=== PATIENT | male | born 1965 | race Caucasian/White ===

== ENCOUNTER → 2024-10-11 | Outpatient (CLI) | payer OTHER, SELFPAY | END | disposition home or self-care (01) | LOC: RAD 14:52 | PROVIDERS: Referring Provider Surgery Plastic and Reconstructive Surgery; Visit Provider Surgery Plastic and Reconstructive Surgery | DX: M67.441 Ganglion, right hand (principal) | CPT/HCPCS: 73140 ==

== ENCOUNTER 2024-10-31 07:07 | Day surgery (SDC) | payer OTHER, SELFPAY ==
[2024-10-31] VITALS (8 sets, daily range): BP systolic 124–152; BP diastolic 79–92; PULSE 50–64; RESP 16–18; TEMP 36–36.1; O2SAT 95–100; BMI 27.0
--- OUTSIDE RECORDS SUMMARY | 2024-10-31 07:11 | XMS RPT_ITS | CCD ---
Author Organization [facility] Care Team Providers Care Case Picker Name Role Phone Antionette Rodney PA-C Primary Care Provider [phone] Unavailable Primary Care Provider Unavailabl e Antionette Rodney PA-C Primary Care Provider [phone] Genia Hernández MD Primary Care Provider [employer] STORE OPERATIONS ASSOCIATE.Angie FISHER Unavailable [employer] STORE OPERATIONS ASSOCIATE.Angie FISHER Unavailable GENIA HERNÁNDEZ Primary Care Unavailab le PODLOGAR, ANGIE Referring Unavailable [place] STORE OPERATIONS ASSOCIATE.Betzaida FISHER Unavailable RENETTA WHITMORE Attending Unavailable PODLOGANGIE SANDERS Referring Unavailable GENIA HERNÁNDEZ Primary Care Unavailab HERMINIO Avery Attending Unavailable RENETTA WHITMORE Referring Unavailable GENIA HERNÁNDEZ Primary Care Unavailab KAY Alcantara Attending Unavailable PODLOGARANGIE Attending Unavailable GENIA HERNÁNDEZ Primary Care Unavailab le PODLOGAR, ANGIE Referring Unavailable GENIA HERNÁNDEZ Primary Care Unavailab le PODLOGARANGIE Referring Unavailable GENIA HERNÁNDEZ Primary Care Unavailab Dr. Jeet Whiting MD Attending Provider Care Physician, No Primary Primary Care Provider Unavailable Dr. Jeet Monge MD Referring Provider Jeet Monge Attending Unavailable Jeet Monge Attending Unavailable Jeet Monge Referring Unavailable Care Physician, No Primary Primary Care Unava ilJeet Driver Attending Unavailable Care Physician, No Primary Primary Care Unava ilJeet Driver Referring Unavailable Medications Current Medications Medication Drug Class(es) Dates Sig (Normalized) Sig (Original) CPAP (12 sources) Start: 10-25-2018 CPAP Indicatio ns: SUE (obstructive sleep apnea) autoPAP 5-15 cmH2O, mask, tubing, filters, heated humidity, lifetime supplies. Dx: SUE 1 Device 10/25/2018 Active Start: 10-25-2018 CPAP Indicatio ns: SUE (obstructive sleep apnea) autoPAP 5-15 cmH2O, mask, tubing, filters, heated humidity, lifetime supplies. Dx: SUE 1 Device 0 10/25/2018 Active Comment on above: autoPAP 5-15 cmH2O, mask, tubing, filters, heated humidity, lifetime supplies. Dx: SUE CPAP/BIPAP/OTHER (8 sources) Start: 12-26-2023 End: 05-12-2051 CPAP/BIPAP/OTHER Indications: SUE on CPAP Auto CPAP 5-15 cmH2O DME [facility] 1 Each 12/26/2023 05/12/2051 Active Start: 12-13-2023 End: 12-13-2023 CPAP/BIPAP/OTHER Type .CPAPS ettings into a note to see current settings/supplies/DME information. 1 Each 12/13/2023 12/13/[address] (Nk) (1 source) Start: 10-19-[address] (Nk) Active October 19, 2024 12:00am oseltamivir 75 mg oral capsule (2 sources) Neuraminidase Inhibitor Start: 02-02-2022 End: 02-07-2022 take 1 capsule by mouth twice daily oseltamivir (TAMIFLU) 75 mg capsule Indications: Flu-like symptoms Take 1 capsule by mouth twice daily for 5 days. 10 capsule 0 02/02/2022 02/07/2022 Active Comment on above: Take 1 capsule by [facility] twice daily for 5 days. Completed/Discontinued Medications Medication Drug Class(es) Dates Sig (Normalized) Sig (Original) acetaminophen 300 mg / HYDROcodone bitartrate 5 mg oral tablet (2 sources) Opioid Agonist Start: 02-01-2013 End: 10-11-2024 Hydrocodone-Acetam inophen (Vicodin 5-300 Mg Tablet) 1 EACH tablet Discontinued 1 {tbl} PO EVERY 4 HOURS NEEDED as needed for Mod-Severe (Pain Scale 6-10) 20 February 01, 2013 1:00am October 11, 2024 2:33pm calcium chloride 0.0014 meq/ml / potassium chloride 0.004 meq/ml / sodium chloride 0.103 meq/ml / sodium lactate 0.028 meq/ml injectable solution (1 source) Start: 09-28-2024 End: 09-28-2024 take 30 mL intravenously every hour 30 mL/hr, INTRAVENOUS, CONTINUOUS, Starting on Tue09/28/24 at 0830, Until Tue09/28/24 at 0921, Preprocedure cephalexin 500 mg oral capsule (2 sources) Cephalosporin Antibacterial Start: 02-01-2013 End: 10-11-2024 take 1 capsule by mouth every twelve hours Cephalexin 500 MG capsule Discontinued 500 mg PO EVERY 12 HOURS 20 February 01, 2013 1:00am October 11, 2024 2:33pm diphenhydrAMINE (1 source) Histamine-1 Receptor Antagonist Start: 09-28-2024 End: 09-28-2024 12.5-50 mg, INTRAVENOUS, DIRECTED, Starting on Tue09/28/24 at 0900, Until Tue09/28/24 at 1259, DOSING DIRECTED BY PHYSICIAN FOR PROCEDURAL SEDATION ONLY, Intraprocedure 1 ml fentaNYL 0.05 mg/ml injection (1 source) Opioid Agonist Start: 09-28-2024 End: 09-28-2024 25-100 mcg, INTRAVENOUS, DIRECTED, Starting on Tue09/28/24 at 0900, Until Tue09/28/24 at 1259, DOSING DIRECTED BY PHYSICIAN FOR PROCEDURAL SEDATION ONLY, Intraprocedure 5 ml midazolam 1 mg/ml injection (1 source) Benzodiazepine Start: 09-28-2024 End: 09-28-2024 1-5 mg, INTRAVENOUS, DIRECTED, Starting on Tue09/28/24 at 0900, Until Tue09/28/24 at 1259, DOSING DIRECTED BY PHYSICIAN FOR PROCEDURAL SEDATION ONLY, Intraprocedure mometasone furoate 0.05 mg/actuat metered dose nasal spray (2 sources) Corticosteroid Start: 01-23-2013 End: 10-11-2024 Mometasone (Nasonex) 1 SPRAY spray,non-aerosol Discontinued 2 NMA NASAL DAILY January 23, 2013 1:00am October 11, 2024 2:34pm Problems Active Problems Problem Classification Problem Date Documented Da te Episodic/Chronic Immunizations and screening for infectious disease (4 sources) Viral screening status; Translations: [Encounter for screening for other viral diseases] Onset: 07-16-2024 07-16-2024 Episodic Miscellaneous mental health disorders (20 sources) Psychosexual dysfunction associated with inhibited sexual excitement; Translations: [Other sexual dysfunction not due to a substance or known physiological condition] Onset: 03-18-2005 03-18-2005 Chronic Nonspecific chest pain (6 sources) Chest pain; Translations: [Chest pain, unspecified] Onset: 07-16-2024 07-16-2024 Episodic Other and unspecified benign neoplasm (1 source) History of polyp of colon; Translations: [Personal history of colon polyps, unspecified] 07-27-2024 Episodic Other connective tissue disease (3 sources) Digital mucous cyst; Translations: [Ganglion, unspecified hand] 10-11-2024 Episodic Other connective tissue disease (1 source) Ganglion, unspecified hand; Translations: [Ganglion, unspecified hand] Onset: 10-28-2024 Episodic Other gastrointestinal disorders (3 sources) Altered bowel function; Translations: [Change in bowel habit] 07-16-2024 Episodic Other gastrointestinal disorders (1 source) Change in bowel habit; Translations: [Change in bowel habits] Onset: 07-27-2024 Episodic Other screening for suspected conditions (not mental disorders or infectious disease) (20 sources) Patient encounter status; Translations: [Encounter for screening for malignant neoplasm of colon] Onset: 08-22-2015 Resolved: 08-22-2015 08-22-2015 Episodic Other upper respiratory infections (1 source) Viral upper respiratory tract infection; Translations: [Acute upper respiratory infection, unspecified] Episodic Residual codes; unclassified (20 sources) Obstructive sleep apnea syndrome; Translations: [Obstructive sleep apnea (adult) (pediatric)] Onset: 04-06-2016 11-05-2019 Chronic Residual codes; unclassified (1 source) Obstructive sleep apnea (adult) (pediatric); Translations: [SUE (obstructive sleep apnea)] Onset: 11-05-2019 Chronic Residual codes; unclassified (1 source) Influenza-like symptoms; Translations: [Other general symptoms and signs] Episodic Residual codes; unclassified (1 source) Family history of cancer of colon; Translations: [Family history of malignant neoplasm of digestive organs] 07-27-2024 Episodic Screening and history of mental health and substance abuse codes (2 sources) Encounter for screening examination for other mental health and behavioral disorders; Translations: [Encounter for screening for depression] Onset: 07-16-2024 Episodic Past or Other Problems Problem Classification Problem Date Documented Da te Episodic/Chronic Miscellaneous mental health disorders (20 sources) Emotional problems; Translations: [Other symptoms and signs involving emotional state] Onset: 03-09-2005 03-09-2005 Episodic Other circulatory disease (20 sources) Elevated blood-pressure reading without diagnosis of hypertension; Translations: [Elevated blood-pressure reading, without diagnosis of hypertension] Onset: 03-18-2005 03-18-2005 Episodic Spondylosis; intervertebral disc disorders; other back problems (20 sources) Neck pain; Translations: [Cervicalgia] Onset: 06-09-2009 06-09-2009 Episodic Unclassified (1 source) Patient encounter status 09-28-2024 Results Test Name Value Interpretation Reference Range Facility Finger(s) Min 2 Viewson 09-13 Finger(s) Min 2 Views [facility] Imaging Services [address] [place] [id number] Finger(s) Min 2 Views MR#: [id number] Acct: [id number] Name: SABRINA GILLETTE Rep #: [id number] : 1965 M 59 From: Camden Garcia MD PCP: Care Physician,No Primary Status: REG CLI Study: Finger(s) Min 2 Views Date of Exam: 10/11/24 Exam# [id number] Ordering Dr: Jeet Monge MD PROCEDURE: FINGER(S) MIN 2 VIEWS 10/11/2024 REASON FOR EXAM: MUCOUS CYST OF FINGER TECHNIQUE: FINGER(S) MIN 2 VIEWS COMPARISON: No FINDINGS: No acute bony pathology. Very mild D IP joint osteoarthritis. Localized soft tissue swelling, posterior to the D IP joint, possibly a skin cyst or nodule measuring up to 7 mm. RAD/Finger(s) Min 2 Views IMPRESSION: Possible skin cyst or nodule posterior to the D IP joint. Reading Location: RAD-GARCIA-2 CC: Dr. Jeet Monge MD; No Primary Care Physician Cigar Making Supervisor: Signed [facility] Plastic Surgery Visit Report on 10-11-2024 Plastic Surgery Visit Report [facility] Plastic Reconstructive Surgery [address], [address] [place], [place] [address] OFFICE VISIT Date of Service: 10/11/24 MR#: [id number] Acct: [id number] Name: SABRINA GILLETTE Rep #: [id number] : 1965 Provider: Dr. Jeet Monge MD Age/Sex: 59/M Location: [facility] Status: Signed Intake Vital Signs 3 02/01/13 09:07 10/11/24 14:34 Height 5 ft 11 in 5 ft 11 in Weight: 250 lb BMI 34.8 BP 139/81 H Blood Pressure Location Lt brachial Position Sitting Respiration 18 Pulse 51 L Temp 97.8 F Temp Source Oral Pulse Oximetry (%) 96 Oxygen Delivery Method room air Intake Visit Reasons: MYXOID CYST Chief Complaint: mucous cyst right index finger Is patient in pain?: No Allergies No Known Allergies Allergy (Verified 10/11/24 14:28) [facility] Medical History Arthritis Family History Other Alcoholism Anemia Arthritis Cancer Colon cancer Lung cancer Skin cancer Social History Smoking Status: Never smoker alcohol intake: never substance use type: does not use additional social history: pt denies vaping, denies edibles, denies marijuana use, denies aspirin and ibuprofen use does not have family history of blood clots HPI MYXOID CYST Details: The patient is a 59-year-old male presenting with a left index finger ganglion cyst. The cyst has been present for approximately six months and has increased slightly in size over time. The patient denies any drainage from the cyst. The patient has a history of joint pain in his hands over the past few years, suggesting possible arthritis, although he has not been officially diagnosed with arthritis in his hands. He reports a history of arthritis in his back. 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 He is right-handed and has almost ripped the cyst open while sanding at home. The patient is generally healthy, does not smoke, and has no history of diabetes. Attestation: Documentation on this patient encounter was supported using ambient scribe technology/ voice AI technology. The patient consented to recording for the purpose of documenting the encounter. Provider reviewed content of the generated note prior to signature. ROS Details - Musculoskeletal: Reports joint pain in hands over the past few years. Denies any drainage from the cyst. - General: Denies smoking and diabetes. General General: Yes good health; No fatigue, fever(s) or weight loss HENMT HENMT: No rhinitis, sore throat/mouth sore, nasal congestion, contacts or glaucoma Endo Endocrine: No thyroid disease, polydipsia, heat intolerance, cold intolerance, hepatitis or excessive urine Skin Skin: No Bleeding, bruising, changing moles or suspicious lesion Musc Musculoskeletal: Yes joint pain and joint stiffness; No muscle weakness, back pain, osteoarthritis or Muscle aches/ myalgia Neuro Neurological: No headache(s), No lightheadedness and No numbness Cardio Cardiovascular: No chest pain, pacemaker, fatigue or shortness of breat with exertion Psych Psychiatric: No depression, claustrophobia or anxiety Resp Respiratory: Yes sleep apnea; No spitting up, shortness of breath, asthma, emphysema, TB, Cough or Smoker Gastro Gastrointestinal: No diarrhea, constipation, blood in stool, nausea, vomiting or abdominal bloating [place]igo Hematologic: No anemia, No bleeding and No abnormal bleeding Genitourinary: No urinary frequency, blood in urine or incontinence Exam Details L Upper Extremity Inspection: Left index finger dorsal mucous cyst, no drainage observed. Viable skin over the cyst. Transilluminates. Masses over the DIP joint. no collateral ligament instability Palpation: No mallet finger Motor: Able to bend and extend all MP, PIP, and DIP joints. Sensory: Intact to light touch on the radial and ulnar borders. Vascular: Finger tips are warm and well perfused with greater than 2 second capillary refill. Coding Level of Care Code Off vis,new,level 3 Diagnoses Mucous cyst of finger M67.449 Assessment and Plan (No Qualifiers) Assessment and Plan (1) Mucous cyst of finger: Status: Acute Plan: I talked to the patient extensively about the risks of surgery, including bleeding, infection, damage to surrounding structures, poor scaring, surgical site dehiscence and wound formation, need for wound care, need for repeat operations, failure to obtain the desired result, DVT/PE, and the risks of anesthesia including , including stroke (from low blood pressure/ischem (more content not included)... [facility] [id number] 09-28-2024 [id number] HNO ID: [id number] Author: MEL SOUSA RN Service: ? Author Type: Registered Nurse Type: [id number] Filed: 09/28/2024 09:27 Note Text: The patient received a copy of Colonoscopy discharge instructions that contain information for how to contact the physician who performed the procedure and when to seek medical care. [facility] Colonoscopyon 09-28-2024 Colonoscopy [facility] Gastrointestinal Endoscopy Patient Name: Sabrina Gillette Procedure Date: 09/28/2024 8:55 AM Date of : 1965 Admit Type: Outpatient Age: 59 Gender: Male Note Status: Finalized Procedure: Colonoscopy Indications: Screening for colorectal malignant neoplasm Providers: Herminio Webber MD Patient Profile: This is a 59 year old male. Refer to note in patient chart for documentation of history and physical. Last Colonoscopy: August 2015. Referring Physician: Renetta Whitmore (Referring MD) Medicines: Fentanyl 100 micrograms IV, Midazolam 5 mg IV, Diphenhydramine 50 mg IV Complications: No immediate complications. Estimated blood loss: None. Requesting Provider: Procedure: Pre-Anesthesia Assessment: - Prior to the procedure, a History and Physical was performed, and patient medications and allergies were reviewed. The patient's tolerance of previous anesthesia was also reviewed. The risks and benefits of the procedure and the sedation options and risks were discussed with the patient. All questions were answered, and informed consent was obtained. Prior Anticoagulants: The patient has taken no anticoagulant or antiplatelet agents. ASA Grade Assessment: II - A patient with mild systemic disease. After reviewing the risks and benefits, the patient was deemed in satisfactory condition to undergo the procedure. After I obtained informed consent, the scope was passed under direct vision. Throughout the procedure, the patient's blood pressure, pulse, and oxygen saturations were monitored continuously. The Colonoscope was introduced through the anus and advanced to the cecum, identified by appendiceal orifice and ileocecal valve. The colonoscopy was performed without difficulty. The patient tolerated the procedure well. The quality of the bowel preparation was adequate to identify polyps greater than 5 mm in size. The ileocecal valve, appendiceal orifice, and rectum were photographed. Moderate Sedation: The administration of moderate sedation was initiated at 08:56. Moderate (conscious) sedation was personally administered by the endoscopist. The following parameters were monitored: oxygen saturation, heart rate, blood pressure, respiratory rate, EKG, adequacy of pulmonary ventilation, and response to care. Total physician intraservice time was 15 minutes. Findings: The perianal and digital rectal examinations were normal. Non-bleeding internal hemorrhoids were found during retroflexion. The hemorrhoids were mild and small. The exam was otherwise without abnormality. Impression: - Non-bleeding internal hemorrhoids. - The examination was otherwise normal. - No specimens collected. Recommendation: - Patient has a contact number available for emergencies. The signs and symptoms of potential delayed complications were discussed with the patient. Return to normal activities tomorrow. Written discharge instructions were provided to the patient. - Resume previous diet. - Continue present medications. - Repeat colonoscopy in 10 years for screening purposes. - Return to primary care physician PRN. Procedure Code(s): --- Professional --- 92182, Colonoscopy, flexible; diagnostic, including collection of specimen(s) by brushing or washing, when performed (separate procedure) G0500, Moderate sedation services provided by the same physician or other qualified health intensive care specialist performing a gastrointestinal endoscopic service that sedation supports, requiring the presence of an independent trained observer to assist in the monitoring of the patient's level of consciousness and physiological status; initial 15 minutes of intra-service time; patient age 5 years or older (additional time may be reported with 43218, as appropriate) Diagnosis Code(s): --- Professional --- Z12.11, Encounter for screening for malignant neoplasm of colon K64.8, Other hemorrhoids CPT copyright 2020 [employer]. All rights reserved. The codes documented in this report are preliminary and upon oracle applications analyst review may be revised to meet current compliance requirements. Attending Participation: I personally performed the entire procedure. Scope In: 9:00:44 AM Scope Out: 9:11:32 AM MD Herminio Alonso MD 09/28/2024 9:16:55 AM This report has been signed electronically by Herminio Webber MD Number of Addenda: 0 Note Initiated On: 09/28/2024 8:55 AM Estimated Blood Loss: Estimated blood loss: none. [facility] Colonoscopy Study observatio non 09-28-2024 [facility] Gastrointestinal Endoscopy Patient Name: Sabrina Gillette Procedure Date: 09/28/2024 8:55 AM Date of : 1965 Admit Type: Outpatient Age: 59 Gender: Male Note Status: Finalized Procedure: Colonoscopy Indications: Screening for colorectal malignant neoplasm Providers: Herminio Webber MD Patient Profile: This is a 59 year old male. Refer to note in patient chart for documentation of history and physical. Last Colonoscopy: August 2015. Referring Physician: Renetta Whitmore (Referring MD) Medicines: Fentanyl 100 micrograms IV, Midazolam 5 mg IV, Diphenhydramine 50 mg IV Complications: No immediate complications. Estimated blood loss: None. Requesting Provider: Procedure: Pre-Anesthesia Assessment: - Prior to the procedure, a History and Physical was performed, and patient medications and allergies were reviewed. The patient's tolerance of previous anesthesia was also reviewed. The risks and benefits of the procedure and the sedation options and risks were discussed with the patient. All questions were answered, and informed consent was obtained. Prior Anticoagulants: The patient has taken no anticoagulant or antiplatelet agents. ASA Grade Assessment: II - A patient with mild systemic disease. After reviewing the risks and benefits, the patient was deemed in satisfactory condition to undergo the procedure. After I obtained informed consent, the scope was passed under direct vision. Throughout the procedure, the patient's blood pressure, pulse, and oxygen saturations were monitored continuously. The Colonoscope was introduced through the anus and advanced to the cecum, identified by appendiceal orifice and ileocecal valve. The colonoscopy was performed without difficulty. The patient tolerated the procedure well. The quality of the bowel preparation was adequate to identify polyps greater than 5 mm in size. The ileocecal valve, appendiceal orifice, and rectum were photographed. Moderate Sedation: The administration of moderate sedation was initiated at 08:56. Moderate (conscious) sedation was personally administered by the endoscopist. The following parameters were monitored: oxygen saturation, heart rate, blood pressure, respiratory rate, EKG, adequacy of pulmonary ventilation, and response to care. Total physician intraservice time was 15 minutes. Findings: The perianal and digital rectal examinations were normal. Non-bleeding internal hemorrhoids were found during retroflexion. The hemorrhoids were mild and small. The exam was otherwise without abnormality. Impression: - Non-bleeding internal hemorrhoids. - The examination was otherwise normal. - No specimens collected. Recommendation: - Patient has a contact number available for emergencies. The signs and symptoms of potential delayed complications were discussed with the patient. Return to normal activities tomorrow. Written discharge instructions were provided to the patient. - Resume previous diet. - Continue present medications. - Repeat colonoscopy in 10 years for screening purposes. - Return to primary care physician PRN. Procedure Code(s): --- Professional --- 76119, Colonoscopy, flexible; diagnostic, including collection of specimen(s) by brushing or washing, when performed (separate procedure) G0500, Moderate sedation services provided by the same physician or other qualified health intensive care specialist performing a gastrointestinal endoscopic service that sedation supports, requiring the presence of an independent trained observer to assist in the monitoring of the patient's level of consciousness and physiological (more content not included)... [facility] Radiology Study observation (narrative) [facility] HISTORY PHYSICALon HISTORY PHYSICAL HNO ID: [id number] Author: HERMINIO WEBBER MD Service: General Surgery Author Type: Physician Type: H&P Filed: 09/28/2024 08:47 Note Text: HISTORY AND PHYSICAL Sabrina Gillette : 1965 REFERRING PHYSICIAN: Angie Contreraslogfelix [address] [facility] [address] CHIEF COMPLAINT: Patient presents with: Consult: Change in bowel habits, More constipated than usual, past six months. HPI: Sabrina is a 59 year old male referred for endoscopy. Sabrina notes due for colon cancer screening-hx of colon polyp (2016). Sabrina denies abdominal pain.. Sabrina denies diarrhea. Sabrina denies constipation. Sabrina notes a change in bowel habits. -feels like something is blocking his bowel movements, has a bm every other day with no change in size but notes he has to strain more to pass the stool Sabrina denies melena. Sabrina denies bright red blood per rectum. Sabrina denies hemorrhoids. Sabrina notes family history of colon issues. Father with colon cancer in his 80's Sabrina denies heartburn. Sabrina denies dysphagia. Sabrina denies a history of ulcers/ peptic ulcer disease. Sabrina has a hx of SUE c/w CPAP. Sarbina had a c/o CP during his annual visit- PCP ordered labs, EKG which were normal, has stress test scheduled for September. He SOB, dizziness, palpitations, syncope, edema, recent hospitalizations. Notes CP for the last 2 years- states it is nagging and has no associated symptoms . Sabrina has undergone prior endoscopy. Last colonoscopy was 08/[address] Cummins at [facility]. Sedation:Fentanyl 100 micrograms IV, Midazolam 5 mg IV, Diphenhydramine 50 mg IV Impression: - One 5 mm polyp in the distal transverse colon. Resected and retrieved. CONVERTED FINAL DIAGNOSIS Colon, distal transverse polyp, biopsy - Colonic mucosa with focal prominence of lymphoid aggregates and no other diagnostic abnormalities. - No adenomatous epithelium identified. MC/rw 08/25/2015 CURRENT MEDICATIONS Current Outpatient Medications Medication Sig CPAP/BIPAP/OTHER Auto CPAP 5-15 cmH2O DME [facility] No current facility-administered medications for this visit. ALLERGIES: Patient has no known allergies. PAST MEDICAL HISTORY PAST MEDICAL HISTORY Diagnosis Date Anxiety Obstructive sleep apnea DME [facility] PAST SURGICAL HISTORY PAST SURGICAL HISTORY Procedure Laterality Date COLONOSCOPY FLX DX W/COLLJ SPEC WHEN PFRMD 08/22/2015 Colonoscopy FAMILY HISTORY FAMILY HISTORY Problem Relation Age of Onset Cancer Mother pancreatic other (cancer) Mother Lung with met to brain Brain Cancer Mother Colon Cancer Father Skin Cancer Father other (MS) Sister SOCIAL HISTORY Social History Tobacco Use Smoking status: Never Smokeless tobacco: Never Substance Use Topics Alcohol use: No Drug use: No REVIEW OF SYMPTOMS: REVIEW OF SYSTEMS: General: The patient denies fatigue, denies weight loss, denies weight gain, denies feeling hot, and feelings of cold. Eyes: The patient denies glaucoma, denies eye injury/surgery, + glasses or contacts. Ear/Nose/Throat: The patient denies allergies, denies hayfever, denies ear infections, and denies bloody noses. Cardiovascular: The patient denies chest pain, denies heart disease, denies high blood pressure, denies high cholesterol, and denies poor circulation. Respiratory: The patient denies tuberculosis, denies pneumonia, denies frequent cough, denies shortness of breath, and denies coughing up blood. Gastrointestinal: The patient denies difficulty swallowing, denies acid reflux, denies ulcers, denies jaundice/hepatitis, denies gallbladder problems, denies vomiting, denies black or tarry stools, denies hemorrhoids, denies bleeding from rectum, denies diverticulitis, denies constipation, denies diarrhea, denies loss of stool control, and denies hernias. Kidney/Bladder: The patient denies kidney stones, denies urine infections, and denies bloody urine. Skin: The patient denies a history of skin cancer, denies bleeding/changing moles, and denies a history of skin rash. Neurologic: The patient denies a history of epilepsy/convulsions, denies headaches, denies head/spinal injuries, and denies stroke/TIA. Psychiatric: The patient denies psychiatric medications, denies depression, and denies voices. Endocrine: The patient denies thyroid disorders, denies diabetes, and denies hormonal problems. Hematologic: The patient denies a history of bruising, denies bleeding, and denies anemia. Infections: The patient denies a history of measles and mumps, denies rheumatic fever, and denies sexually transmitted diseases. Musculoskeletal: The patient denies back pain/injury, denies back problems, denies sciatica, denies knee/foot trouble, denies arthritis, or denies gout. PHYSICAL EXAMINATION: General: The patient is 59 year old, male well nourished, well hydrated in no acute distress. The patient is oriented to time, place, and person. (more content not included)... Normal [facility] SABRINA GILLETTE ([id number]) 1965 Date Time Provider Department 08/02/24 RENETTA WHITMORE During your visit today, we recorded the following information about you: Renetta Whitmore APRN.INFORMATICS PHYSICIAN LIAISON 08/02/2024 7:51 AM Signed Stress test is normal. Can call Sabrina and schedule his colonoscopy in [facility]? 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] 03/18/2005 Neck Pain [M54.2] 06/09/2009 Colon cancer screening [Z12.11] 08/22/2015 08/22/2015 SUE (obstructive sleep apnea) [G47.33] 04/06/2016 Encounter Status:Closed by RENETTA WHITMORE on 08/02/24 Normal [facility] EXERCISE STRESS ECG (WITHOUT IMAGING)on 07-31-2024 EXERCISE STRESS ECG (WITHOUT IMAGING) Stress [employer] Architect Report: Exercise Stress ECG (without Imaging) [facility] Date of service: 07/31/2024 12:32:39 PM Supervising physician: Sue Bello MD PATIENT: Name: SABRINA GILLETTE Age: 59 years Gender: M The supervising physician was in the department and immediately available. Final Stress ECG Report: Exercise Stress ECG (without Imaging) [facility] Date of service: 07/31/2024 12:32:39 PM Ordering physician: ANGIE ANDERSON emr specialist: Jasmyne Onofre Payroll Administrator: Cassie Whyte Interpreting physician: Juan M Magana MD Patient name: SABRINA GILLETTE Age: 59 years Gender: M Indication: Chest pressure / Chest tightness Stress ECG Conclusion: Conclusion: Normal Stress ECG Summary: The patient's resting heart rate was 58 bpm and blood pressure was 142/82 mmHg. The patient exercised according to the Deny protocol. The estimated end-exercise MET level achieved using the FRIEND equation was 9.4, which is within the 50th to 75th percentile for age and sex. The estimated end-exercise MET level achieved using the previous ACSM equation was 11.8. The test was terminated due to end of protocol and the total exercise time was 10 minutes and 30 seconds. Other symptoms during the test included SOB and leg fatigue. The maximum heart rate was 162 bpm, which is 101% of the predicted heart rate for age. This is an adequate heart rate response. Peak blood pressure was 214/98 mmHg. The double product achieved was [address]. Medications: Last Used NONE Resting ECG: Sinus Bradycardia Symptoms at rest: No symptoms Exercise Protocol: Deny Stress Exercise Table: +-----+ +------ --+ +---+---+--- +----+----+ Stage Speed (MPH) Grade(%) Time (min) HR SYS AMAURY RPE METS +-----+ +------ --+ +---+---+--- +----+----+ 1 1.7 10.0 3.0 95 180 90 13.0 4.2 +-----+ +------ --+ +---+---+--- +----+----+ 2 2.5 12.0 6.0 118 202 94 14.0 6.1 +-----+ +------ --+ +---+---+--- +----+----+ 3 3.4 14.0 9.0 139 208 96 16.0 8.3 +-----+ +------ --+ +---+---+--- +----+----+ +-----+ +------ ---+ +---+---+-- -+----+----+ Speed (MPH) Grade (%) Time (min) HR SYS AMAURY RPE METS +-----+ +------ ---+ +---+---+-- -+----+----+ Final 4.2 16.0 10.50 162 214 98 17.0 9.4 +-----+ +------ ---+ +---+---+-- -+----+----+ Recovery Table: +------+ +---+-- -+---+ Stage Time (min) HR SYS AMAURY +------+ +---+-- -+---+ 1 1.0 137 210 92 +------+ +---+-- -+---+ 2 2.0 105 212 94 +------+ +---+-- -+---+ 3 3.0 91 196 88 +------+ +---+-- -+---+ 4 5.0 90 154 90 +------+ +---+-- -+---+ Stress Observations: Resting HR: 58 bpm Peak HR: 162 bpm (101% MPHR) Resting BP: 142 / 82 mmHg Peak BP: 214 / 98 mmHg Total exercise time: 10 minutes 30 seconds METS achieved: 9.4 Chronotropic response index (CRI): 1.02 Heart rate recovery (HRR): 25 bpm Rate Pressure Product (RPP): 05805 Lopez Treadmill Score: 10.5 Stress Exercise Observations: Reason for test termination: end of protocol, Symptoms during test: Other symptoms during the test included SOB and leg fatigue, Heart rate response: Adequate heart rate response, Normal CRI (>0.8 Not on B Naveed) and Normal HRR (>12 or >[address]/EC), Blood pressure response: Normal BP response, ST segment and T wave changes: No ST changes, Lopez Treadmill Score: Normal Lopez Treadmill Score (>=5) and Arrhythmias: PACs and Unifocal PVCs Metabolic Exercise Data Variable: Observed value [Expected Range] HGI: 3.2 [>1.06 bpm/mmHg] IMPORTANT NOTE REGARDING ESTIMATED MET VALUES: Effective 12/30/2019, the reference equation for determining estimated MET values for [facility] stress tests changed. Comparison of test results before and after that date may show a change in estimated MET values for peak/max exercise despite a test duration that is similar in length. The validity of the new FRIEND equation for exercise METS is endorsed by the [place] [employer]. Erik P, Denisha LA, Suyapa R, Raudel J, Jessica J. New Generalized Equation for Predicting Maximal Oxygen Uptake (from the Fitness Registry and the Importance of Exercise National Database). The [place] Journal of Cardiology. 2017;120(4):688-692). Final CC [employer] Medical Image : [id number] See Link below for Image [facility] 07-30-2024 CNPN Telephone (CDLBME) ----- SABRINA GILLETTE ([id number]) 1965 M Date Time Provider Department 07/30/24 CASSIE WHYTE CDLBME During your visit today, we recorded the following information about you: Cassie Whyte, RN 07/30/2024 1:05 PM Signed Spoke with patient regarding reminder for stress test tomorrow and given instructions. 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] 03/18/2005 Neck Pain [M54.2] 06/09/2009 Colon cancer screening [Z12.11] 08/22/2015 08/22/2015 SUE (obstructive sleep apnea) [G47.33] 04/06/2016 Encounter Status:Closed by CASSIE WHYTE on 07/30/24 [facility] 07-27-2024 CNOV Office Visit (GENSWS ) ----- SABRINA GILLETTE ([id number]) 1965 M Date Time Provider Department 07/27/24 2:30 PM HAIM RENETTA DUMONT During your visit today, we recorded the following information about you: Pulse Respiration Blood pressure Weight 60/minute 14/minute 136/85 88.9 kg Renetta Whitmore APRN.INFORMATICS PHYSICIAN LIAISON 07/27/2024 2:58 PM Signed HISTORY AND PHYSICAL Sabrina Gillette : 1965 REFERRING PHYSICIAN: Angie Contreraslogfelix [address] [facility] [address] CHIEF COMPLAINT: Patient presents with: Consult: Change in bowel habits, More constipated than usual, past six months. HPI: Sabrina is a 59 year old male referred for endoscopy. Sabrina notes due for colon cancer screening-hx of colon polyp (2015). Sabrina denies abdominal pain.. Sabrina denies diarrhea. Sabrina denies constipation. Sabrina notes a change in bowel habits. -feels like something is blocking his bowel movements, has a bm every other day with no change in size but notes he has to strain more to pass the stool Sabrina denies melena. Sabrina denies bright red blood per rectum. Sabrina denies hemorrhoids. Sabrina notes family history of colon issues. Father with colon cancer in his 80's Sabrina denies heartburn. Sabrina denies dysphagia. Sabrina denies a history of ulcers/ peptic ulcer disease. Sabrina has a hx of SUE c/w CPAP. Sabrina had a c/o CP during his annual visit- PCP ordered labs, EKG which were normal, has stress test scheduled for September. He SOB, dizziness, palpitations, syncope, edema, recent hospitalizations. Notes CP for the last 2 years- states it is nagging and has no associated symptoms . Sabrina has undergone prior endoscopy. Last colonoscopy was 08/[address] Cummins at [facility]. Sedation:Fentanyl 100 micrograms IV, Midazolam 5 mg IV, Diphenhydramine 50 mg IV Impression: - One 5 mm polyp in the distal transverse colon. Resected and retrieved. CONVERTED FINAL DIAGNOSIS Colon, distal transverse polyp, biopsy - Colonic mucosa with focal prominence of lymphoid aggregates and no other diagnostic abnormalities. - No adenomatous epithelium identified. MC/rw 08/25/2015 Current Outpatient Medications Medication Sig CPAP/BIPAP/OTHER Auto CPAP 5-15 cmH2O DME [facility] No current facility-administered medications for this visit. ALLERGIES: Patient has no known allergies. PAST MEDICAL HISTORY Diagnosis Date Anxiety Obstructive sleep apnea DME [facility] PAST SURGICAL HISTORY Procedure Laterality Date COLONOSCOPY FLX DX W/COLLJ SPEC WHEN PFRMD 08/22/2015 Colonoscopy FAMILY HISTORY Problem Relation Age of Onset Cancer Mother pancreatic other (cancer) Mother Lung with met to brain Brain Cancer Mother Colon Cancer Father Skin Cancer Father other (MS) Sister Social History Tobacco Use Smoking status: Never Smokeless tobacco: Never Substance Use Topics Alcohol use: No Drug use: No REVIEW OF SYMPTOMS: REVIEW OF SYSTEMS: General: The patient denies fatigue, denies weight loss, denies weight gain, denies feeling hot, and feelings of cold. Eyes: The patient denies glaucoma, denies eye injury/surgery, + glasses or contacts. Ear/Nose/Throat: The patient denies allergies, denies hayfever, denies ear infections, and denies bloody noses. Cardiovascular: The patient denies chest pain, denies heart disease, denies high blood pressure, denies high cholesterol, and denies poor circulation. Respiratory: The patient denies tuberculosis, denies pneumonia, denies frequent cough, denies shortness of breath, and denies coughing up blood. Gastrointestinal: The patient denies difficulty swallowing, denies acid reflux, denies ulcers, denies jaundice/hepatitis, denies gallbladder problems, denies vomiting, denies black or tarry stools, denies hemorrhoids, denies bleeding from rectum, denies diverticulitis, denies constipation, denies diarrhea, denies loss of stool control, and denies hernias. Kidney/Bladder: The patient denies kidney stones, denies urine infections, and denies bloody urine. Skin: The patient denies a history of skin cancer, denies bleeding/changing moles, and denies a history of skin rash. Neurologic: The patient denies a history of epilepsy/convulsions, denies headaches, denies head/spinal injuries, and denies stroke/TIA. Psychiatric: The patient denies psychiatric medications, denies depression, and denies voices. Endocrine: The patient denies thyroid disorders, denies diabetes, and denies hormonal problems. Hematologic: The patient denies a history of bruising, denies bleeding, and denies anemia. Infections: The patient denies a history of measles and mumps, denies rheumatic fever, and denies sexually transmitted diseases. Musculoskeletal: The patient denies back pain/injury, denies back problems, denies sciatica, denies knee/foot trouble, denies arthritis, or denies gout. (more content not included)... Normal [facility] CBC W Auto Differential pane l (Bld)on 07-16-2024 Basophils (Bld) [#/Vol] 0.04 10*3/uL [facility] Basophils/100 WBC (Bld) 0.6 % [facility] Differential cell count method Nom (Bld) Auto [facility] Eosinophils (Bld) [#/Vol] 0.07 10*3/uL [facility] Eosinophils/100 WBC (Bld) 1.1 % [facility] Erythrocyte distribution width (RBC) [Ratio] 12.3 % 11.5 - 15.0 % [facility] Hematocrit (Bld) [Volume fraction] 43.1 % 39.0 - 51.0 % [facility] Hemoglobin (Bld) [Mass/Vol] 15.1 g/dL 13.0 - 17.0 g/dL [facility] Immature granulocytes (Bld) [#/Vol] 0.07 10*3/uL [facility] Immature granulocytes/100 WBC (Bld) 1.1 % [facility] Lymphocytes (Bld) [#/Vol] 1.65 10*3/uL [facility] Lymphocytes/100 WBC (Bld) 24.8 % [facility] MCH (RBC) [Entitic mass] 31.3 pg 26.0 - 34.0 pg [facility] MCHC (RBC) [Mass/Vol] 35 g/dL 30.5 - 36.0 g/dL [facility] MCV (RBC) [Entitic vol] 89.4 fL 80.0 - 100.0 fL [facility] Monocytes (Bld) [#/Vol] 0.51 10*3/uL [facility] Monocytes/100 WBC (Bld) 7.7 % [facility] Neutrophils (Bld) [#/Vol] 4.3 10*3/uL [facility] Neutrophils/100 WBC (Bld) 64.7 % [facility] Nucleated RBC (Bld) [#/Vol] NINF [facility] Nucleated RBC/100 WBC (Bld) [Ratio] 0 % /100 WBC [facility] Platelet mean volume (Bld) [Entitic vol] 10.4 fL 9.0 - 12.7 fL [facility] Platelets (Bld) [#/Vol] 186 10*3/uL [facility] RBC (Bld) [#/Vol] 4.82 10*6/uL 4.20 - 6.0 0 m/uL [facility] WBC (Bld) [#/Vol] 6.64 10*3/uL [facility] Basophils (Bld) [#/Vol] 0.04 10*3/uL Normal <0.11 [facility] Comment on above: Order Comment: Speci men Type: BLOOD SPECIMENOrdering Facility: [facility] Address: [address] [place] [address] Performed By: #### 5 7021-8 ####[facility] LABCLIA [id number] [place] [address] [place] Basophils/100 WBC (Bld) 0.6 % Normal [facility] Comment on above: Order Comment: Speci men Type: BLOOD SPECIMENOrdering Facility: [facility] Address: [address] [place] [address] Performed By: #### 5 7021-8 ####[facility] LABCLIA [id number] [place] [address] [place] Differential cell count method Nom (Bld) Auto Normal [facility] Comment on above: Order Comment: Speci men Type: BLOOD SPECIMENOrdering Facility: [facility] Address: [address] [place] [address] Performed By: #### 5 7021-8 ####[facility] LABCLIA [id number] [place] [address] [place] Eosinophils (Bld) [#/Vol] 0.07 10*3/uL Normal <0.46 [facility] Comment on above: Order Comment: Speci men Type: BLOOD SPECIMENOrdering Facility: [facility] Address: [address] [place] [address] Performed By: #### 5 7021-8 ####[facility] LABIA [id number] [place] [address] [place] Eosinophils/100 WBC (Bld) 1.1 % Normal [facility] Comment on above: Order Comment: Speci men Type: BLOOD SPECIMENOrdering Facility: [facility] Address: [address] [place] [address] Performed By: #### 5 7021-8 ####[facility] LABIA [id number] [place] [address] [place] Erythrocyte distribution width (RBC) [Ratio] 12.3 % Normal 11.5-15.0 [facility] Comment on above: Order Comment: Speci men Type: BLOOD SPECIMENOrdering Facility: [facility] Address: [address] [place] [address] Performed By: #### 5 7021-8 ####[facility] LABIA [id number] [place] [address] [place] Hematocrit (Bld) [Volume fraction] 43.1 % Normal 39.0-51.0 [facility] Comment on above: Order Comment: Speci men Type: BLOOD SPECIMENOrdering Facility: [facility] Address: [address] [place] [address] Performed By: #### 5 7021-8 ####[facility] LABIA [id number] [place] [id number] [place] Hemoglobin (Bld) [Mass/Vol] 15.1 g/dL Normal 13.0-17.0 [facility] Comment on above: Order Comment: Speci men Type: BLOOD SPECIMENOrdering Facility: [facility] Address: [address] [place] [address] Performed By: #### 5 7021-8 ####[facility] LABCLIA [id number] [place] [address] [place] Immature granulocytes (Bld) [#/Vol] 0.07 10*3/uL Normal <0.10 [facility] Comment on above: Order Comment: Speci men Type: BLOOD SPECIMENOrdering Facility: [facility] Address: [address] [place] [address] Performed By: #### 5 7021-8 ####[facility] LABCLIA [id number] [place] [address] [place] Immature granulocytes/100 WBC (Bld) 1.1 % Normal [facility] Comment on above: Order Comment: Speci men Type: BLOOD SPECIMENOrdering Facility: [facility] Address: [address] [place] [address] Performed By: #### 5 7021-8 ####[facility] LABCLIA [id number] [place] [address] [place] Lymphocytes (Bld) [#/Vol] 1.65 10*3/uL Normal 1.00-4.00 [facility] Comment on above: Order Comment: Speci men Type: BLOOD SPECIMENOrdering Facility: [facility] Address: [address] [place] [address] Performed By: #### 5 7021-8 ####[facility] LABCLIA [id number] [place] [address] [place] Lymphocytes/100 WBC (Bld) 24.8 % Normal [facility] Comment on above: Order Comment: Speci men Type: BLOOD SPECIMENOrdering Facility: [facility] Address: [address] [place] [address] Performed By: #### 5 7021-8 ####[facility] LABCLIA [id number] [place] [address] [place] MCH (RBC) [Entitic mass] 31.3 pg Normal 26.0-34.0 [facility] Comment on above: Order Comment: Speci men Type: BLOOD SPECIMENOrdering Facility: [facility] Address: [address] [place] [address] Performed By: #### 5 7021-8 ####[facility] LABIA [id number] [address] [address] [place] MCHC (RBC) [Mass/Vol] 35.0 g/dL Normal 30.5-36.0 [facility] Comment on above: Order Comment: Speci men Type: BLOOD SPECIMENOrdering Facility: [facility] Address: [address] [place] [address] Performed By: #### 5 7021-8 ####[facility] [id number] [place] [address] [place] MCV (RBC) [Entitic vol] 89.4 fL Normal 80.0-100.0 [facility] Comment on above: Order Comment: Speci men Type: BLOOD SPECIMENOrdering Facility: [facility] Address: [address] [place] [address] Performed By: #### 5 7021-8 ####[facility] LABIA [id number] [place] [address] [place] Monocytes (Bld) [#/Vol] 0.51 10*3/uL Normal <0.87 [facility] Comment on above: Order Comment: Speci men Type: BLOOD SPECIMENOrdering Facility: [facility] Address: [address] [place] [address] Performed By: #### 5 7021-8 ####[facility] LABIA [id number] [place] [address] [place] Monocytes/100 WBC (Bld) 7.7 % Normal [facility] Comment on above: Order Comment: Speci men Type: BLOOD SPECIMENOrdering Facility: [facility] Address: [address] [place] [address] Performed By: #### 5 7021-8 ####[facility] LABCLIA [id number] [facility] [place] [address] [place] Neutrophils (Bld) [#/Vol] 4.30 10*3/uL Normal 1.45-7.50 [facility] Comment on above: Order Comment: Speci men Type: BLOOD SPECIMENOrdering Facility: [facility] Address: [address] [place] [address] Performed By: #### 5 7021-8 ####[facility] LABCLIA [id number] [place] [address] [place] Neutrophils/100 WBC (Bld) 64.7 % Normal [facility] Comment on above: Order Comment: Speci men Type: BLOOD SPECIMENOrdering Facility: [facility] Address: [address] [place] [address] Performed By: #### 5 7021-8 ####[facility] LABCLIA [id number] [facility] [place] [address] [place] Nucleated RBC (Bld) [#/Vol] 10*3/uL Normal <0.01 [facility] Comment on above: Order Comment: Speci men Type: BLOOD SPECIMENOrdering Facility: [facility] Address: [address] [place] [address] Performed By: #### 5 7021-8 ####[facility] LABCLIA [id number] [facility] [place] [address] [place] Nucleated RBC/100 WBC (Bld) [Ratio] 0.0 /100 WBC Normal [facility] Comment on above: Order Comment: Speci men Type: BLOOD SPECIMENOrdering Facility: [facility] Address: [address] [place] [address] Performed By: #### 5 7021-8 ####[facility] LABCLIA [id number] [place] [address] [place] Platelet mean volume (Bld) [Entitic vol] 10.4 fL Normal 9.0-12.7 [facility] Comment on above: Order Comment: Speci men Type: BLOOD SPECIMENOrdering Facility: [facility] Address: [address] [place] [address] Performed By: #### 5 7021-8 ####[facility] LABIA [id number] [place] [address] [place] Platelets (Bld) [#/Vol] 186 10*3/uL Normal 150-400 [facility] Comment on above: Order Comment: Speci men Type: BLOOD SPECIMENOrdering Facility: [facility] Address: [address] [place] [address] Performed By: #### 5 7021-8 ####[facility] LABIA [id number] [place] [address] [place] RBC (Bld) [#/Vol] 4.82 10*6/uL Normal 4.20-6.00 [facility] Comment on above: Order Comment: Speci men Type: BLOOD SPECIMENOrdering Facility: [facility] Address: [address] [place] [address] Performed By: #### 5 7021-8 ####[facility] LABIA [id number] [place] [address] [place] WBC (Bld) [#/Vol] 6.64 10*3/uL Normal 3.70-11.00 [facility] Comment on above: Order Comment: Speci men Type: BLOOD SPECIMENOrdering Facility: [facility] Address: [address] [place] [address] Performed By: #### 5 7021-8 ####[facility] LABIA [id number] [place] [id number] [place] CNOVon 07-16-2024 CNOV Office Visit (FAMPWS ) ----- SABRINA GILLETTE ([id number]) 1965 M Date Time Provider Department 07/16/24 2:00 PM ANGIE ANDERSON During your visit today, we recorded the following information about you: Pulse Respiration Blood pressure Weight 58/minute 16/minute 136/84 89.4 kg Height 1.766 m Angie Anderson APRN.INFORMATICS PHYSICIAN LIAISON 07/16/2024 3:16 PM Signed 07/16/2024 Patient presents with: Establish Care SUBJECTIVE: This is a 59 year old that is here today for Above Complaints. Admits to daily chest pain. Pain located left chest. Described as a nagging. No aggravating features. Doesn't take anything for pain. Denies accompanying diaphoresis, SOB, dyspnea, jaw/back pain, nausea or vomiting Reports for the last six months feels like something is blocking and he can not have a complete bowel movements. At first thought it was related to constipation. Has bowel movements daily and hasn't noticed a changes in caliber. Denies weight loss, abdominal pain, nausea, vomiting, hematochezia or melana. Normal colonoscopy in 2016. Father from colon cancer in his 80's. SUE: uses CPAP nightly Past medical, surgical, family, social hx, medications, allergies, health maintenance reviewed and updated PAST MEDICAL HISTORY Diagnosis Date Anxiety Mental disorder Obstructive sleep apnea DME [facility] Patient has no known allergies. MEDICATIONS Current Outpatient Medications Medication Sig CPAP/BIPAP/OTHER Auto CPAP 5-15 cmH2O DME [facility] No current facility-administered medications for this visit. Medications and allergies reviewed by this provider. SOCIAL HISTORY Social History Tobacco Use Smoking status: Never Smokeless tobacco: Never Substance Use Topics Alcohol use: No Drug use: No REVIEW OF SYSTEMS GENERAL: No weight loss, malaise or fevers HEENT: Negative for frequent or significant headaches, No changes in hearing or vision, no nose bleeds or other nasal problems NECK: Negative for lumps, goiter, pain and significant neck swelling RESPIRATORY: Negative for cough, hemoptysis, wheezing, COPD, dyspnea or shortness of breath CARDIOVASCULAR: See HPI GI: See HPI : No history of dysuria, frequency or incontinence MUSCULOSKELETAL: Negative for joint pain or swelling, back pain or muscle pain and pain in right hand SKIN: Negative for lesions, rash, and itching PSYCH: Negative for sleep disturbance, mood disorder and recent psychosocial stressors HEMATOLOGY/LYMPHOLOGY: Negative for prolonged bleeding, bruising easily or swollen nodes ENDOCRINE: Negative for cold or heat intolerance, polyuria, polydipsia and goiter NEURO: No history of headaches, syncope, paralysis, seizures or tremors All other reviewed and negative other than HPI. OBJECTIVE: BP 136/84 Pulse (!) 58 Resp 16 Ht 176.6 cm (5' 9.53) Wt 89.4 kg (197 lb) SpO2 97% BMI 28.65 kg/m? . Vital signs reviewed by this provider. APPEARANCE Well appearing, alert, in no acute distress, well-hydrated, well nourished. EYES conjunctiva and sclera normal. EARS External ears normal, canals clear NECK Supple, no adenopathy; thyroid symmetric, normal size, no bruits HEART RRR with normal S1 and S2, no murmurs, no gallops, no JVD appreciated LUNG clear to auscultation. No wheezes, rhonchi or rales ABDOMEN bowel sounds normoactive, no bruits, soft, non-tender, non-distended EXTREMITIES Extremities normal, No deformities, No skin discoloration, and No edema SKIN Skin color, texture, turgor normal, no suspicious rashes or lesions to exposed skin ASSESSMENT/PLAN: 1. Encounter for medical examination to establish care - ICD9: V70.9, ICD10: Z00.00 (primary diagnosis) - Counseled on healthy diet and regular exercise - Discussed need for and benefit of weight loss. BMI 28.65 kg/(m2) - Follow up for annual exam in one year - COMPREHENSIVE METABOLIC PANEL - COMPLETE BLOOD COUNT AND DIFFERENTIAL 2. Screening for hypercholesterolemia - ICD9: V77.91, ICD10: Z13.220 - LIPID PANEL, FASTING 3. Special screening examination for viral disease - ICD9: V73.99, ICD10: Z11.59 - HEPATITIS C ANTIBODY IA WITH CONFIRMATION 4. Encounter for screening examination for other mental health and behavioral disorders - ICD9: V79.8, ICD10: Z13.39 - ANXIETY SCREENING 5. Screening for HIV (human immunodeficiency virus) - ICD9: V73.89, ICD10: Z11.4 - HIV 1/2 COMBO WITH REFLEX TO DIFFERENTIATION 6. Screening for depression - ICD9: V79.0, ICD10: Z13.31 - negative screen 7. Encounter for immunization - ICD9: V03.89, ICD10: Z23 - ZOSTER VACCINE, RECOMBINANT (SHINGRIX) - ZOSTER VACCINE, RECOMBINANT (SHINGRIX) - PNEUMOCOCCAL VACCINE, 20 VALENT (PREVNAR 20) 8. Chest pain in adult - ICD9: 786.50, ICD10: R07.9 - Electrocardiogram: An ECG today showed normal sinus rhythm at 62 BPM, IL interval 166 ms, normal QRS, normal ST (more content not included)... Normal [facility] Comprehensive metabolic 2000 panelon 07-16-2024 Albumin [Mass/Vol] 4.6 g/dL Normal 3.9-4.9 [facility] Comment on above: Order Comment: Speci men Type: BLOOD SPECIMENOrdering Facility: [facility] Address: [address] [place] [address] Performed By: #### 1 9123-9, 62089-5, 74502-8 ####[facility] [id number] [place] [address] [place] ALP [Catalytic activity/Vol] 74 U/L Normal 38-113 [facility] Comment on above: Order Comment: Speci men Type: BLOOD SPECIMENOrdering Facility: [facility] Address: [address] [place] [address] Performed By: #### 1 9123-9, 63704-2, 87183-8 ####[facility] [id number] [place] [address] [place] ALT [Catalytic activity/Vol] 23 U/L Normal 10-54 [facility] Comment on above: Order Comment: Speci men Type: BLOOD SPECIMENOrdering Facility: [facility] Address: [address] [place] [address] Performed By: #### 1 9123-9, 82705-5, 60152-7 ####[facility] LABCLIA [id number] [facility] [address] [address] [place] Anion gap [Moles/Vol] 11 mmol/L Normal 8-15 [facility] Comment on above: Order Comment: Speci men Type: BLOOD SPECIMENOrdering Facility: [facility] Address: [address] [place] [address] Performed By: #### 1 9123-9, 72939-5, 52720-9 ####[facility] LABCLIA [id number] [address] [address] [place] AST [Catalytic activity/Vol] 31 U/L Normal 14-40 [facility] Comment on above: Order Comment: Speci men Type: BLOOD SPECIMENOrdering Facility: [facility] Address: [address] [place] [address] Performed By: #### 1 9123-9, 96428-2, 18756-4 ####[facility] LABCLIA [id number] [place] [address] [place] Bilirubin [Mass/Vol] 0.5 mg/dL Normal 0.2-1.3 [facility] Comment on above: Order Comment: Speci men Type: BLOOD SPECIMENOrdering Facility: [facility] Address: [address] [place] [address] Performed By: #### 1 9123-9, 44310-7, 47473-2 ####[facility] LABCLIA [id number] [facility] [address] [address] [place] Calcium [Mass/Vol] 9.3 mg/dL Normal 8.5-10.2 [facility] Comment on above: Order Comment: Speci men Type: BLOOD SPECIMENOrdering Facility: [facility] Address: [address] [place], [place] [address] Performed By: #### 1 9123-9, 13402-3, 82528-9 ####[facility] LABCLIA [id number] [place] [address] [place] Chloride [Moles/Vol] 104 mmol/L Normal 98-107 [facility] Comment on above: Order Comment: Speci men Type: BLOOD SPECIMENOrdering Facility: [facility] Address: [address] [place] [address] Performed By: #### 1 9123-9, 12346-5, 23843-0 ####[facility] LABIA [id number] [place] [address] [place] CO2 [Moles/Vol] 26 mmol/L Normal 22-30 [facility] Comment on above: Order Comment: Speci men Type: BLOOD SPECIMENOrdering Facility: [facility] Address: [address] [place] [address] Performed By: #### 1 9123-9, 99366-0, 49942-9 ####[facility] LABIA [id number] [place] [address] [place] Creatinine [Mass/Vol] 1.12 mg/dL Normal 0.73-1.22 [facility] Comment on above: Order Comment: Speci men Type: BLOOD SPECIMENOrdering Facility: [facility] Address: [address] [place] [address] Performed By: #### 1 9123-9, 16371-0, 18371-6 ####[facility] LABIA [id number] [place] [address] [place] Creatinine and Glomerular filtration rate.predicted panel (S/P/Bld) 75 mL/min/1.73m??? Normal >=60 [facility] Comment on above: Order Comment: Speci men Type: BLOOD SPECIMENOrdering Facility: [facility] Address: [address] [place] [address] Result Comment: Maricel mated Glomerular Filtration Rate (eGFR) is calculated using the 2020 CKD-EPI creatinine equation. This equation utilizes serum creatinine, sex, and age as parameters. The creatinine assay has traceable calibration to isotope dilution-mass spectrometry. Refer to KDIGO guidelines for clinical interpretation. In patients with unstable renal function, e.g. those with acute kidney injury, the eGFR may not accurately reflect actual GFR. Performed By: #### 1 9123-9, , ####[facility] LABCLIA [id number] [facility] [id number] [address] [place] Glucose [Mass/Vol] 86 mg/dL Normal 74-99 [facility] Comment on above: Order Comment: Marlen cartwright Type: BLOOD SPECIMENOrdering Facility: [facility] Address: [address] [place] [address] Result Comment: The [place] Diabetes Association (ADA) provides guidance for cutoff values for fasting glucose and random glucose. The ADA defines fasting as no caloric intake for at least 8 hours. Fasting plasma glucose results between 100 to 125 mg/dL indicate increased risk for diabetes (prediabetes). Fasting plasma glucose results greater than or equal to 126 mg/dL meet the criteria for diagnosis of diabetes. In the absence of unequivocal hyperglycemia, results should be confirmed by repeat testing. In a patient with classic symptoms of hyperglycemia or hyperglycemic crisis, random plasma glucose results greater than or equal to 200 mg/dL meet the criteria for diagnosis of diabetes. Reference: Standards of Medical Care in Diabetes 2016, [place] Diabetes Association. Diabetes Care. 2016.39(Suppl 1). Performed By: #### 1 9123-9, , ####[facility] LABCLIA [id number] [facility] [address] [address] [place] Potassium [Moles/Vol] 4.6 mmol/L Normal 3.7-5.1 [facility] Comment on above: Order Comment: Marlen cartwright Type: BLOOD SPECIMENOrdering Facility: [facility] Address: [address] [place] [address] Performed By: #### 1 [address], , ####[facility] LABCLIA [id number] [facility] [id number] [address] [place] Protein [Mass/Vol] 7.2 g/dL Normal 6.3-8.0 [facility] Comment on above: Order Comment: Speci men Type: BLOOD SPECIMENOrdering Facility: [facility] Address: [address] [place] [address] Performed By: #### 1 9123-9, 32253-9, 50171-3 ####[facility] LABIA [id number] [place] [id number] [place] Sodium [Moles/Vol] 141 mmol/L Normal 136-144 [facility] Comment on above: Order Comment: Speci men Type: BLOOD SPECIMENOrdering Facility: [facility] Address: [address] [place] [address] Performed By: #### 1 9123-9, 15954-9, 28671-1 ####[facility] LABIA [id number] [place] [address] [place] Urea nitrogen [Mass/Vol] 11 mg/dL Normal 9-24 [facility] Comment on above: Order Comment: Speci men Type: BLOOD SPECIMENOrdering Facility: [facility] Address: [address] [place] [address] Performed By: #### 1 9123-9, 27270-1, 96812-6 ####[facility] LABIA [id number] [place] [id number] [place] OLI94ib 07-16-2024 ECG01 Ventricular Rate : 6 0 BPM Atrial Rate : 60 BPM P-R Interval : 166 ms QRS Duration : 94 ms Q-T Interval : 406 ms QTC Calculation(Bazett) : 406 ms Calculated P [place] : 41 degrees Calculated R [place] : 11 degrees Calculated T [place] : 6 degrees NORMAL SINUS RHYTHM NORMAL ECG Confirmed by MD ISRAEL, QARAB ([id number]) on 07/17/2024 11:58:23 AM NAME : SABRINA GILLETTE PID : [id number] : 1965 Gender : Male Race : ORD : Procedure Date : Jul 16 2024 14:24:22 Edit Date : Jul 17 2024 11:58:28 Diagnosis: NORMAL SINUS RHYTHM NORMAL ECG Confirmed by MD ISRAEL, DARCY ([id number]) on 07/17/2024 11:58:23 AM Test Reason : Location : 136 : [place] Overread By : MD WOOD QARAB Edited By : MD WOOD QARAB Referred By : ANGIE ANDERSON Acquired by : [id number], Normal [facility] Lipid 1996 panelon 5 Cholesterol [Mass/Vol] 180 mg/dL Normal <200 [facility] Comment on above: Order Comment: Speci men Type: BLOOD SPECIMENOrdering Facility: [facility] Address: [address] [place] [address] Result Comment: <200 mg/dL, Desirable 200-239 mg/dL, Borderline high >239 mg/dL, High Performed By: #### 1 9123-9, 52527-5, 78407-1 ####[facility] LABCLIA [id number] [address] [place] Cholesterol in HDL [Mass/Vol] 51 mg/dL Normal >39 [facility] Comment on above: Order Comment: Speci men Type: BLOOD SPECIMENOrdering Facility: [facility] Address: [address] [place] [address] Result Comment: 40-5 9 mg/dL, Acceptable >59 mg/dL, High: Negative risk factor for coronary heart disease <40 mg/dL, Low: Positive risk factor for coronary heart disease Performed By: #### 1 9123-9, 61656-9, 01641-1 ####[facility] LABCLIA [id number] [address] [address] [place] Cholesterol in LDL [Mass/Vol] 118 mg/dL High <100 [facility] Comment on above: Order Comment: Speci men Type: BLOOD SPECIMENOrdering Facility: [facility] Address: [address] [place] [address] Result Comment: <100 mg/dL, Optimal 100-129 mg/dL, Near optimal/above optimal 130-159 mg/dL, Borderline high 160-189 mg/dL, High >189 mg/dL, Very high Secondary prevention optimal LDL Cholesterol levels are recommended to be <70 mg/dL LDL cholesterol is calculated using the Oakes-NIH equation. Performed By: #### 1 9123-9, 84846-2, 04609-9 ####[facility] LABCLIA [id number] [address] [address] [place] Cholesterol in LDL/Cholesterol in HDL [Mass ratio] 2.31 {ratio} Normal <2.54 [facility] Comment on above: Order Comment: Speci men Type: BLOOD SPECIMENOrdering Facility: [facility] Address: [address] [place] [address] Result Comment: Refe rence: 1. National Cholesterol Education Program ATP III Guideline At-A-Glance Quick Desk Reference: National Heart, Lung, and Blood [place]. National Institutes of Health. 2001: NIH Publication No. 01-3305. 2. An International Atherosclerosis Society position paper: global recommendations for the management of dyslipidemia: executive summary, Atherosclerosis. 2014: 232(2):410-413. Performed By: #### 1 9123-9, 51620-3, 49253-8 ####[facility] LABIA [id number] [place] [address] [place] Cholesterol in VLDL [Mass/Vol] 10 mg/dL Normal <30 [facility] Comment on above: Order Comment: Speci men Type: BLOOD SPECIMENOrdering Facility: [facility] Address: [address] [place] [address] Performed By: #### 1 9123-9, 58637-9, ####[facility] LABIA [id number] [address] [address] [place] Cholesterol non HDL [Mass/Vol] 129 mg/dL Normal <130 [facility] Comment on above: Order Comment: Speci men Type: BLOOD SPECIMENOrdering Facility: [facility] Address: [address] [place] [address] Result Comment: <130 mg/dL, Optimal 130-159 mg/dL, Near optimal/above optimal 160-189 mg/dL, Borderline high 190-219 mg/dL, High >219 mg/dL, Very high Secondary prevention optimal non HDL Cholesterol levels are recommended to be <100 mg/dL Performed By: #### 1 9123-9, 67074-6, 72081-1 ####[facility] LABCLIA [id number] [facility] [address] [place] [address] [place] Cholesterol.total/ Cholesterol in HDL [Mass ratio] 3.53 {ratio} Normal <5.10 [facility] Comment on above: Order Comment: Speci men Type: BLOOD SPECIMENOrdering Facility: [facility] Address: [address] [place] [address] Performed By: #### 1 9123-9, , ####[facility] LABCLIA [id number] [address] [address] [place] FASTING TIME 12 hrs Normal [facility] Comment on above: Order Comment: Speci men Type: BLOOD SPECIMENOrdering Facility: [facility] Address: [address] [place] [address] Performed By: #### 1 9123-9, , ####[facility] LABCLIA [id number] [address] [place] [address] [place] Triglyceride [Mass/Vol] 59 mg/dL Normal <150 [facility] Comment on above: Order Comment: Speci men Type: BLOOD SPECIMENOrdering Facility: [facility] Address: [address] [place] [id number] Result Comment: <150 mg/dL, Normal 150-199 mg/dL, Borderline high 200-499 mg/dL, High >499 mg/dL, Very high Performed By: #### 1 9123-9, , ####[facility] LABCLIA [id number] [address] [place] [address] [place] Magnesium SerPl-mCncon 07-16 Magnesium [Mass/Vol] 2.1 mg/dL Normal 1.7-2.3 [facility] Comment on above: Order Comment: Speci men Type: BLOOD SPECIMENOrdering Facility: [facility] Address: [address] [place] [address] Performed By: #### 1 9123-9, 03991-9, 55392-4 ####[facility] LABCLIA [id number] [facility] [place] [address] [place] XR CHEST 2V FRONTAL/LATon XR CHEST 2V FRONTAL/LAT * * *Final Report* * * DATE OF EXAM: Jul 16 2024 3:26PM WOX [id number] - XR CHEST 2V FRONTAL/LAT / PROCEDURE REASON: Chest pain in adult * * * * Physician Interpretation * * * * EXAMINATION: CHEST RADIOGRAPH (2 VIEW FRONTAL and LATERAL) CLINICAL HISTORY: Chest pain in adult MQ: XC2_6 EXAM DATE/TIME: 07/16/2024 3:26 PM COMPARISON: 07/05/2022 RESULT: Lines, tubes, and devices: None. Lungs and pleura: No consolidation. No lung mass. No pleural effusion. No pneumothorax. Cardiomediastinal silhouette: Normal cardiomediastinal silhouette. Bones and soft tissues: Unremarkable. IMPRESSION: No acute radiographic abnormality. Cigar Making Supervisor: KACIE Transcribe Date/Time: Jul 17 2024 3:11P Dictated by : MARILIA DEMARCO MD This examination was interpreted and the report reviewed and electronically signed by: MARILIA DEMARCO MD on Jul 17 2024 3:34PM EST [id number] Normal [facility] [place] 12-26-2023 CNPN Telephone (ShareYourCartWST) ----- SABRINA GILLETTE ([id number]) 1965 M Date Time Provider Department 12/26/23 KAY ACEVES During your visit today, we recorded the following information about you: Sheela Kilgore LPN 12/26/2023 1:45 PM Signed Apryl is requesting a new order for a CPAP and an addendum to office note stating machine is broken, is over 7 years old, and not transmitting. SHARMAINE Parnell Rebecca, APRN.NATALIA 12/26/2023 2:55 PM Signed Done SUJATA Bartno Jessica, LPN 12/26/2023 5:08 PM Signed Orders faxed. 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 Notes faxed as requested to [phone]. Glenis Viera LPN Allergies As of Date: 12/14/2023 (No Known Allergies) Date Reviewed: 07/05/2022 Reviewed by: Chio Lovelace MA - Fully Assessed Reason for Visit: OV Notes [Other] Prescriptions as of 12/14/2023 - CPAP autoPAP 5-15 cmH2O, mask, tubing, filters, heated humidity, lifetime supplies. 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] 03/18/2005 Neck Pain [M54.2] 06/09/2009 Colon cancer screening [Z12.11] 08/22/2015 08/22/2015 SUE (obstructive sleep apnea) [G47.33] 04/06/2016 Encounter Status:Closed by GLENIS VIERA on 12/14/23 [facility] [place] 12-13-2023 KULWINDER Telephone (SLEWST) ----- SABRINA GILLETTE ([id number]) 1965 M Date Time Provider Department 12/13/23 KAY ACEVES During your visit today, we recorded the following information about you: Kya Aceves APRN.NATALIA 12/13/2023 3:18 PM Signed Order for PAP supplies to [facility] please Kay Aceves APRN.Sheela Cano LPN 12/13/2023 3:33 PM Signed Orders faxed. Sheela [place], [employer] Allergies As of Date: 12/13/2023 (No Known Allergies) Date Reviewed: 07/05/2022 Reviewed by: Chio Lovelace MA - Fully Assessed Reason for Visit: Orders [681] Prescriptions as of 12/13/2023 - CPAP autoPAP 5-15 cmH2O, mask, tubing, filters, heated humidity, lifetime supplies. 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 CPAP Rx unsigned as patient has not been seen since July 2019. Patient contacted to schedule appointment. Allergies As of Date: 11/07/2023 (No Known Allergies) Date Reviewed: 07/05/2022 Reviewed by: Chio Lovelace MA - Fully Assessed Reason for Visit: Orders [681] Cmt: Faxed e-signed office note back to [facility]. CPAP Rx unsigned as patient has not been seen since July 2019. Patient contacted to schedule appointment. Prescriptions as of 11/07/2023 - CPAP autoPAP 5-15 cmH2O, mask, tubing, filters, heated humidity, lifetime supplies. 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 Most recent e-signed office note included. Placed on ShareWithU for signature and review. Allergies As of Date: 10/28/2023 (No Known Allergies) Date Reviewed: 07/05/2022 Reviewed by: Chio Lovelace MA - Fully Assessed Reason for Visit: Orders [681] Cmt: Received faxed CPAP Rx from [facility] at [facility]. Most recent e-signed office note included. Placed on Status4 desEgully for signature and review. Prescriptions as of 10/28/2023 - CPAP autoPAP 5-15 cmH2O, mask, tubing, filters, heated humidity, lifetime supplies. 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 Cigar Making Supervisor: KACIE Transcribe Date/Time: Jul 05 2022 2:04P Dictated by : ASHELY LINDA MD This examination was interpreted and the report reviewed and electronically signed by: ASHELY LINDA MD on Jul 05 2022 2:06PM EST DIVISION OF RADIOLOGY * * *Final Report* * * DATE OF EXAM: Jul 05 2022 1:48PM WOX [id number] - XR RIB/CHST 3V AP RIB/OBL/CHST R / PROCEDURE REASON: Acute right-sided thoracic back pain * * * * Physician Interpretation * * * * TITLE: XR RIB/CHST 3V AP RIB/OBL/CHST R CLINICAL INDICATION: Acute right-sided pain TECHNIQUE: 3 view right sided radiographic rib series with inclusion of a single frontal view of the chest for purposes of comparison/symmetry COMPARISON: None FINDINGS: No radiographic evidence of acute displaced right rib fracture. Normal cardiomediastinal silhouette. No focal consolidation. No discernible pleural effusion or pneumothorax. DIVISION OF RADIOLOGY Provider, Sara Dominic Felder - 07/05/2022 * * *Final Report* * * DATE OF EXAM: Jul 05 2022 1:48PM WOX [id number] - XR RIB/CHST 3V AP RIB/OBL/CHST R / PROCEDURE REASON: Acute right-sided thoracic back pain * * * * Physician Interpretation * * * * TITLE: XR RIB/CHST 3V AP RIB/OBL/CHST R CLINICAL INDICATION: Acute right-sided pain TECHNIQUE: 3 view right sided radiographic rib series with inclusion of a single frontal view of the chest for purposes of comparison/symmetry COMPARISON: None FINDINGS: No radiographic evidence of acute displaced right rib fracture. Normal cardiomediastinal silhouette. No focal consolidation. No discernible pleural effusion or pneumothorax. IMPRESSION IMPRESSION: No radiographic evidence of acute displaced right rib fracture. Cigar Making Supervisor: PSCB Transcribe Date/Time: Jul 05 2022 2:04P Dictated by : ASHELY LINDA MD This examination was interpreted and the report reviewed and electronically signed by: ASHELY LINDA MD on Jul 05 2022 2:06PM EST [facility] XR Ribs - right Views and Ch est PAOrdered By: Ccf Provider on 07-05-2022 [facility] XR Thoracic spine AP and Lat eral and [place] 07-05-2022 IMPRESSION: Multilevel degenerative changes. Cigar Making Supervisor: [employer] Transcribe Date/Time: Jul 05 2022 2:06P Dictated by : ASHELY LINDA MD This examination was interpreted and the report reviewed and electronically signed by: ASHELY LINDA MD on Jul 05 2022 2:08PM EST DIVISION OF RADIOLOGY * * *Final Report* * * DATE OF EXAM: Jul 05 2022 1:48PM WOX [id number] - XR THORACIC 3V AP/LAT/SWIMMERS / PROCEDURE REASON: Acute right-sided thoracic back pain * * * * Physician Interpretation * * * * TITLE: XR THORACIC 3V AP/LAT/SWIMMERS CLINICAL INDICATION: Acute right-sided pain TECHNIQUE: 3 view radiographic study of the thoracic spine COMPARISON: None FINDINGS: Preservation of visualized vertebral body heights. Pedicles appear grossly intact. Multilevel degenerative changes with [id number]-[id number] joint space narrowing and marginal osteophyte formation which appears most pronounced in the mid thoracic spine. DIVISION OF RADIOLOGY Provider, [facility] - 07/05/2022 * * *Final Report* * * DATE OF EXAM: Jul 05 2022 1:48PM WOX 5261 - XR THORACIC 3V AP/LAT/SWIMMERS / PROCEDURE REASON: Acute right-sided thoracic back pain * * * * Physician Interpretation * * * * TITLE: XR THORACIC 3V AP/LAT/SWIMMERS CLINICAL INDICATION: Acute right-sided pain TECHNIQUE: 3 view radiographic study of the thoracic spine COMPARISON: None FINDINGS: Preservation of visualized vertebral body heights. Pedicles appear grossly intact. Multilevel degenerative changes with jrwn-ch-bjqqwbxd joint space narrowing and marginal osteophyte formation which appears most pronounced in the mid thoracic spine. IMPRESSION IMPRESSION: Multilevel degenerative changes. Cigar Making Supervisor: PSCB Transcribe Date/Time: Jul 05 2022 2:06P Dictated by : ASHELY LINDA MD This examination was interpreted and the report reviewed and electronically signed by: ASHELY LINDA MD on Jul 05 2022 2:08PM [facility] Vital Signs Date Time Vital Sign Value Performing Clinician Facility 10-11-2024 14:34-0400 Body height 180.[address] Jeet Monge MD Work Phone: [facility] 10-11-2024 14:34-0400 Body mass index (BMI) [Ratio] 34.8 kg/m2 Dr. Jeet Monge MD Work Phone: [facility] 10-11-2024 14:34-0400 Body temperature 97.8 [degF] Dr. Jeet Monge MD Work Phone: [facility] 10-11-2024 14:34-0400 Body weight 113.[address] Jeet Monge MD Work Phone: [facility] 10-11-2024 14:34-0400 Diastolic blood pressure 81 mm[Hg] Dr. Jeet Monge MD Work Phone: [facility] 10-11-2024 14:34-0400 Heart rate 51 /min Dr. Jeet Monge MD Work Phone: [facility] 10-11-2024 14:34-0400 Respiratory rate 18 /min Dr. Jeet Monge MD Work Phone: [facility] 10-11-2024 14:34-0400 SaO2% (BldA) [Mass fraction] 96 % Dr. Jeet Monge MD Work Phone: [facility] 10-11-2024 14:34-0400 Systolic blood pressure 139 mm[Hg] Dr. Jeet Monge MD Work Phone: [facility] 09-28-2024 09:49-0400 Diastolic blood pressure 98 mm[Hg] Herminio Webber MD Work Phone: [facility] 09-28-2024 09:49-0400 Heart rate 65 /min Herminio Webber MD Work Phone: [facility] 09-28-2024 09:49-0400 Respiratory rate 16 /min Herminio Webber MD Work Phone: [facility] 09-28-2024 09:49-0400 SaO2% (BldA) [Mass fraction] 98 % Herminio Webber MD Work Phone: [facility] 09-28-2024 09:49-0400 Systolic blood pressure 150 mm[Hg] Herminio Webber MD Work Phone: [facility] 09-28-2024 08:07-0400 Body mass index (BMI) [Ratio] 28.5 kg/m2 Herminio Webber MD Work Phone: [facility] 09-28-2024 08:07-0400 Body temperature 96.69 [degF] Herminio Webber MD Work Phone: [facility] 09-28-2024 08:07-0400 Body weight 88.9 kg Herminio Webber MD Work Phone: [facility] 07-27-2024 14:19-0400 Body mass index (BMI) [Ratio] 28.51 kg/m2 Renetta Haim STORE OPERATIONS ASSOCIATE.INFORMATICS PHYSICIAN LIAISON Work Phone: [facility] 07-27-2024 14:19-0400 Body weight 88.91 kg Renetta Haim STORE OPERATIONS ASSOCIATE.INFORMATICS PHYSICIAN LIAISON Work Phone: [facility] 07-27-2024 14:19-0400 Diastolic blood pressure 85 mm[Hg] Renetta Haim STORE OPERATIONS ASSOCIATE.INFORMATICS PHYSICIAN LIAISON Work Phone: [facility] 07-27-2024 14:19-0400 Heart rate 60 /min Renetta Haim STORE OPERATIONS ASSOCIATE.INFORMATICS PHYSICIAN LIAISON Work Phone: [facility] 07-27-2024 14:19-0400 Respiratory rate 14 /min Renetta Haim STORE OPERATIONS ASSOCIATE.INFORMATICS PHYSICIAN LIAISON Work Phone: [facility] 07-27-2024 14:19-0400 SaO2% (BldA) [Mass fraction] 96 % Renetta Haim STORE OPERATIONS ASSOCIATE.INFORMATICS PHYSICIAN LIAISON Work Phone: [facility] 07-27-2024 14:19-0400 Systolic blood pressure 136 mm[Hg] Renetta Haim STORE OPERATIONS ASSOCIATE.INFORMATICS PHYSICIAN LIAISON Work Phone: [facility] 07-16-2024 14:46-0400 Diastolic blood pressure 84 mm[Hg] Angie Podlogar STORE OPERATIONS ASSOCIATE.INFORMATICS PHYSICIAN LIAISON Work Phone: [facility] Comment on above: IGLESIA BP average 07-16-2024 14:46-0400 Heart rate 58 /min Angie Podlogar STORE OPERATIONS ASSOCIATE.INFORMATICS PHYSICIAN LIAISON Work Phone: [facility] 07-16-2024 14:46-0400 Systolic blood pressure 136 mm[Hg] Angie Podlogar STORE OPERATIONS ASSOCIATE.INFORMATICS PHYSICIAN LIAISON Work Phone: [facility] Comment on above: IGLESIA BP average 07-16-2024 13:48-0400 Body height 176.6 cm Angie Podlogar STORE OPERATIONS ASSOCIATE.INFORMATICS PHYSICIAN LIAISON Work Phone: [facility] 07-16-2024 13:48-0400 Body mass index (BMI) [Ratio] 28.65 kg/m2 Angie Podlogar STORE OPERATIONS ASSOCIATE.INFORMATICS PHYSICIAN LIAISON Work Phone: [facility] 07-16-2024 13:48-0400 Body weight 89.36 kg Angie Podlogar STORE OPERATIONS ASSOCIATE.INFORMATICS PHYSICIAN LIAISON Work Phone: [facility] 07-16-2024 13:48-0400 Respiratory rate 16 /min Angie Podlogar STORE OPERATIONS ASSOCIATE.INFORMATICS PHYSICIAN LIAISON Work Phone: [facility] 07-16-2024 13:48-0400 SaO2% (BldA) [Mass fraction] 97 % Angie Anderson STORE OPERATIONS ASSOCIATE.INFORMATICS PHYSICIAN LIAISON Work Phone: [facility] 07-05-2022 13:21-0400 Body temperature 95.59 [degF] Carmela Athy PA-C Work Phone: [facility] 07-05-2022 13:21-0400 Body weight 89.63 kg Carmela Athy PA-C Work Phone: [facility] 07-05-2022 13:21-0400 Diastolic blood pressure 80 mm[Hg] Carmela Athy PA-C Work Phone: [facility] 07-05-2022 13:21-0400 Heart rate 61 /min Carmela Athy PA-C Work Phone: [facility] 07-05-2022 13:21-0400 Respiratory rate 21 /min Carmela Athy PA-C Work Phone: [facility] 07-05-2022 13:21-0400 SaO2% (BldA) [Mass fraction] 98 % Carmela Athy PA-C Work Phone: [facility] 07-05-2022 13:21-0400 Systolic blood pressure 124 mm[Hg] Carmela Athy PA-C Work Phone: [facility] 02-02-2022 09:31-0500 Body temperature 102.4 [degF] Georgette Praisler-Wood STORE OPERATIONS ASSOCIATE.INFORMATICS PHYSICIAN LIAISON Work Phone: [facility] 02-02-2022 09:31-0500 Body weight 88.91 kg Georgette Praisler-Wood STORE OPERATIONS ASSOCIATE.INFORMATICS PHYSICIAN LIAISON Work Phone: [facility] 02-02-2022 09:31-0500 Diastolic blood pressure 72 mm[Hg] Georgette Praisler-Wood STORE OPERATIONS ASSOCIATE.INFORMATICS PHYSICIAN LIAISON Work Phone: [facility] 02-02-2022 09:31-0500 Heart rate 94 /min Georgette Praisler-Wood STORE OPERATIONS ASSOCIATE.INFORMATICS PHYSICIAN LIAISON Work Phone: [facility] 02-02-2022 09:31-0500 Respiratory rate 18 /min Georgette Aditi STORE OPERATIONS ASSOCIATE.INFORMATICS PHYSICIAN LIAISON Work Phone: [facility] 02-02-2022 09:31-0500 SaO2% (BldA) [Mass fraction] 98 % Georgette GuidoSagrario STORE OPERATIONS ASSOCIATE.INFORMATICS PHYSICIAN LIAISON Work Phone: [facility] 02-02-2022 09:31-0500 Systolic blood pressure 132 mm[Hg] Georgette Aditi STORE OPERATIONS ASSOCIATE.INFORMATICS PHYSICIAN LIAISON Work Phone: [facility] Encounters Encounter Date Encounter Type Care Provider Facility Start: 10-31-2024 ambulatory [facility] Facility:[facility] Start: 10-11-2024 End: 10-11-[address] Jeet Monge MD -[facility] Work Phone: Start: 10-11-2024 End: 10-11-2024 ambulatory No Primary Care Physician -[facility] Start: 10-11-2024 End: 10-11-2024 ambulatory [facility] Facility:[facility] Start: 09-28-2024 ambulatory HERMINIO WEBBER Facili ty:[facility] Start: 09-28-2024 End: 09-28-2024 Subsequent hospital visit by physician Herminio Webber MD Work Phone: Ambulatory Surgery Comment on above: Screen for colon can cer [Z12.11] Start: 09-21-2024 End: 09-21-2024 Admission to same day surgery center Herminio Webber MD Work Phone: Ambulatory Surgery Comment on above: bowel prep instructi ons Start: 09-21-2024 End: 09-21-2024 E-mail encounter from caregiver Herminio Webber MD Work Phone: Ambulatory Surgery Start: 07-31-2024 ambulatory GENIA Morocho acility:[facility] Start: 07-30-2024 End: 07-30-2024 Telephone encounter Cassie Whyte RN Cardiology Lab Comment on above: Reminder Call Start: 07-27-2024 End: 07-27-2024 Patient encounter procedure Renetta Whitmore INFORMATICS PHYSICIAN LIAISON Work Phone: General Surgery Comment on above: Family history of co xenia cancer (Primary Dx); Change in bowel habits; Personal history of colon polyps, unspecified Start: 07-27-2024 End: 07-27-2024 ambulatory RENETTA WHITMORE Facility:[facility] Start: 07-18-2024 End: 07-18-2024 Follow-up encounter Deya Armas LPN [facility] [place] Start: 07-16-2024 End: 07-16-2024 Subsequent hospital visit by physician Xr [facility] [place] Work Phone: Radiology Comment on above: Chest pain in adult [R07.9] Start: 07-16-2024 End: 07-16-2024 ambulatory ANGIE PODLOGFELIX Facility:[facility] Start: 07-16-2024 End: 07-16-2024 Patient encounter procedure Angie Anderson APRN.INFORMATICS PHYSICIAN LIAISON Work Phone: Family [facility] [place] Comment on above: Encounter for medica l examination to establish care (Primary Dx); Screening for hypercholesterolemia; Special screening examination for viral disease; Encounter for screening examination for other mental health and behavioral disorders; Screening for HIV (human immunodeficiency virus); Screening for depression; Encounter for immunization; Chest pain in adult; Change in bowel habits; SUE (obstructive sleep apnea) Start: 07-16-2024 End: 07-16-2024 Patient encounter status Angie Anderson APRN.CNP Work Phone: [facility] Start: 07-16-2024 End: 07-16-2024 ambulatory ANGIE PODLOGFELIX Facility:[facility] Start: 07-16-2024 Encounter for genera l adult medical examination without abnormal findings ANGIE CONTRERASLOGFELIX [facility] Start: 12-26-2023 End: 12-26-2023 Telephone encounter Kay Aceves APRN.CNP Work Phone: Neurology Start: 12-14-2023 End: 12-14-2023 Telephone encounter Antionette Rodney PA-C Work Phone: [facility] [place] Comment on above: OV Notes Start: 12-13-2023 End: 12-13-2023 ambulatory Kay Aceves STORE OPERATIONS ASSOCIATE.INFORMATICS PHYSICIAN LIAISON Work Phone: Neurology Comment on above: SUE on CPAP (Primary Dx) Start: 12-13-2023 End: 12-13-2023 Telemedicine consultation with patient Kay Aceves APRN.INFORMATICS PHYSICIAN LIAISON Work Phone: Neurology Start: 12-13-2023 End: 12-13-2023 Telephone encounter Kay Aceves NATE.INFORMATICS PHYSICIAN LIAISON Work Phone: Neurology Comment on above: Orders Start: 11-07-2023 End: 11-07-2023 Telephone encounter Jos Lutz APRN.NATALIA Work Phone: Neurology Comment on above: Orders (Faxed e-sign ed office note back to [facility]. CPAP Rx unsigned as patient has not been seen since July 2019. Patient contacted to schedule appointment./) Start: 10-28-2023 Telephone encounter Jos Cedillo APRN.NATALIA Work Phone: Neurology Comment on above: Orders (Received fax ed CPAP Rx from Mamta at [facility]. Most recent e-signed office note included. Placed on Jos's desk for signature and review. /) Start: 09-06-2023 Telephone encounter Jos Cedillo APRN.NATALIA Work Phone: Neurology Comment on above: Orders (Received fax from Mamta at [facility] requesting signed office note and a signature on the CMN. Requests faxed to Sleep Medicine at [facility], per provider request. /) Start: 07-05-2022 Telephone encounter Carmela carmen PA-C [facility] Comment on above: Results Start: 07-05-2022 End: 07-05-2022 Subsequent hospital visit by physician Aura [facility] [place] Work Phone: Radiology Comment on above: Acute right-sided th oracic back pain [M54.6] Start: 07-05-2022 End: 07-05-2022 Patient encounter procedure Carmela Forbes PA-C Work Phone: [facility] Comment on above: Acute right-sided th oracic back pain (Primary Dx) Start: 02-02-2022 Telephone encounter Georgette Brooke APRN.INFORMATICS PHYSICIAN LIAISON Work Phone: [facility] Comment on above: Results Start: 02-02-2022 End: 02-02-2022 Patient encounter procedure Georgettemira Pennington APRN.INFORMATICS PHYSICIAN LIAISON Work Phone: [facility] Comment on above: Viral URI with cough (Primary Dx); Flu-like symptoms Start: 10-14-2021 Telephone encounter Jos Cedillo APRN.INFORMATICS PHYSICIAN LIAISON Work Phone: Neurology Comment on above: CMN-- PAP supplies ( [employer]) Procedures Date Procedure Procedure Detail Performing Clinician Start: 10-11-2024 Plain X-ray of finger N o Primary Care Physician Start: 09-28-2024 Colonoscopy flx dx w /collj spec when pfrmd Renetta Whitmore APRN.INFORMATICS PHYSICIAN LIAISON Work Phone: Start: 09-28-2024 Colonoscopy Herminio leavitt MD Work Phone: Start: 07-16-2024 Adult depression scr eening assessment Renetta Whitmore APRN.INFORMATICS PHYSICIAN LIAISON Work Phone: Start: 07-16-2024 Lipid 1996 panel - S rhonda or Plasma Deya Armas LPN Start: 07-05-2022 Radex ribs uni w/posteroant ch minimum 3 views Carmeal Forbes PA-C Work Phone: Start: 08-22-2015 Colonoscopy Jos Cedillo STORE OPERATIONS ASSOCIATE.INFORMATICS PHYSICIAN LIAISON Work Phone: Start: 07-14-2015 Lipid 1996 panel - S rhonda or Plasma Jos Lutz APRN.INFORMATICS PHYSICIAN LIAISON Work Phone: Plan of Treatment Date Care Activity Detail Author Start: 05-17-2039 RSV Vaccine (1 - 1-d ose 75+ series) RSV Vaccine (1 - 1-dose 75+ series) [facility] Start: 09-28-2034 Screening for malign ant neoplasm of colon [facility] Start: 07-16-2029 Lipid panel Lipid Screening [facility] Start: 07-17-2027 Diabetes Screening Diabetes Screenin g [facility] Start: 08-21-2025 Colonoscopy COLONOSCOPY [facility] Start: 08-21-2025 COLORECTAL CANCER SCREENING COLORECTAL CANCER SCREENING [facility] Start: 08-21-2025 Screening for malign ant neoplasm of colon [facility] Start: 07-16-2025 Anxiety Screening Anxiety Screening [facility] Start: 07-16-2025 Depression Screening Depression Scre ening [facility] Start: 07-16-2025 End: 07-16-2025 Patient encounter procedure 07/16/2025 1:40 PM EDT Office Visit [facility] [address] [place] [address] Genia Hernández MD [address] [place] [address] Annual Exam [facility] [place] Comment on above: Annual Exam Start: 11-16-2024 End: 11-16-2024 Nursing evaluation of patient and report 11/16/2024 1:30 PM EDT Nurse Visit [facility] [address] [place] [address] Nurse, [place] [address] [place] [address] Shingrix #2 [facility] [place] Comment on above: Shingrix #2 Start: 11-12-2024 Influenza vaccination [facility] Start: 10-08-2024 End: 10-08-2024 Nursing evaluation of patient and report 10/08/2024 3:40 PM EDT Nurse Visit Cardiology [address] [place] [address] [facility], Nurse Card [address] [place] [address] Dx: Chest pain in adult [R07.9] Cardiology Comment on above: Dx: Chest pain in ad ult [R07.9] Start: 09-28-2024 End: 09-28-2024 Patient encounter procedure 09/28/2024 10:15 AM EDT Appointment Ambulatory Surgery [address] [place] [address] Herminio Webber MD [address] [facility] [address] Ambulatory Surgery Start: 09-14-2024 Hzv zoster vacc recombinant adjuvanted im njx ZOSTER VACCINE, RECOMBINANT (SHINGRIX) Immunization/Injection Routine Encounter for immunization Expected: 09/14/2024 [facility] Comment on above: Expected: 09/14/2024 Start: 09-10-2024 Shingrix Vaccine (2 of 2) Shingrix Vaccine (2 of 2) [facility] Start: 07-31-2024 End: 07-31-2024 Patient encounter procedure 07/31/2024 12:00 PM EDT Appointment Cardiology Lab [address] [place] [address] Dx: Chest pain in adult [R07.9] Cardiology Lab Comment on above: Dx: Chest pain in ad ult [R07.9] Start: 07-31-2024 Subsequent hospital visit by physician 07/31/2024 12:00 PM EDT Hospital Encounter Cardiology Lab [address] [place] [address] Chest pain in adult [R07.9] Cardiology Lab Comment on above: Chest pain in adult [R07.9] Start: 07-23-2024 End: 07-23-2024 Patient encounter procedure 07/23/2024 2:00 PM EDT Office Visit General Surgery [address] [facility] [address] Renetta Whitmore, NATE.INFORMATICS PHYSICIAN LIAISON [address] [facility] [facility] [address] Dx: Change in bowel habits [R19.4] General Surgery Comment on above: Dx: Change in bowel habits [R19.4] Start: 07-16-2024 End: 10-15-2024 Comprehensive metabolic 2000 panel - Serum or Plasma [facility] Comment on above: Expected: 07/16/2024 , Expires: 10/15/2024 Start: 07-16-2024 End: 10-15-2024 Lipid 1996 panel - Serum or Plasma [facility] Work Phone: Comment on above: Expected: 07/16/2024 , Expires: 10/15/2024 Start: 07-16-2024 End: 10-15-2024 Magnesium [Mass/volume] in Serum or Plasma [facility] Comment on above: Expected: 07/16/2024 , Expires: 10/15/2024 Start: 01-30-2024 End: 01-30-2024 Patient encounter procedure 01/30/2024 1:00 PM EST Office Visit [facility] [place] [address] [place], [place] [id number] Angie Anderson APRN.INFORMATICS PHYSICIAN LIAISON [address] [place], [place] [id number] est care physical [facility] [place] Comment on above: est care physical Start: 01-10-2024 End: 01-10-2024 Follow-up encounter 01/10/2024 3:00 PM EDT [facility] [address] [place] [address] Kay Aceves, NATE.INFORMATICS PHYSICIAN LIAISON [address] [place] [address] SUE follow up (last OV 08/02/2019) Neurology Comment on above: SUE follow up (last OV 08/02/2019) Start: 11-13-2023 Covid-19 Vaccine ( season) Covid-19 Vaccine ( season) [facility] Start: 11-13-2023 Covid-19 Vaccine ( season) Covid-19 Vaccine ( season) [facility] Start: 11-13-2023 Influenza vaccination [facility] Start: 03-14-2023 Behavioral Health Screening Behavioral Health Screening [facility] Start: 11-12-2022 Covid-19 Vaccine ( season) Covid-19 Vaccine ( season) [facility] Start: 11-12-2022 Influenza vaccination INFLUENZ A (Season Ended) [facility] Start: 03-14-2022 DEPRESSION ASSESSMENT [facility] Start: 02-02-2022 End: 02-16-2022 Influenza virus A and B RNA and SARS-CoV-2 (COVID-19) N gene panel - Respiratory specimen by HUBER with probe detection COVID WITH FLUA+B, ROUTINE Microbiology Routine Viral URI with cough Expected: 02/02/2022, Expires: 02/16/2022 [facility] Work Phone: Comment on above: Expected: 02/02/2022 , Expires: 02/16/2022 Start: 11-12-2021 Influenza vaccination INFLUENZA (#1) [facility] Start: 03-14-2021 DEPRESSION ASSESSMENT DEPRESSION ASS [facility] Start: 07-13-2020 Lipid panel Lipid Screening [facility] Start: 07-13-2020 LIPID SCREEN LIPID SCREEN [facility] Start: 05-17-2019 PROSTATE CANCER SCREENING DISCUSSION PROSTATE CANCER SCREENING DISCUSSION [facility] Start: 05-17-2019 Prostate specific antigen measurement Prostate Cancer Screening Discussion [facility] Start: 09-10-2018 Urine microalbumin profile [facility] Start: 07-13-2018 DIABETES SCREEN DIABETES SCREEN [facility] Start: 07-13-2018 Diabetes Screening Diabetes Screenin g [facility] Start: 07-20-2016 FECAL OCCULT BLOOD FECAL OCCULT BLOO D [facility] Start: 07-20-2016 Screening for malign ant neoplasm of colon Fecal Occult Blood [facility] Start: 2014 SHINGRIX VACCINE (1 of 2) SHINGRIX VACCINE (1 of 2) [facility] Start: 2009 COLOGUARD (FIT-DNA) COLOGUARD (FIT-D NA) [facility] Start: [address] COLONOGRAPHY [facility] Start: 2009 Prostate specific antigen measurement Prostate Cancer Screening Discussion [facility] Start: 2009 Screening for malign ant neoplasm of colon [facility] Start: 2009 SIGMOIDOSCOPY SIGMOIDOSCOPY [facility] Start: 1982 Anxiety Screening Anxiety Screening [facility] Start: 1982 Depression Screening Depression Scre ening [facility] Start: 1982 HEPATITIS C SCREENING HEPATITIS C SC REENING [facility] Start: 1982 Hepatitis C screening Hepatitis C Sc gwen [facility] Start: 1982 HIV SCREENING HIV SCREENING [facility] Start: 1982 HIV screening HIV Screening [facility] Start: 1976 Adult depression screening assessment DEPRESSION SCREENING [facility] Start: 1964 COVID-19 VACCINE (#1) COVID-19 VACCI NE (#1) [facility] Start: 1964 HEPATITIS B (1 of 3 - 3-dose series) HEPATITIS B (1 of 3 - 3-dose series) [facility] ECG COMPLETE ECG COMPLETE ECG Routine Chest pain in adult Ordered: 07/16/2024 [facility] Comment on above: Ordered: 07/16/2024 End: 07-16-2025 EXERCISE STRESS ECG (WITHOUT IMAGING) EXERCISE STRESS ECG (WITHOUT IMAGING) Cardiology Routine Chest pain in adult 1 Occurrences starting 07/16/2024 until 07/16/2025 [facility] Comment on above: 1 Occurrences starti ng 07/16/2024 until 07/16/2025 End: 08-15-2025 XR Chest PA and Lateral XR CHEST 2V FRONTAL/LAT Radiology Routine Chest pain in adult 1 Occurrences starting 07/16/2024 until 08/15/2025 [facility] Comment on above: 1 Occurrences starti ng 07/16/2024 until 08/15/2025 XR Chest PA and Lateral XR CHEST 2V FRONTAL/LAT Radiology Routine Chest pain in adult 07/16/2024 3:26 PM EDT [facility] XR Finger GE 2 Views [facility] Immunizations Immunization Date Immunization Notes Care Provider Larry coker 07-16-2024 pneumococcal Conjugate, unspecified formulation Angie Anderson STORE OPERATIONS ASSOCIATE.INFORMATICS PHYSICIAN LIAISON Work Phone: [facility] 07-16-2024 pneumococcal conjuga te (PCV20) vaccine, 20 valent (PREVNAR 20) Angie Anderson STORE OPERATIONS ASSOCIATE.INFORMATICS PHYSICIAN LIAISON Work Phone: [facility] 07-16-2024 zoster vaccine recombinant Angie Anderson STORE OPERATIONS ASSOCIATE.INFORMATICS PHYSICIAN LIAISON Work Phone: [facility] 11-13-2019 influenza virus vaccine, unspecified formulation Jos Lutz STORE OPERATIONS ASSOCIATE.INFORMATICS PHYSICIAN LIAISON Work Phone: [facility] 11-11-2015 influenza, injectabl e, quadrivalent, contains preservative Jos Lutz STORE OPERATIONS ASSOCIATE.INFORMATICS PHYSICIAN LIAISON Work Phone: [facility] Work Phone: 09-10-2008 tetanus toxoid, reduced diphtheria toxoid, and acellular pertussis vaccine, adsorbed Jos Lutz STORE OPERATIONS ASSOCIATE.INFORMATICS PHYSICIAN LIAISON Work Phone: [facility] Work Phone: Payers Date Payer Category Payer Self-pay 2018 Private Health Insurance [employer] PPO Member Subscriber Plan / Payer (Effective 2018-Present) Name: Sabrina Gillette Relation to Subscriber: Self Name: Sabrina Gillette Payer ID: Not on file Type: PPO Address: [place] [id number] 2018 Unknown [id number] 2010 Unknown [id number] Unknown [id number] Unknown [id number] Unknown [id number] Unknown [id number] Social History Date Type Detail Facility Start: 07-14-2015 End: 10-19-2024 Tobacco smoking status NHIS Never smoked tobacco [facility] Start: 07-14-2015 End: 02-02-2022 Tobacco use and exposure Smokeless tobacco non-user [facility] Start: 01-14-2020 End: 09-28-2024 Alcohol intake Current non-drinker of alcohol (finding) [facility] Start: 1965 Sex Assigned At Not on file [facility] Start: 01-23-2022 End: 02-02-2022 Exposure to SARS-CoV-2 (event) Not sure [facility] Start: 07-05-2022 End: 12-13-2023 History of Social function [facility] Start: 07-05-2022 End: 12-13-2023 Tobacco use panel [facility] National Score (1-10 0), lower number is lower risk Not on file [facility] Has the [employer], [employer] threatened to shut off services in your home in past 12Mo No [facility] Do you belong to any clubs or organizations such as hinduism groups, unions, fraternal or athletic groups, or school groups? Yes [facility] Are you now , , , , never or living with a partner? [facility] How often to you hav e a drink containing alcohol? Never [facility] Do you feel stress - tense, restless, nervous, or anxious, or unable to sleep at night because your mind is troubled all the time - these days [OSQ] Only a little [facility] (I/We) worried wheth er (my/our) food would run out before (I/we) got money to buy more. Never true [facility] Start: 1965 Sex Assigned At Male [place] Functional Status Date Assessment Result Facility 05-21-2014 Are you deaf, or do you have serious difficulty hearing No 05/21/2014 9:14 AM Cinthia Romero MA No [facility] 05-21-2014 Are you blind, or do you have serious difficulty seeing, even when wearing glasses No 05/21/2014 9:14 AM Cinthia Romero MA No [facility] 05-21-2014 Do you have serious difficulty walking or climbing stairs No 05/21/2014 9:14 AM Cinthia Romero MA No [facility] 05-21-2014 Do you have difficul ty dressing or bathing No 05/21/2014 9:14 AM Cinthia Romero MA No [facility] 05-21-2014 Because of a physica l, mental, or emotional condition, do you have difficulty doing errands alone such as visiting a physician's office or shopping No 05/21/2014 9:14 AM EDT Cinthia Woods MA No [facility] Mental Status Date Assessment Result Facility 05-21-2014 Because of a physica l, mental, or emotional condition, do you have serious difficulty concentrating, remembering, or making decisions No 05/21/2014 9:14 AM EDT Cinthia Woods MA No [facility] Clinical Notes 08-22-2015 to 10-12-2024 Note Date & Type Note Facility 10-12-2024 Radiology Diagnostic study note [facility] Imaging Services [address] [place], [place] [address] Finger(s) Min 2 Views MR#: [id number] Acct: [id number] Name: SABRINA GILLETTE Rep #: [id number] : 1965 M 59 From: Erica Garcia MD PCP: Care Physician,No Primary Status: REG CLI Study:Finger(s) Min 2 Views Date of Exam: 10/11/24 Exam# [id number] Ordering Dr: Teresa Monge MD PROCEDURE: FINGER(S) MIN 2 VIEWS 10/11/2024 REASON FOR EXAM: MUCOUS CYST OF FINGER TECHNIQUE: FINGER(S) MIN 2 VIEWS COMPARISON: No FINDINGS: No acute bony pathology. Very mild D IP joint osteoarthritis. Localized soft tissue swelling, posterior to the D IP joint, possibly a skin cyst or nodule measuring up to 7 mm. RAD/Finger(s) Min 2 Views IMPRESSION: Possible skin cyst or nodule posterior to the D IP joint. Reading Location: RAD-RADHA-2 CC: Dr. 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 [facility]07-18-2025 Miscellaneous Notes* Discharge Instr - Nursing - Mel Sousa RN - 09/28/2024 9:27 AM EDT The patient received a copy of Colonoscopy discharge instructions that contain information for how to contact the physician who performed the procedure and when to seek medical care. documented in this encounter[facility] History and physical note * Herminio Webber MD - 09/28/2024 9:15 AM EDT HISTORY AND PHYSICAL Sabrina Enedina : 1965 REFERRING PHYSICIAN: Angie Podlogar [address] [facility] [address] CHIEF COMPLAINT: Patient presents with: Consult: Change in bowel habits, More constipated than usual, past six months. HPI: Sabrina is a 59 year old male referred for endoscopy. Sabrina notes due for colon cancer screening-hx of colon polyp (2016). Sabrina denies abdominal pain.. Sabrina denies diarrhea. Sabrina denies constipation. Sabrina notes a change in bowel habits. -feels like something is blocking his bowel movements, has a bm every other day with no change in size but notes he has to strain more to pass the stool Sabrina denies melena. Sabrina denies bright red blood per rectum. Sabrina denies hemorrhoids. Sabrina notes family history of colon issues. Father with colon cancer in his 80's Sabrina denies heartburn. Sabrina denies dysphagia. Sabrina denies a history of ulcers/ peptic ulcer disease. Sabrina has a hx of SUE c/w CPAP. Sabrina had a c/o CP during his annual visit- PCP ordered labs, EKG which were normal, has stress test scheduled for September. He SOB, dizziness, palpitations, syncope, edema, recent hospitalizations. Notes CP for the last 2 years- states it is nagging and has no associated symptoms . Sabrina has undergone prior endoscopy. Last colonoscopy was 08/[address] Cummins at [facility]. Sedation:Fentanyl 100 micrograms IV, Midazolam 5 mg IV, Diphenhydramine 50 mg IV Impression: - One 5 mm polyp in the distal transverse colon. Resected and retrieved. CONVERTED FINAL DIAGNOSIS Colon, distal transverse polyp, biopsy - Colonic mucosa with focal prominence of lymphoid aggregates and no other diagnostic abnormalities. - No adenomatous epithelium identified. MC/rw 08/25/2015 CURRENT MEDICATIONS Current Outpatient Medications Medication Sig CPAP/BIPAP/OTHER Auto CPAP 5-15 cmH2O DME [facility] No current facility-administered medications for this visit. ALLERGIES: Patient has no known allergies. PAST MEDICAL HISTORY PAST MEDICAL HISTORY Diagnosis Date Anxiety Obstructive sleep apnea DME [facility] PAST SURGICAL HISTORY PAST SURGICAL HISTORY Procedure Laterality Date COLONOSCOPY FLX DX W/COLLJ SPEC WHEN PFRMD 08/22/2015 Colonoscopy FAMILY HISTORY FAMILY HISTORY Problem Relation Age of Onset Cancer Mother pancreatic other (cancer) Mother Lung with met to brain Brain Cancer Mother Colon Cancer Father Skin Cancer Father other (MS) Sister SOCIAL HISTORY Social History Tobacco Use Smoking status: Never Smokeless tobacco: Never Substance Use Topics Alcohol use: No Drug use: No REVIEW OF SYMPTOMS: REVIEW OF SYSTEMS: General: The patient denies fatigue, denies weight loss, denies weight gain, denies feeling hot, and feelings of cold. Eyes: The patient denies glaucoma, denies eye injury/surgery, + glasses or contacts. Ear/Nose/Throat: The patient denies allergies, denies hayfever, denies ear infections, and denies bloody noses. Cardiovascular: The patient denies chest pain, denies heart disease, denies high blood pressure, denies high cholesterol, and denies poor circulation. Respiratory: The patient denies tuberculosis, denies pneumonia, denies frequent cough, denies shortness of breath, and denies coughing up blood. Gastrointestinal: The patient denies difficulty swallowing, denies acid reflux, denies ulcers, denies jaundice/hepatitis, denies gallbladder problems, denies vomiting, denies black or tarry stools, denies hemorrhoids, denies bleeding from rectum, denies diverticulitis, denies constipation, denies diarrhea, denies loss of stool control, and denies hernias. Kidney/Bladder: The patient denies kidney stones, denies urine infections, and denies bloody urine. Skin: The patient denies a history of skin cancer, denies bleeding/changing moles, and denies a history of skin rash. Neurologic: The patient denies a history of epilepsy/convulsions, denies headaches, denies head/spinal injuries, and denies stroke/TIA. Psychiatric: The patient denies psychiatric medications, denies depression, and denies voices. Endocrine: The patient denies thyroid disorders, denies diabetes, and denies hormonal problems. Hematologic: The patient denies a history of bruising, denies bleeding, and denies anemia. Infections: The patient denies a history of measles and mumps, denies rheumatic fever, and denies sexually transmitted diseases. Musculoskeletal: The patient denies back pain/injury, denies back problems, denies sciatica, deniesknee/foot trouble, denies arthritis, or denies gout. PHYSICAL EXAMINATION: General: The patient is 59 year old, male well nourished, well hydrated in no acute distress. The patient is oriented to time, place, and person. VITALS: Blood pressure 136/85, pulse 60, resp. rate 14, weight 88.9 kg (196 lb), SpO2 96%. Body mass index is 28.51 kg/m . HEENT: Normal cephalic, ataumatic, pupils are equally round, sclera are anicteric, mucous membranesare moist, oropharynx is clear. Neck has no masses, asymmetry or lymphadenopathy. Respiratory: Clear to auscultation. Normal respiratory excursion and pattern. Cardiac: Examination is regular rate and rhythm. Normal S1/S2 Abdominal exam: Soft, nontender, with no palpable masses. No hepatosplenomegaly. No palpable hernias. Extremities: no clubbing, cyanosis or edema. No adenopathy. LABORATORY VALUES: As Noted RADIOLOGIC STUDIES: As Noted Assessment IMPRESSION: change in bowel habits, history of colon polyps, family history of colon cancer in father PLAN: I have reviewed my findings with the surgeon. Will plan for lower endoscopy. We discussed therisks and benefits of the planned endoscopy in terms understandable to the patient. I have informedthe patient that complications can occur including failure to complete the endoscopy and perforation. Sabrina had the opportunity to ask questions concerning the planned endoscopy. Sabrina freely consents to surgery. We discussed the need to complete stress test prior to colonoscopy- he is currently schedule in September and notes he can get a sooner appt if he travels to [place]. I recommended moving up this appointment- he is agreeable. I will place order after stress test is complete and whether or not more testing is required. I plan to use MiraLAX bowel preparation I have explained to the patient the difference between IV conscious sedation and MAC anesthesia - and I have offered either, according to the patient's wishes. I have explained that with IV conscioussedation there is no anesthesia provider available and therefore there is a limitation of the amount of IV medications that can be given and that the patient may wake up in the middle of the procedure and/or experience pain/discomfort during the procedure. Further discussion was done and the patient was given the opportunity to ask questions and all questions were answered. Sabrina chooses IV conscious sedation. Sabrina was counseled that if there are changes in his/her medical condition, to let the office know if surgery should proceed. If there are changes in patient's medical condition from time of this encounter to the day of the procedure that preclude anesthesia, patient may have procedure cancelled for patient's safety. Diagnoses: (Z80.0) Family history of colon cancer (primary encounter diagnosis) (R19.4) Change in bowel habits (Z86.0100) Personal history of colon polyps, unspecified Consultation requested by Angie Podlogfelix FISHER for an opinion regarding change in bowel habits. My final recommendations will be communicated back to the requesting physician by way of shared Medical record or letter to requesting physician via US mail. Portions of this documentation were copied and pasted from previous office visit notes in order to provide a cohesive continuity of the history. The note has been reviewed and edited and updated as necessary. Renetta Whitmore APRN.CNP UPDATED HISTORY AND PHYSICAL EXAMINATION SERVICE DATE: 09/28/2024 SERVICE TIME: 8:47 AM PHYSICAL EXAM MUST BE COMPLETED ON ADMISSION The History and Physical (completed in the past 30 days) has been reviewed and the patient has beenexamined. The contents accurately reflect the patient's condition with the following additions or revisions since the H&P was completed. Examination indicates no changes. This H&P can be found in the attached. SIGNATURE: Herminio Webber III, MD PATIENT NAME: Sabrina Gillette DATE: September 28, 2024 TIME: 8:47 AM [facility]07-18-2025 History and physical note* Herminio Webber MD - 09/28/2024 9:15 AM EDT HISTORY AND PHYSICAL Sabrina Gillette : 1965 REFERRING PHYSICIAN: Angie Contreraslogar [address] [facility] [address] CHIEF COMPLAINT: Patient presents with: Consult: Change in bowel habits, More constipated than usual, past six months. HPI: Sabrina is a 59 year old male referred for endoscopy. Sabrina notes due for colon cancer screening-hx of colon polyp (2015). Sabrina denies abdominal pain.. Sabrina denies diarrhea. Sabrina denies constipation. Sabrina notes a change in bowel habits. -feels like something is blocking his bowel movements, has a bm every other day with no change in size but notes he has to strain more to pass the stool Sabrina denies melena. Sabrina denies bright red blood per rectum. Sabrina denies hemorrhoids. Sabrina notes family history of colon issues. Father with colon cancer in his 80's Sabrina denies heartburn. Sabrina denies dysphagia. Sabrina denies a history of ulcers/ peptic ulcer disease. Sabrina has a hx of SUE c/w CPAP. Sabrina had a c/o CP during his annual visit- PCP ordered labs, EKG which were normal, has stress test scheduled for September. He SOB, dizziness, palpitations, syncope, edema, recent hospitalizations. Notes CP for the last 2 years- states it is nagging and has no associated symptoms . Sabrina has undergone prior endoscopy. Last colonoscopy was 08/[address] Cummins at [facility]. Sedation:Fentanyl 100 micrograms IV, Midazolam 5 mg IV, Diphenhydramine 50 mg IV Impression: - One 5 mm polyp in the distal transverse colon. Resected and retrieved. CONVERTED FINAL DIAGNOSIS Colon, distal transverse polyp, biopsy - Colonic mucosa with focal prominence of lymphoid aggregates and no other diagnostic abnormalities. - No adenomatous epithelium identified. MC/bernardino 08/25/2015 CURRENT MEDICATIONS Current Outpatient Medications Medication Sig CPAP/BIPAP/OTHER Auto CPAP 5-15 cmH2O DME [facility] No current facility-administered medications for this visit. ALLERGIES: Patient has no known allergies. PAST MEDICAL HISTORY PAST MEDICAL HISTORY Diagnosis Date Anxiety Obstructive sleep apnea DME [facility] PAST SURGICAL HISTORY PAST SURGICAL HISTORY Procedure Laterality Date COLONOSCOPY FLX DX W/COLLJ SPEC WHEN PFRMD 08/22/2015 Colonoscopy FAMILY HISTORY FAMILY HISTORY Problem Relation Age of Onset Cancer Mother pancreatic other (cancer) Mother Lung with met to brain Brain Cancer Mother Colon Cancer Father Skin Cancer Father other (MS) Sister SOCIAL HISTORY Social History Tobacco Use Smoking status: Never Smokeless tobacco: Never Substance Use Topics Alcohol use: No Drug use: No REVIEW OF SYMPTOMS: REVIEW OF SYSTEMS: General: The patient denies fatigue, denies weight loss, denies weight gain, denies feeling hot, and feelings of cold. Eyes: The patient denies glaucoma, denies eye injury/surgery, + glasses or contacts. Ear/Nose/Throat: The patient denies allergies, denies hayfever, denies ear infections, and denies bloody noses. Cardiovascular: The patient denies chest pain, denies heart disease, denies high blood pressure, denies high cholesterol, and denies poor circulation. Respiratory: The patient denies tuberculosis, denies pneumonia, denies frequent cough, denies shortness of breath, and denies coughing up blood. Gastrointestinal: The patient denies difficulty swallowing, denies acid reflux, denies ulcers, denies jaundice/hepatitis, denies gallbladder problems, denies vomiting, denies black or tarry stools, denies hemorrhoids, denies bleeding from rectum, denies diverticulitis, denies constipation, denies diarrhea, denies loss of stool control, and denies hernias. Kidney/Bladder: The patient denies kidney stones, denies urine infections, and denies bloody urine. Skin: The patient denies a history of skin cancer, denies bleeding/changing moles, and denies a history of skin rash. Neurologic: The patient denies a history of epilepsy/convulsions, denies headaches, denies head/spinal injuries, and denies stroke/TIA. Psychiatric: The patient denies psychiatric medications, denies depression, and denies voices. Endocrine: The patient denies thyroid disorders, denies diabetes, and denies hormonal problems. Hematologic: The patient denies a history of bruising, denies bleeding, and denies anemia. Infections: The patient denies a history of measles and mumps, denies rheumatic fever, and denies sexually transmitted diseases. Musculoskeletal: The patient denies back pain/injury, denies back problems, denies sciatica, deniesknee/foot trouble, denies arthritis, or denies gout. PHYSICAL EXAMINATION: General: The patient is 59 year old, male well nourished, well hydrated in no acute distress. The patient is oriented to time, place, and person. VITALS: Blood pressure 136/85, pulse 60, resp. rate 14, weight 88.9 kg (196 lb), SpO2 96%. Body mass index is 28.51 kg/m . HEENT: Normal cephalic, ataumatic, pupils are equally round, sclera are anicteric, mucous membranesare moist, oropharynx is clear. Neck has no masses, asymmetry or lymphadenopathy. Respiratory: Clear to auscultation. Normal respiratory excursion and pattern. Cardiac: Examination is regular rate and rhythm. Normal S1/S2 Abdominal exam: Soft, nontender, with no palpable masses. No hepatosplenomegaly. No palpable hernias. Extremities: no clubbing, cyanosis or edema. No adenopathy. LABORATORY VALUES: As Noted RADIOLOGIC STUDIES: As Noted Assessment IMPRESSION: change in bowel habits, history of colon polyps, family history of colon cancer in father PLAN: I have reviewed my findings with the surgeon. Will plan for lower endoscopy. We discussed therisks and benefits of the planned endoscopy in terms understandable to the patient. I have informedthe patient that complications can occur including failure to complete the endoscopy and perforation. Sabrina had the opportunity to ask questions concerning the planned endoscopy. Sabrina freely consents to surgery. We discussed the need to complete stress test prior to colonoscopy- he is currently schedule in September and notes he can get a sooner appt if he travels to [place]. I recommended moving up this appointment- he is agreeable. I will place order after stress test is complete and whether or not more testing is required. I plan to use MiraLAX bowel preparation I have explained to the patient the difference between IV conscious sedation and MAC anesthesia - and I have offered either, according to the patient's wishes. I have explained that with IV conscioussedation there is no anesthesia provider available and therefore there is a limitation of the amount of IV medications that can be given and that the patient may wake up in the middle of the procedure and/or experience pain/discomfort during the procedure. Further discussion was done and the patient was given the opportunity to ask questions and all questions were answered. Sabrina chooses IV conscious sedation. Sabrina was counseled that if there are changes in his/her medical condition, to let the office know if surgery should proceed. If there are changes in patient's medical condition from time of this encounter to the day of the procedure that preclude anesthesia, patient may have procedure cancelled for patient's safety. Diagnoses: (Z80.0) Family history of colon cancer (primary encounter diagnosis) (R19.4) Change in bowel habits (Z86.0100) Personal history of colon polyps, unspecified Consultation requested by Angie Podlogfelix FISHER for an opinion regarding change in bowel habits. My final recommendations will be communicated back to the requesting physician by way of shared Medical record or letter to requesting physician via US mail. Portions of this documentation were copied and pasted from previous office visit notes in order to provide a cohesive continuity of the history. The note has been reviewed and edited and updated as necessary. Renetta Whitmore APRN.CNP UPDATED HISTORY AND PHYSICAL EXAMINATION SERVICE DATE: 09/28/2024 SERVICE TIME: 8:47 AM PHYSICAL EXAM MUST BE COMPLETED ON ADMISSION The History and Physical (completed in the past 30 days) has been reviewed and the patient has beenexamined. The contents accurately reflect the patient's condition with the following additions or revisions since the H&P was completed. Examination indicates no changes. This H&P can be found in the attached. SIGNATURE: Herminio Webber III, MD PATIENT NAME: Sabrina Gillette DATE: September 28, 2024 TIME: 8:47 AM documented in this encounterFire[facility] Telephone encounter Note * Telephone Encounter - Cassie Whyte RN - 07/30/2024 1:04 PM EDT Spoke with patient regarding reminder for stress test tomorrow and given instructions. [facility]05-19-[facility] Miscellaneous Notes* Telephone Encounter - Cassie Whyte RN - 07/30/2024 1:04 PM EDT Spoke with patient regarding reminder for stress test tomorrow and given instructions. documented in this encounterFirelands [facility] Center2025 History of Present illness Narrative* Renetta Whitmore APRN.NATALIA - 07/27/2024 2:30 PM EDT HISTORY AND PHYSICAL Sabrina Gillette : 1965 REFERRING PHYSICIAN: Angie Contreraslogfelix [address] [facility] [address] CHIEF COMPLAINT: Patient presents with: Consult: Change in bowel habits, More constipated than usual, past six months. HPI: Sabrina is a 59 year old male referred for endoscopy. Sabrina notes due for colon cancer screening-hx of colon polyp (2015). Sabrina denies abdominal pain.. Sabrina denies diarrhea. Sabrina denies constipation. Sabrina notes a change in bowel habits. -feels like something is blocking his bowel movements, has a bm every other day with no change in size but notes he has to strain more to pass the stool Sabrina denies melena. Sabrina denies bright red blood per rectum. Sabrina denies hemorrhoids. Sabrina notes family history of colon issues. Father with colon cancer in his 80's Sabrina denies heartburn. Sabrina denies dysphagia. Sabrina denies a history of ulcers/ peptic ulcer disease. Sabrina has a hx of SUE c/w CPAP. Sabrina had a c/o CP during his annual visit- PCP ordered labs, EKG which were normal, has stress test scheduled for September. He SOB, dizziness, palpitations, syncope, edema, recent hospitalizations. Notes CP for the last 2 years- states it is nagging and has no associated symptoms . Sabrina has undergone prior endoscopy. Last colonoscopy was 08/[address] Cummins at [facility]. Sedation:Fentanyl 100 micrograms IV, Midazolam 5 mg IV, Diphenhydramine 50 mg IV Impression: - One 5 mm polyp in the distal transverse colon. Resected and retrieved. CONVERTED FINAL DIAGNOSIS Colon, distal transverse polyp, biopsy - Colonic mucosa with focal prominence of lymphoid aggregates and no other diagnostic abnormalities. - No adenomatous epithelium identified. MC/rw 08/25/2015 Current Outpatient Medications Medication Sig CPAP/BIPAP/OTHER Auto CPAP 5-15 cmH2O D[facility] No current facility-administered medications for this visit. ALLERGIES: Patient has no known allergies. PAST MEDICAL HISTORY Diagnosis Date Anxiety Obstructive sleep apnea DME [facility] PAST SURGICAL HISTORY Procedure Laterality Date COLONOSCOPY FLX DX W/COLLJ SPEC WHEN PFRMD 08/22/2015 Colonoscopy FAMILY HISTORY Problem Relation Age of Onset Cancer Mother pancreatic other (cancer) Mother Lung with met to brain Brain Cancer Mother Colon Cancer Father Skin Cancer Father other (MS) Sister Social History Tobacco Use Smoking status: Never Smokeless tobacco: Never Substance Use Topics Alcohol use: No Drug use: No REVIEW OF SYMPTOMS: REVIEW OF SYSTEMS: General: The patient denies fatigue, denies weight loss, denies weight gain, denies feeling hot, and feelings of cold. Eyes: The patient denies glaucoma, denies eye injury/surgery, + glasses or contacts. Ear/Nose/Throat: The patient denies allergies, denies hayfever, denies ear infections, and denies bloody noses. Cardiovascular: The patient denies chest pain, denies heart disease, denies high blood pressure, denies high cholesterol, and denies poor circulation. Respiratory: The patient denies tuberculosis, denies pneumonia, denies frequent cough, denies shortness of breath, and denies coughing up blood. Gastrointestinal: The patient denies difficulty swallowing, denies acid reflux, denies ulcers, denies jaundice/hepatitis, denies gallbladder problems, denies vomiting, denies black or tarry stools, denies hemorrhoids, denies bleeding from rectum, denies diverticulitis, denies constipation, denies diarrhea, denies loss of stool control, and denies hernias. Kidney/Bladder: The patient denies kidney stones, denies urine infections, and denies bloody urine. Skin: The patient denies a history of skin cancer, denies bleeding/changing moles, and denies a history of skin rash. Neurologic: The patient denies a history of epilepsy/convulsions, denies headaches, denies head/spinal injuries, and denies stroke/TIA. Psychiatric: The patient denies psychiatric medications, denies depression, and denies voices. Endocrine: The patient denies thyroid disorders, denies diabetes, and denies hormonal problems. Hematologic: The patient denies a history of bruising, denies bleeding, and denies anemia. Infections: The patient denies a history of measles and mumps, denies rheumatic fever, and denies sexually transmitted diseases. Musculoskeletal: The patient denies back pain/injury, denies back problems, denies sciatica, deniesknee/foot trouble, denies arthritis, or denies gout. PHYSICAL EXAMINATION: General: The patient is 59 year old, male well nourished, well hydrated in no acute distress. The patient is oriented to time, place, and person. VITALS: Blood pressure 136/85, pulse 60, resp. rate 14, weight 88.9 kg (196 lb), SpO2 96%. Body mass index is 28.51 kg/m . HEENT: Normal cephalic, ataumatic, pupils are equally round, sclera are anicteric, mucous membranesare moist, oropharynx is clear. Neck has no masses, asymmetry or lymphadenopathy. Respiratory: Clear to auscultation. Normal respiratory excursion and pattern. Cardiac: Examination is regular rate and rhythm. Normal S1/S2 Abdominal exam: Soft, nontender, with no palpable masses. No hepatosplenomegaly. No palpable hernias. Extremities: no clubbing, cyanosis or edema. No adenopathy. LABORATORY VALUES: As Noted RADIOLOGIC STUDIES: As Noted Assessment IMPRESSION: change in bowel habits, history of colon polyps, family history of colon cancer in father PLAN: I have reviewed my findings with the surgeon. Will plan for lower endoscopy. We discussed therisks and benefits of the planned endoscopy in terms understandable to the patient. I have informedthe patient that complications can occur including failure to complete the endoscopy and perforation. Sabrina had the opportunity to ask questions concerning the planned endoscopy. Sabrina freely consents to surgery. We discussed the need to complete stress test prior to colonoscopy- he is currently schedule in September and notes he can get a sooner appt if he travels to [place]. I recommended moving up this appointment- he is agreeable. I will place order after stress test is complete and whether or not more testing is required. I plan to use MiraLAX bowel preparation I have explained to the patient the difference between IV conscious sedation and MAC anesthesia - and I have offered either, according to the patient's wishes. I have explained that with IV conscioussedation there is no anesthesia provider available and therefore there is a limitation of the amount of IV medications that can be given and that the patient may wake up in the middle of the procedure and/or experience pain/discomfort during the procedure. Further discussion was done and the patient was given the opportunity to ask questions and all questions were answered. Sabrina chooses IV conscious sedation. Sabrina was counseled that if there are changes in his/her medical condition, to let the office know if surgery should proceed. If there are changes in patient's medical condition from time of this encounter to the day of the procedure that preclude anesthesia, patient may have procedure cancelled for patient's safety. Diagnoses: (Z80.0) Family history of colon cancer (primary encounter diagnosis) (R19.4) Change in bowel habits (Z86.0100) Personal history of colon polyps, unspecified Consultation requested by Angie Anderson CNP for an opinion regarding change in bowel habits. My final recommendations will be communicated back to the requesting physician by way of shared Medical record or letter to requesting physician via [place] mail. Portions of this documentation were copied and pasted from previous office visit notes in order to provide a cohesive continuity of the history. The note has been reviewed and edited and updated as necessary. Renetta Whitmore APRN.CNP documented in this encounterFirelands [facility] Center2025 NoteHNO ID: [id number] Author: RENETTA WHITMORE APRN.CNP Service: ? Author Type: Nurse Practitioner Type: Progress Notes Filed: 07/27/2024 14:58 Note Text: HISTORY AND PHYSICAL Sabrina Gillette : 1965 REFERRING PHYSICIAN: Angie Anderson [address] [facility] [address] CHIEF COMPLAINT: Patient presents with: Consult: Change in bowel habits, More constipated than usual, past six months. HPI: Sabrina is a 59 year old male referred for endoscopy. Sabrina notes due for colon cancer screening-hx of colon polyp (2015). Sabrina denies abdominal pain.. Sabrina denies diarrhea. Sabrina denies constipation. Sabrina notes a change in bowel habits. -feels like something is blocking his bowel movements, has a bm every other day with no change in size but notes he has to strain more to pass the stool Sabrina denies melena. Sabrina denies bright red blood per rectum. Sabrina denies hemorrhoids. Sabrina notes family history of colon issues. Father with colon cancer in his 80's Sabrina denies heartburn. Sabrina denies dysphagia. Sabrina denies a history of ulcers/ peptic ulcer disease. Sabrina has a hx of SUE c/w CPAP. Sabrina had a c/o CP during his annual visit- PCP ordered labs, EKG which were normal, has stress test scheduled for September. He SOB, dizziness, palpitations, syncope, edema, recent hospitalizations. Notes CP for the last 2 years- states it is nagging and has no associated symptoms . Sabrina has undergone prior endoscopy. Last colonoscopy was 08/[address] Cummins at [facility]. Sedation:Fentanyl 100 micrograms IV, Midazolam 5 mg IV, Diphenhydramine 50 mg IV Impression: - One 5 mm polyp in the distal transverse colon. Resected and retrieved. CONVERTED FINAL DIAGNOSIS Colon, distal transverse polyp, biopsy - Colonic mucosa with focal prominence of lymphoid aggregates and no other diagnostic abnormalities. - No adenomatous epithelium identified. MC/rw 08/25/2015 Current Outpatient Medications Medication Sig CPAP/BIPAP/OTHER Auto CPAP 5-15 cmH2O DME [facility] No current facility-administered medications for this visit. ALLERGIES: Patient has no known allergies. PAST MEDICAL HISTORY Diagnosis Date Anxiety Obstructive sleep apnea DME [facility] PAST SURGICAL HISTORY Procedure Laterality Date COLONOSCOPY FLX DX W/COLLJ SPEC WHEN PFRMD 08/22/2015 Colonoscopy FAMILY HISTORY Problem Relation Age of Onset Cancer Mother pancreatic other (cancer) Mother Lung with met to brain Brain Cancer Mother Colon Cancer Father Skin Cancer Father other (MS) Sister Social History Tobacco Use Smoking status: Never Smokeless tobacco: Never Substance Use Topics Alcohol use: No Drug use: No REVIEW OF SYMPTOMS: REVIEW OF SYSTEMS: General: The patient denies fatigue, denies weight loss, denies weight gain, denies feeling hot, and feelings of cold. Eyes: The patient denies glaucoma, denies eye injury/surgery, + glasses or contacts. Ear/Nose/Throat: The patient denies allergies, denies hayfever, denies ear infections, and denies bloody noses. Cardiovascular: The patient denies chest pain, denies heart disease, denies high blood pressure, denies high cholesterol, and denies poor circulation. Respiratory: The patient denies tuberculosis, denies pneumonia, denies frequent cough, denies shortness of breath, and denies coughing up blood. Gastrointestinal: The patient denies difficulty swallowing, denies acid reflux, denies ulcers, denies jaundice/hepatitis, denies gallbladder problems, denies vomiting, denies black or tarry stools, denies hemorrhoids, denies bleeding from rectum, denies diverticulitis, denies constipation, denies diarrhea, denies loss of stool control, and denies hernias. Kidney/Bladder: The patient denies kidney stones, denies urine infections, and denies bloody urine. Skin: The patient denies a history of skin cancer, denies bleeding/changing moles, and denies a history of skin rash. Neurologic: The patient denies a history of epilepsy/convulsions, denies headaches, denies head/spinal injuries, and denies stroke/TIA. Psychiatric: The patient denies psychiatric medications, denies depression, and denies voices. Endocrine: The patient denies thyroid disorders, denies diabetes, and denies hormonal problems. Hematologic: The patient denies a history of bruising, denies bleeding, and denies anemia. Infections: The patient denies a history of measles and mumps, denies rheumatic fever, and denies sexually transmitted diseases. Musculoskeletal: The patient denies back pain/injury, denies back problems, denies sciatica, denies knee/foot trouble, denies arthritis, or denies gout. PHYSICAL EXAMINATION: General: The patient is 59 year old, male well nourished, well hydrated in no acute distress. The patient is oriented to time, place, and person. VITALS: Blood pressure 136/85, pulse 60, resp. rate 14, weight 88.9 kg (196 lb), SpO2 (more content not included)...[facility]05-07-2025 Telephone encounter Note* Telephone Encounter - Deya Armas LPN - 07/18/2024 2:14 PM EDT Telephone call placed to patient. Went over results and recommendations below. Voices understanding. Does not want to start a cholesterol lowering medication at this time. Deya Armas LPN [facility]05-07-2025 Miscellaneous Notes* Telephone Encounter - Deya Armas LPN - 07/18/2024 2:14 PM EDT Telephone call placed to patient. Went over results and recommendations below. Voices understanding. Does not want to start a cholesterol lowering medication at this time. Deya Armas LPN * Telephone Encounter - Deya Armas LPN - 07/18/2024 2:12 PM EDT ----- Message from Angie Anderson APRN.INFORMATICS PHYSICIAN LIAISON sent at 07/18/2024 11:54 AM EDT ----- Based on your age, race, gender, blood pressure, and cholesterol, your 10 year risk for having a cardiovascular event such as a stroke or heart attack is 8.6 %. Current guidelines suggest lipid lowering medication at a risk of 7.5%. In addition to l ow saturated fat diet and exercise recommend addition of low dose cholesterol medication. If he is agreeable will send to pharmacy. The rest of his blood work is normal as well as well as his chest xray. FOR REFERENCE ONLY The 10-year ASCVD risk score (Kathy ARANDA, et al., 2019) is: 8.6% Values used to calculate the score: Age: 59 years Sex: Male Is Non- : No Diabetic: No Tobacco smoker: No Systolic Blood Pressure: 136 mmHg Is BP treated: No HDL Cholesterol: 51 mg/dL Total Cholesterol: 180 mg/dL documented in this encounterFirelands [facility]05-07-2025 Telephone encounter Note * Telephone Encounter - Deya Armas LPN - 07/18/2024 2:12 PM EDT ----- Message from Angie Anderson APRN.CNP sent at 07/18/2024 11:54 AM EDT ----- Based on your age, race, gender, blood pressure, and cholesterol, your 10 year risk for having a cardiovascular event such as a stroke or heart attack is 8.6 %. Current guidelines suggest lipid lowering medication at a risk of 7.5%. In addition to l ow saturated fat diet and exercise recommend addition of low dose cholesterol medication. If he is agreeable will send to pharmacy. The rest of his blood work is normal as well as well as his chest xray. FOR REFERENCE ONLY The 10-year ASCVD risk score (Kathy ARANDA, et al., 2019) is: 8.6% Values used to calculate the score: Age: 59 years Sex: Male Is Non- : No Diabetic: No Tobacco smoker: No Systolic Blood Pressure: 136 mmHg Is BP treated: No HDL Cholesterol: 51 mg/dL Total Cholesterol: 180 mg/dL [facility]05-05-2025 History of Present illness Narrative* Toma Bruce RT(R) - 07/16/2024 3:20 PM EDT Radiology Service Progress Note PATIENT NAME: Sabrina Gillette DATE OF SERVICE: July 16, 2024 TIME: 3:17 PM PATIENT IDENTITY VERIFICATION COMPLETED USING TWO (2) IDENTIFIERS: Name and Date of confirmedby patient verbally. FALL SCREENING: Has the patient had 2 falls in the last year or 1 fall with injury or currently using an Ambulatory Assistive Device (Walker, Cane, Wheelchair, Crutches, etc.)? No PATIENT GENDER DATA: Assigned male at PATIENT RELEVANT IMPLANT DATA REVIEWED: Not Applicable PATIENT PRESENTS WITH AN IMPLANTABLE OR ATTACHED POSTAL SUPERVISOR: No RADIOLOGY DEPARTMENT: General X-ray: Exam(s) Completed: Chest X-Ray PERIPHERAL IV DATA: Not applicable SIGNED BY: RT Kailey(R) July 16, 2024 3:17 PM documented in this encounterFirelands [facility] Center05-05-2025 NoteHNO ID: [id number] Author: TOMA BRUCE RT(Bharati) Service: Radiology Author Type: Technologist Type: Progress Notes Filed: 07/16/2024 15:27 Note Text: Radiology Service Progress Note PATIENT NAME: Sabrina Gillette DATE OF SERVICE: July 16, 2024 TIME: 3:17 PM PATIENT IDENTITY VERIFICATION COMPLETED USING TWO (2) IDENTIFIERS: Name and Date of confirmed by patient verbally. FALL SCREENING: Has the patient had 2 falls in the last year or 1 fall with injury or currently using an Ambulatory Assistive Device (Walker, Cane, Wheelchair, Crutches, etc.)? No PATIENT GENDER DATA: Assigned male at PATIENT RELEVANT IMPLANT DATA REVIEWED: Not Applicable PATIENT PRESENTS WITH AN IMPLANTABLE OR ATTACHED POSTAL SUPERVISOR: No RADIOLOGY DEPARTMENT: General X-ray: Exam(s) Completed: Chest X-Ray PERIPHERAL IV DATA: Not applicable SIGNED BY: RT Kailey(R) July 16, 2024 3:17 [facility]05-05-2025 NoteHNO ID: [id number] Author: ANGIE ANDERSON APRN.INFORMATICS PHYSICIAN LIAISON Service: ? Author Type: Nurse Practitioner Type: Progress Notes Filed: 07/16/2024 15:16 Note Text: 07/16/2024 Patient presents with: Establish Care SUBJECTIVE: This is a 59 year old that is here today for Above Complaints. Admits to daily chest pain. Pain located left chest. Described as a nagging. No aggravating features. Doesn't take anything for pain. Denies accompanying diaphoresis, SOB, dyspnea, jaw/back pain, nausea or vomiting Reports for the last six months feels like something is blocking and he can not have a complete bowel movements. At first thought it was related to constipation. Has bowel movements daily and hasn't noticed a changes in caliber. Denies weight loss, abdominal pain, nausea, vomiting, hematochezia or melana. Normal colonoscopy in 2016. Father from colon cancer in his 80's. SUE: uses CPAP nightly Past medical, surgical, family, social hx, medications, allergies, health maintenance reviewed and updated PAST MEDICAL HISTORY Diagnosis Date Anxiety Mental disorder Obstructive sleep apnea DME [facility] ALLERGIES Patient has no known allergies. MEDICATIONS Current Outpatient Medications Medication Sig CPAP/BIPAP/OTHER Auto CPAP 5-15 cmH2O DME [facility] No current facility-administered medications for this visit. Medications and allergies reviewed by this provider. SOCIAL HISTORY Social History Tobacco Use Smoking status: Never Smokeless tobacco: Never Substance Use Topics Alcohol use: No Drug use: No REVIEW OF SYSTEMS GENERAL: No weight loss, malaise or fevers HEENT: Negative for frequent or significant headaches, No changes in hearing or vision, no nose bleeds or other nasal problems NECK: Negative for lumps, goiter, pain and significant neck swelling RESPIRATORY: Negative for cough, hemoptysis, wheezing, COPD, dyspnea or shortness of breath CARDIOVASCULAR: See HPI GI: See HPI : No history of dysuria, frequency or incontinence MUSCULOSKELETAL: Negative for joint pain or swelling, back pain or muscle pain and pain in right hand SKIN: Negative for lesions, rash, and itching PSYCH: Negative for sleep disturbance, mood disorder and recent psychosocial stressors HEMATOLOGY/LYMPHOLOGY: Negative for prolonged bleeding, bruising easily or swollen nodes ENDOCRINE: Negative for cold or heat intolerance, polyuria, polydipsia and goiter NEURO: No history of headaches, syncope, paralysis, seizures or tremors All other reviewed and negative other than HPI. OBJECTIVE: BP 136/84 Pulse (!) 58 Resp 16 Ht 176.6 cm (5' 9.53) Wt 89.4 kg (197 lb) SpO2 97% BMI 28.65 kg/m? . Vital signs reviewed by this provider. APPEARANCE Well appearing, alert, in no acute distress, well-hydrated, well nourished. EYES conjunctiva and sclera normal. EARS External ears normal, canals clear NECK Supple, no adenopathy; thyroid symmetric, normal size, no bruits HEART RRR with normal S1 and S2, no murmurs, no gallops, no JVD appreciated LUNG clear to auscultation. No wheezes, rhonchi or rales ABDOMEN bowel sounds normoactive, no bruits, soft, non-tender, non-distended EXTREMITIES Extremities normal, No deformities, No skin discoloration, and No edema SKIN Skin color, texture, turgor normal, no suspicious rashes or lesions to exposed skin ASSESSMENT/PLAN: 1. Encounter for medical examination to establish care - ICD9: V70.9, ICD10: Z00.00 (primary diagnosis) - Counseled on healthy diet and regular exercise - Discussed need for and benefit of weight loss. BMI 28.65 kg/(m2) - Follow up for annual exam in one year - COMPREHENSIVE METABOLIC PANEL - COMPLETE BLOOD COUNT AND DIFFERENTIAL 2. Screening for hypercholesterolemia - ICD9: V77.91, ICD10: Z13.220 - LIPID PANEL, FASTING 3. Special screening examination for viral disease - ICD9: V73.99, ICD10: Z11.59 - HEPATITIS C ANTIBODY IA WITH CONFIRMATION 4. Encounter for screening examination for other mental health and behavioral disorders - ICD9: V79.8, ICD10: Z13.39 - ANXIETY SCREENING 5. Screening for HIV (human immunodeficiency virus) - ICD9: V73.89, ICD10: Z11.4 - HIV 1/2 COMBO WITH REFLEX TO DIFFERENTIATION 6. Screening for depression - ICD9: V79.0, ICD10: Z13.31 - negative screen 7. Encounter for immunization - ICD9: V03.89, ICD10: Z23 - ZOSTER VACCINE, RECOMBINANT (SHINGRIX) - ZOSTER VACCINE, RECOMBINANT (SHINGRIX) - PNEUMOCOCCAL VACCINE, 20 VALENT (PREVNAR 20) 8. Chest pain in adult - ICD9: 786.50, ICD10: R07.9 - Electrocardiogram: An ECG today showed normal sinus rhythm at 62 BPM, IL interval 166 ms, normal QRS, normal ST-T, QT 410 ms - Lab evaluation CMP, CBC, and Lipid panel - MAGNESIUM - Chest X-ray today. - Stress testing- see orders - XR CHEST 2V FRONTAL/LAT - ECG COMPLETE - EXERCISE STRESS ECG (WITHOUT IMAGING) - follow-up pending testing 9. Change in bowel habits - ICD9: 787. (more content not included)...[facility]05-05-2025 History of Present illness Narrative* Angie Anderson APRN.INFORMATICS PHYSICIAN LIAISON - 07/16/2024 1:58 PM EDT 07/16/2024 Patient presents with: Establish Care SUBJECTIVE: This is a 59 year old that is here today for Above Complaints. Admits to daily chest pain. Pain located left chest. Described as a nagging. No aggravating features. Doesn't take anything for pain. Denies accompanying diaphoresis, SOB, dyspnea, jaw/back pain, nausea or vomiting Reports for the last six months feels like something is blocking and he can not have a complete bowel movements. At first thought it was related to constipation. Has bowel movements daily and hasn't noticed a changes in caliber. Denies weight loss, abdominal pain, nausea, vomiting, hematochezia or melana. Normal colonoscopy in 2016. Father from colon cancer in his 80's. SUE: uses CPAP nightly Past medical, surgical, family, social hx, medications, allergies, health maintenance reviewed and updated PAST MEDICAL HISTORY Diagnosis Date Anxiety Mental disorder Obstructive sleep apnea DME [facility] Patient has no known allergies. MEDICATIONS Current Outpatient Medications Medication Sig CPAP/BIPAP/OTHER Auto CPAP 5-15 cmH2O DME [facility] No current facility-administered medications for this visit. Medications and allergies reviewed by this provider. SOCIAL HISTORY Social History Tobacco Use Smoking status: Never Smokeless tobacco: Never Substance Use Topics Alcohol use: No Drug use: No REVIEW OF SYSTEMS GENERAL: No weight loss, malaise or fevers HEENT: Negative for frequent or significant headaches, No changes in hearing or vision, no nose bleeds or other nasal problems NECK: Negative for lumps, goiter, pain and significant neck swelling RESPIRATORY: Negative for cough, hemoptysis, wheezing, COPD, dyspnea or shortness of breath CARDIOVASCULAR: See HPI GI: See HPI : No history of dysuria, frequency or incontinence MUSCULOSKELETAL: Negative for joint pain or swelling, back pain or muscle pain and pain in right hand SKIN: Negative for lesions, rash, and itching PSYCH: Negative for sleep disturbance, mood disorder and recent psychosocial stressors HEMATOLOGY/LYMPHOLOGY: Negative for prolonged bleeding, bruising easily or swollen nodes ENDOCRINE: Negative for cold or heat intolerance, polyuria, polydipsia and goiter NEURO: No history of headaches, syncope, paralysis, seizures or tremors All other reviewed and negative other than HPI. OBJECTIVE: BP 136/84 Pulse (!) 58 Resp 16 Ht 176.6 cm (5' 9.53) Wt 89.4 kg (197 lb) SpO2 97% BMI 28.65 kg/m . Vital signs reviewed by this provider. APPEARANCE Well appearing, alert, in no acute distress, well-hydrated, well nourished. EYES conjunctiva and sclera normal. EARS External ears normal, canals clear NECK Supple, no adenopathy; thyroid symmetric, normal size, no bruits HEART RRR with normal S1 and S2, no murmurs, no gallops, no JVD appreciated LUNG clear to auscultation. No wheezes, rhonchi or rales ABDOMEN bowel sounds normoactive, no bruits, soft, non-tender, non-distended EXTREMITIES Extremities normal, No deformities, No skin discoloration, and No edema SKIN Skin color, texture, turgor normal, no suspicious rashes or lesions to exposed skin ASSESSMENT/PLAN: 1. Encounter for medical examination to establish care - ICD9: V70.9, ICD10: Z00.00 (primary diagnosis) - Counseled on healthy diet and regular exercise - Discussed need for and benefit of weight loss. BMI 28.65 kg/(m^2) - Follow up for annual exam in one year - COMPREHENSIVE METABOLIC PANEL - COMPLETE BLOOD COUNT AND DIFFERENTIAL 2. Screening for hypercholesterolemia - ICD9: V77.91, ICD10: Z13.220 - LIPID PANEL, FASTING 3. Special screening examination for viral disease - ICD9: V73.99, ICD10: Z11.59 - HEPATITIS C ANTIBODY IA WITH CONFIRMATION 4. Encounter for screening examination for other mental health and behavioral disorders - ICD9: V79.8, ICD10: Z13.39 - ANXIETY SCREENING 5. Screening for HIV (human immunodeficiency virus) - ICD9: V73.89, ICD10: Z11.4 - HIV 1/2 COMBO WITH REFLEX TO DIFFERENTIATION 6. Screening for depression - ICD9: V79.0, ICD10: Z13.31 - negative screen 7. Encounter for immunization - ICD9: V03.89, ICD10: Z23 - ZOSTER VACCINE, RECOMBINANT (SHINGRIX) - ZOSTER VACCINE, RECOMBINANT (SHINGRIX) - PNEUMOCOCCAL VACCINE, 20 VALENT (PREVNAR 20) 8. Chest pain in adult - ICD9: 786.50, ICD10: R07.9 - Electrocardiogram: An ECG today showed normal sinus rhythm at 62 BPM, IL interval 166 ms, normal QRS, normal ST-T, QT 410 ms - Lab evaluation CMP, CBC, and Lipid panel - MAGNESIUM - Chest X-ray today. - Stress testing- see orders - XR CHEST 2V FRONTAL/LAT - ECG COMPLETE - EXERCISE STRESS ECG (WITHOUT IMAGING) - follow-up pending testing 9. Change in bowel habits - ICD9: 787.99, ICD10: R19.4 - recommend colonoscopy - CONSULT TO GENERAL SURGERY 10. SUE (obstructive sleep apnea) - ICD9: 327.23, ICD10: G47.33 - continue nightly use of CPAP Angie Anderson APRN.CNP Prescription instructions reviewed with patient as applicable. Patient advised if symptoms do not improve or if symptoms worsen sooner, to contact their primary care physician. Potential red flag symptoms discussed with the patient. Reviewed appropriate action plan to take if red flag symptoms occur. Patient agreeable to treatment plan. I spent a total of 45 minutes on the date of the service which included preparing to see the patient, [id number] patient care, completing clinical documentation, obtaining and/or reviewing separately obtained history, performing a medically appropriate examination, counseling and educating the pat ient/family/caregiver, and ordering medications, tests, or procedures. documented in this encounterFirelands [facility]10-14-2024 Telephone encounter Note * Telephone Encounter - Sheela Kilgore LPN - 12/26/2023 5:07 PM EDT Orders faxed. Sheela Kilgore LPN [facility]10-[facility]24 Miscellaneous Notes* Telephone Encounter - Sheela Kilgore LPN - 12/26/2023 5:07 PM EDT Orders faxed. Sheela Kilgore LPN * Telephone Encounter - Kay Aceves APRN.CNP - 12/26/2023 2:55 PM EDT Ronen Aceves APRN.CNP * Telephone Encounter - Sheela Kilgore LPN - 12/26/2023 1:42 PM EDT Apryl is requesting a new order for a CPAP and an addendum to office note stating machine is broken, is over 7 years old, and not transmitting. Sheela Kilgore LPN documented in this encounterFirelands [facility] Center10-14-2024 Telephone encounter Note * Telephone Encounter - Kay Aceves APRN.CNP - 12/26/2023 2:55 PM EDT Ronen Aceves APRN.NATALIA [facility] Work Phone: 1(818) 467-332010-14-2024 Telephone encounter Note* Telephone Encounter - Sheela Kilgore LPN - 12/26/2023 1:42 PM EDT Apryl is requesting a new order for a CPAP and an addendum to office note stating machine is broken, is over 7 years old, and not transmitting. Sheela Kilgore LPN [facility]10-02-2024 Telephone encounter Note* Telephone Encounter - Glenis Viera LPN - 12/14/2023 12:10 PM EDT Betzaida from [facility] requesting signed OV notes from 01/26/2016. Notes faxed as requested to [phone]. Glenis Viera LPN \ [facility]10-02-2024 Miscellaneous Notes* Telephone Encounter - Glenis Viera LPN - 12/14/2023 12:10 PM EDT Betzaida from [facility] requesting signed OV notes from 01/26/2016. Notes faxed as requested to [phone]. Glenis Viera LPN \ documented in this encounterFirelands [facility] Center10-01-2024 Telephone encounter Note * Telephone Encounter - Sheela Kilgore LPN - 12/13/2023 3:33 PM EDT Orders faxed. Sheela Kilgore LPN [facility]10-[facility]24 Miscellaneous Notes* Telephone Encounter - Sheela Kilgore LPN - 12/13/2023 3:33 PM EDT Orders faxed. Sheela Kilgore LPN * Telephone Encounter - Kay Aceves APRN.CNP - 12/13/2023 3:18 PM EDT Order for PAP supplies to [facility] please Kay Aceves APRN.CNP documented in this encounterFirelands [facility] Medical Center10-01-2024 Telephone encounter Note * Telephone Encounter - Kay Aceves APRN.CNP - 12/13/2023 3:18 PM EDT Order for PAP supplies to [facility] please Kay Aceves APRN.CNP [facility] Work Phone: 1(790) 465-379810-01-2024 History of Present illness Narrative* Kay Aceves APRN.CNP - 12/13/2023 3:00 PM EDT Images from the original note were not included. [facility] New Patient Evaluation PATIENT NAME: Sabrina Gillette DATE OF SERVICE: December 13, 2023 I have communicated my name and active licensure. The patient's identity and physical location wereverified at the time of this visit. Either the patient or their legal employee representative has been informed of the risks and benefits of -- and alternatives to -- treatment through a remote evaluation andconsents to proceed with the evaluation remotely. CONSULTING PROVIDER: No referring provider defined for this encounter. REASON FOR VISIT: SUE HPI: Sabrina Gillette is a 58 year old male. Sleep-related history: SUE, previous pt of Sleep Disorders Center Needs new PAP supplies autoCPAP 5-15 cmH2O DME [facility], getting leaks since needs replaced, otherwise no issues with PAP Benefits: no snoring or witnessed apneas SLEEP-WAKE SCHEDULE Bedtime: 830 PM. He does not have a hard time falling asleep. Wake time: 230 AM, with an alarm. After falling asleep: he does not usually wake up during the night. On weekends, he maintains the same sleep schedule. Average total sleep time (in a 24 hour period): 5 hours. SLEEP-RELATED DETAILS Preferred sleep position: back Breathing disturbances and other behaviors during sleep: controlled w/ PAP. GERD or aspiration: No Waking up with heart pounding or racing: No Anxiety or rumination: No He does not report having an urge to move the legs in the evening (when resting) that is accompanied or caused by uncomfortable and/or unpleasant sensations in the legs. He has not been told that he has leg kicking during sleep. He denies any history of parasomnias. Daytime sleepiness is not a problem. He does not report sleep paralysis or sleep-related hallucinations or cataplexy WAKE-RELATED DETAILS He works but is not a shift worker but starts very early He does not have difficulty with memory or concentration. He denies falling asleep or dozing off when driving. He does not take naps. He does drink 1 caffeinated beverages per day. There has not been a recent change in weight. Patient Questionnaires Sleep Scores 12/13/2023 Sleep Questions Reason for visit: Sleep apnea Average hours of CPAP per night: 5 Percent of nights CPAP used at least 4 hours: 95 12/13/2023 Reeders Sleepiness Scale Score 3 (No clinically significant daytime sleepiness) 12/13/2023 PROMIS CAT Sleep Disturbance PROMIS Sleep Disturbance T-Score 49 (within normal limits) PROMIS Sleep Disturbance Percentile 54 PAST TREATMENTS: AutoPAP PRIOR SLEEP STUDIES: A Polysomnogram performed on 02/29/16 revealed an AHI of 11.6; supine index of 11.4; REM index of 33.8, PLM index of 0, PLM arousal index of 0, and the oxygen saturation was below 90% for 0.2% of thestudy. PAST MEDICAL HISTORY Diagnosis Date Anxiety Mental disorder Obstructive sleep apnea DME [facility] PAST SURGICAL HISTORY Procedure Laterality Date COLONOSCOPY FLX DX W/COLLJ SPEC WHEN PFRMD 08/22/2015 Colonoscopy ACTIVE PROBLEM LIST ANXIETY ACUTE STRESS REACTION Elevated Blood Pressure Reading Without Diagnosis of Hypertension Psychosexual Dysfunction With Inhibited Sexual Excitement Neck Pain Sue (Obstructive Sleep Apnea) Allergies As of Date: 12/13/2023 (No Known Allergies) Fully Assessed 07/05/2022 CURRENT MEDICATIONS: CPAP autoPAP 5-15 cmH2O, mask, tubing, filters, heated humidity, lifetime supplies. Dx: SUE Review of Systems Constitutional: Negative for recent unintentional weight change. Cardiovascular: Negative for palpitations. Gastrointestinal: Negative for heartburn. Genitourinary: Negative for nocturia. Neurological: Negative for headaches and memory loss. SOCIAL HISTORY: Social History Tobacco Use Smoking status: Never Smokeless tobacco: Never Substance Use Topics Alcohol use: No Drug use: No FAMILY HISTORY: FAMILY HISTORY Problem Relation Age of Onset Cancer Mother pancreatic other (cancer) Mother Lung with met to brain Colon Cancer Father There is no family history of sleep disorders. PHYSICAL EXAMINATION: Vital Signs: Deferred due to virtual visit via Zoom. General appearance: NAD Mental status: awake and alert Constitutional: Well groomed Skin: Dry and intact Neuro: Speech fluent IMPRESSION/PLAN: G47.33 SUE on CPAP (primary encounter diagnosis) Sabrina Gillette is a 58 year old male with SUE, hx anxiety, hx elevated BP. He uses PAP therapy all night every night, reports subjective benefits. He has upcoming appointment for physical. - Rx for new supplies, can they check machine to make sure working ok, or if needs new one, this ishis original device from 2017 - Continue Auto CPAP at 5-15 cmH2O. - Remember to clean your mask and equipment regularly, as directed. - You should be eligible for new supplies approximately every 3-6 months, depending on your insurance coverage. Contact your Durable Medical Equipment (DME) company for new supplies as needed. - Follow up in 12 months with [facility]. Kay Aceves APRN.CNP documented in this encounterFirelands Regional Medical Center10-01-2024 NoteHNO ID: [id number] Author: KAY ACEVES APRN.CNP Service: ? Author Type: Nurse Practitioner Type: Progress Notes Filed: 12/26/2023 14:53 Note Text: Addendum: PAP machine is broken, is over 7 years old, and not transmitting. Will write rx for new device. Kay Aceves APRN.CNP [facility] New Patient Evaluation PATIENT NAME: Sabrina Gillette DATE OF SERVICE: December 13, 2023 I have communicated my name and active licensure. The patient's identity and physical location were verified at the time of this visit. Either the patient or their legal employee representative has been informed of the risks and benefits of -- and alternatives to -- treatment through a remote evaluation and consents to proceed with the evaluation remotely. CONSULTING PROVIDER: No referring provider defined for this encounter. REASON FOR VISIT: SUE HPI: Sabrina Gillette is a 58 year old male. Sleep-related history: SUE, previous pt of Sleep Disorders Center Needs new PAP supplies autoCPAP 5-15 cmH2O DME [facility], getting leaks since needs replaced, otherwise no issues with PAP Benefits: no snoring or witnessed apneas SLEEP-WAKE SCHEDULE Bedtime: 830 PM. He does not have a hard time falling asleep. Wake time: 230 AM, with an alarm. After falling asleep: he does not usually wake up during the night. On weekends, he maintains the same sleep schedule. Average total sleep time (in a 24 hour period): 5 hours. SLEEP-RELATED DETAILS Preferred sleep position: back Breathing disturbances and other behaviors during sleep: controlled w/ PAP. GERD or aspiration: No Waking up with heart pounding or racing: No Anxiety or rumination: No He does not report having an urge to move the legs in the evening (when resting) that is accompanied or caused by uncomfortable and/or unpleasant sensations in the legs. He has not been told that he has leg kicking during sleep. He denies any history of parasomnias. Daytime sleepiness is not a problem. He does not report sleep paralysis or sleep-related hallucinations or cataplexy WAKE-RELATED DETAILS He works but is not a shift worker but starts very early He does not have difficulty with memory or concentration. He denies falling asleep or dozing off when driving. He does not take naps. He does drink 1 caffeinated beverages per day. There has not been a recent change in weight. Patient Questionnaires Sleep Scores 12/13/2023 Sleep Questions Reason for visit: Sleep apnea Average hours of CPAP per night: 5 Percent of nights CPAP used at least 4 hours: 95 12/13/2023 Reeders Sleepiness Scale Score 3 (No clinically significant daytime sleepiness) 12/13/2023 PROMIS CAT Sleep Disturbance PROMIS Sleep Disturbance T-Score 49 (within normal limits) PROMIS Sleep Disturbance Percentile 54 PAST TREATMENTS: AutoPAP PRIOR SLEEP STUDIES: A Polysomnogram performed on 02/29/16 revealed an AHI of 11.6; supine index of 11.4; REM index of 33.8, PLM index of 0, PLM arousal index of 0, and the oxygen saturation was below 90% for 0.2% of the study. PAST MEDICAL HISTORY Diagnosis Date Anxiety Mental disorder Obstructive sleep apnea DME [facility] PAST SURGICAL HISTORY Procedure Laterality Date COLONOSCOPY FLX DX W/COLLJ SPEC WHEN PFRMD 08/22/2015 Colonoscopy ACTIVE PROBLEM LIST ANXIETY ACUTE STRESS REACTION Elevated Blood Pressure Reading Without Diagnosis of Hypertension Psychosexual Dysfunction With Inhibited Sexual Excitement Neck Pain Sue (Obstructive Sleep Apnea) Allergies As of Date: 12/13/2023 (No Known Allergies) Fully Assessed 07/05/2022 CURRENT MEDICATIONS: CPAP autoPAP 5-15 cmH2O, mask, tubing, filters, heated humidity, lifetime supplies. Dx: SUE Review of Systems Constitutional: Negative for recent unintentional weight change. Cardiovascular: Negative for palpitations. Gastrointestinal: Negative for heartburn. Genitourinary: Negative for nocturia. Neurological: Negative for headaches and memory loss. SOCIAL HISTORY: Social History Tobacco Use Smoking status: Never Smokeless tobacco: Never Substance Use Topics Alcohol use: No Drug use: No FAMILY HISTORY: FAMILY HISTORY Problem Relation Age of Onset Cancer Mother pancreatic other (cancer) Mother Lung with met to brain Colon Cancer Father There is no family history of sleep disorders. PHYSICAL EXAMINATION: Vital Signs: Deferred due to virtual visit via Zoom. General appearance: NAD Mental status: awake and alert Constitutional: Well groomed Skin: Dry and intact Neuro: Speech fluent IMPRESSION/PLAN: G47.33 SUE on CPAP (primary encounter diagnosis) Sabrina Gillette is a 58 year old male with SUE, hx anxiety, hx elevated BP. He uses PAP therapy all night every night, reports subjective benefits. He has upcoming appointment for physical. - Rx for new supplies, can they check machine to make sure working ok, or if needs (more content not included)...[facility]08-26-2024 Telephone encounter Note* Telephone Encounter - Anna Head OCCA - 11/07/2023 2:35 PM EDT Faxed e-signed office note back to [facility]. CPAP Rx unsigned as patient has not been seen since July 2019. Patient contacted to schedule appointment. [facility]08-26-[facility] Miscellaneous Notes* Telephone Encounter - Anna Head OCCA - 11/07/2023 2:35 PM EDT Faxed e-signed office note back to [facility]. CPAP Rx unsigned as patient has not been seen since July 2019. Patient contacted to schedule appointment. documented in this encounterFirelands [facility] Medical Center08-16-2024 Telephone encounter Note * Telephone Encounter - Anna Head OCCA - 10/28/2023 12:52 PM EDT Received faxed CPAP Rx from Mamta at [facility]. Most recent e-signed office note included. Placed on Jos's desk for signature and review. [facility]08-[facility] Miscellaneous Notes* Telephone Encounter - Anna Head OCCA - 10/28/2023 12:52 PM EDT Received faxed CPAP Rx from [facility]. Most recent e-signed office note included. Placed on Jos's desk for signature and review. documented in this encounterFirelands [facility] Medical Center06-25-2024 Telephone encounter Note * Telephone Encounter - Anna Head OCCA - 09/06/2023 10:04 AM EDT Received fax from [facility] requesting signed office note and a signature on the CMN. Requests faxed to Sleep Medicine at [facility], per provider request. [facility]06-25-2024 Miscellaneous Notes* Telephone Encounter - Anna Head OCCA - 09/06/2023 10:04 AM EDT Received fax from [facility] requesting signed office note and a signature on the CMN. Requests faxed to Sleep Medicine at [facility], per provider request. documented in this encounterFirelands Regional Medical Center04-24-2023 History of Present illness Narrative* Carmela Forbes PA-C - 07/05/2022 2:49 PM EDT Images from the original note were not included. This note was created using [employer]. Subjective Sabrina Gillette is a 57 year old male. HPI Patient presents with right mid back pain over the past 8 days. He was flying a kite when he lost his balance and tripped over a brick fire pit and fell landing on his back. He states he had some pain initially but a couple days ago it seemed to increase so he came in for evaluation. He does have pain with breathing and moving. Denies shortness of breath. No cough. No abdominal pain. No blood in urine. He has been using ibuprofen for pain relief. No head or neck injury. Review of Systems Constitutional: Negative. HENT: Negative. Respiratory: Negative. Cardiovascular: Negative. Gastrointestinal: Negative. Genitourinary: Negative. Musculoskeletal: Positive for back pain. All other systems reviewed and are negative. PAST MEDICAL HISTORY Diagnosis Date Anxiety Mental disorder Obstructive sleep apnea DME [facility] Current Outpatient Medications Medication Sig Dispense Refill CPAP autoPAP 5-15 cmH2O, mask, tubing, filters, heated humidity, lifetime supplies. Dx: SUE 1 Device 0 No current facility-administered medications for this visit. PAST SURGICAL HISTORY Procedure Laterality Date COLONOSCOPY FLX DX W/COLLJ SPEC WHEN PFRMD 08/22/2015 Colonoscopy FAMILY HISTORY Problem Relation Age of Onset Cancer Mother pancreatic other (cancer) Mother Lung with met to brain Colon Cancer Father Social History Tobacco Use Smoking status: Never Smokeless tobacco: Never Substance Use Topics Alcohol use: No Drug use: No Objective BP 124/80 Pulse 61 Temp (!) 35.3 C (95.6 F) Resp 21 Wt 89.6 kg (197 lb 9.6 oz) SpO2 98% BMI 27.66 kg/m Physical Exam Vitals reviewed. Constitutional: Appearance: Normal appearance. HENT: Head: Normocephalic and atraumatic. Cardiovascular: Rate and Rhythm: Normal rate and regular rhythm. Heart sounds: Normal heart sounds. Pulmonary: Effort: Pulmonary effort is normal. Breath sounds: Normal breath sounds. Comments: Patient tender along the lower thoracic right-sided back musculature and lower ribs. No step-off or crepitation. No obvious swelling or bruising. No midline thoracic tenderness on palpation. Some pain with bending. No pain with twisting. Lungs are clear. Skin: General: Skin is warm and dry. Neurological: Mental Status: He is alert. Assessment and Plan ASSESSMENT/PLAN: 1. Acute right-sided thoracic back pain - ICD9: 724.1, ICD10: M54.6 X-rays of the thoracic back and ribs were negative for any fractures or other acute findings. 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 Recommend continuing ibuprofen,ice, heat, rest. If not improving over the next week follow-up with PCP. - XR RIBS/CHEST 3V AP RIB/OBLS/CXR RIGHT - XR THORACIC GENERAL 3V AP/LAT/SWIMMERS Carmela Forbes PA-C documented in this encounterFirelands [facility] Center04-24-2023 Miscellaneous Notes* Telephone Encounter - Oumou Weiss LPN - 07/05/2022 2:24 PM EDT Patient notified of results, verbalizes understanding of instructions. Oumou Weiss LPN * Telephone Encounter - Carmela Forbes PA-C - 07/05/2022 2:12 PM EDT PLease call patient and let him know radiologist did not see any displaced rib fractures. He does have incidental arthritis and joint space narrowing in his mid thoracic back that they saw on his spine films. Recommend continuing ibuprofen, ice, rest, follow-up with PCP if not continuing to improve. documented in this encounterFirelands Regional Medical Center04-24-2023 History of Present illness Narrative* Tanna Head RT(R) - 07/05/2022 1:40 PM EDT Radiology Service Progress Note PATIENT NAME: Sabrina Gillette DATE OF SERVICE: July 05, 2022 TIME: 1:38 PM PATIENT IDENTITY VERIFICATION COMPLETED USING TWO (2) IDENTIFIERS: Name and Date of confirmedby patient verbally. FALL SCREENING: Has the patient had 2 falls in the last year or 1 fall with injury or currently using an Ambulatory Assistive Device (Walker, Cane, Wheelchair, Crutches, etc.)? No PATIENT GENDER DATA: Male PATIENT RELEVANT IMPLANT DATA REVIEWED: Yes RADIOLOGY DEPARTMENT: General X-ray: Exam(s) Completed: Rib X-Ray: Right Spine X-Ray(s): Thoracic PERIPHERAL IV DATA: Not applicable SIGNED BY: RT Parviz(R) July 05, 2022 1:38 PM documented in this encounterFirelands Regional Medical Center11-22-2022 Miscellaneous Notes* Telephone Encounter - Georgette Pennington APRN.CNP - 02/02/2022 8:09 PM EST Patient identified by name and date of . I advised patient of positive Influenza A test and to continue taking the Tamiflu. He verbalized understanding. Georgette Pennington APRN.CNP documented in this encounterFirelands Regional Medical Center11-22-2022 History of Present illness Narrative* Georgette Pennington APRN.CNP - 02/02/2022 9:47 AM EST Subjective HPI Sabrina Gillette is a 56 year old male who presents with 2 days of fever, productive cough, nasal congestion, chest congestion, headache, chills, and body aches. His granddaughter was sick a few days ago-she tested negative for COVID. Sabrina did a home test for COVID which was negative. He has taken ibuprofen at home. Review of Systems Constitutional: Positive for chills and fever. HENT: Positive for congestion. Negative for ear pain and sore throat. Respiratory: Positive for cough and sputum production. Negative for shortness of breath. Cardiovascular: Negative for chest pain. Gastrointestinal: Negative for diarrhea, nausea and vomiting. Musculoskeletal: Positive for myalgias. Neurological: Positive for headaches. BP 132/72 Pulse 94 Temp (!) 39.1 C (102.4 F) Resp 18 Wt 88.9 kg (196 lb) SpO2 98% BMI 27.44 kg/m PAST MEDICAL HISTORY Diagnosis Date Anxiety Mental disorder Obstructive sleep apnea DME [employer] PAST SURGICAL HISTORY Procedure Laterality Date COLONOSCOPY FLX DX W/COLLJ SPEC WHEN PFRMD 08/22/2015 Colonoscopy ALLERGIES Patient has no known allergies. MEDICATIONS CPAP autoPAP 5-15 cmH2O, mask, tubing, filters, heated humidity, lifetime supplies. Dx: SUE oseltamivir (TAMIFLU) 75 mg capsule Take 1 capsule by mouth twice daily for 5 days. FAMILY HISTORY Problem Relation Age of Onset Cancer Mother pancreatic other (cancer) Mother Lung with met to brain Colon Cancer Father Social History Tobacco Use Smoking status: Never Smokeless tobacco: Never Substance Use Topics Alcohol use: No Drug use: No Objective Physical Exam Vitals and nursing note reviewed. Constitutional: Appearance: Normal appearance. HENT: Right Ear: Tympanic membrane, ear canal and external ear normal. Left Ear: Tympanic membrane, ear canal and external ear normal. Nose: Nose normal. Mouth/Throat: Mouth: Mucous membranes are moist. Pharynx: Oropharynx is clear. Uvula midline. No oropharyngeal exudate or posterior oropharyngeal erythema. Cardiovascular: Rate and Rhythm: Normal rate and regular rhythm. Heart sounds: Normal heart sounds. Pulmonary: Effort: Pulmonary effort is normal. No respiratory distress. Breath sounds: Normal breath sounds. No wheezing or rales. Musculoskeletal: Cervical back: Neck supple. Lymphadenopathy: Cervical: No cervical adenopathy. Skin: General: Skin is warm and dry. Findings: No erythema or rash. Neurological: Mental Status: He is alert. ASSESSMENT/PLAN: 1. Viral URI with cough - ICD9: 465.9, ICD10: J06.9 (primary diagnosis) - Discussed viral etiology and rationale for treatment. - Symptomatic treatment with prn analgesia - Supportive care with fluids and rest - COVID WITH FLUA+B, ROUTINE 2. Flu-like symptoms - ICD9: 780.99, ICD10: R68.89 - OSELTAMIVIR 75 MG CAPSULE- if test is negative you may stop this medication. - Follow-up with your PCP in 3-5 days if symptoms have not improved or sooner if symptoms worsen - Discussed red flags and need for immediate medical evaluation if any occur. - Discussed supportive care treatment with fluids, rest and analgesia. - Discussed expected course of illness Georgette Pennington APRN.NATALIA documented in this encounterFirelands Regional Medical Center11-22-2022 Instructions* Patient Instructions* Georgette Pennington APRN.CNP - 02/02/2022 9:45 AM EST ASSESSMENT/PLAN: 1. Viral URI with cough - ICD9: 465.9, ICD10: J06.9 (primary diagnosis) - Discussed viral etiology and rationale for treatment. - Symptomatic treatment with prn analgesia - Supportive care with fluids and rest - COVID WITH FLUA+B, ROUTINE 2. Flu-like symptoms - ICD9: 780.99, ICD10: R68.89 - OSELTAMIVIR 75 MG CAPSULE- if test is negative you may stop this medication. - Follow-up with your PCP in 3-5 days if symptoms have not improved or sooner if symptoms worsen - Discussed red flags and need for immediate medical evaluation if any occur. - Discussed supportive care treatment with fluids, rest and analgesia. - Discussed expected course of illness Georgette Pennington APRN.[facility] PATIENT INFO INFLUENZA INTRODUCTION Influenza (commonly called the flu) is a highly contagious illness that can occur in children or adults of any age. It occurs more often in the winter months because people spend more time in close contact with one another. The flu is spread easily from nhisuh-dg-hzpjjr by coughing, sneezing, or touching surfaces. Every year, complications of the flu require more than 200,000 people in the [place] to be hospitalized. Serious illness is more likely in the very young, older adults, women, and people who have certain health problems such as asthma or other forms of lung disease. There have been several widespread flu outbreaks (called pandemics), which led to the deaths of many people worldwide. These outbreaks occurred when new strains of influenza viruses formed (often from pigs or birds) and humans became infected because they had no immunity to these viruses. FLU SYMPTOMS Symptoms of seasonal flu can vary from person to person, but usually include: Fever (temperature higher than 100 F or 37.8 C) Headache and muscle aches Fatigue Cough and sore throat may also be present People with the flu usually have a fever for two to five days. This is different than fever caused by other upper respiratory viruses, which usually resolve after 24 to 48 hours. Some people have cold-like symptoms (runny nose, sore throat) during the flu while others have fever and muscle aches. Flu symptoms usually improve over two to five days, although the illness may last for a week or more. Weakness and fatigue may persist for several weeks Flu complications -- Complications of influenza occur in some people; pneumonia is the most common complication. Pneumonia is a serious infection of the lungs, and is more likely to occur in people over the age of 65, people who live in [employer] continuous [employer] care facilities (nursing homes), and those with other illnesses such as diabetes or conditions affecting the heart or lungs. FLU DIAGNOSIS Influenza is usually diagnosed based on symptoms (fever, cough and muscle aches). Lab testing for influenza is performed in certain cases, such as during a new influenza outbreak in a community. FLU TREATMENT When to seek help -- Most people with the flu recover within one to two weeks without treatment. However, serious complications of the flu can occur. Call your doctor or nurse immediately if: You feel short of breath or have trouble breathing You have pain or pressure in your chest or stomach You have signs of being dehydrated, such as dizziness when standing or not passing urine You feel confused You cannot stop vomiting or you cannot drink enough fluids There are several groups of people who are at increased risk for flu complications. These include women, young children (<5 years of age, and especially <2 years of age), people ?65 years of age, and people with certain diseases such as chronic lung disease (such as asthma), heart disease, diabetes, immunosuppressing conditions (such as HIV infection or transplantation), and some other diseases. If you or your child has flu symptoms and is at increased risk of flu complications, you should call your healthcare provider. Treat symptoms -- Treating the symptoms of influenza can help you to feel better, but will not makethe flu go away faster. Rest until the flu is fully resolved, especially if the illness has been severe Fluids -- Drink enough fluids so that you do not become dehydrated. One way to placing judge if you are drinking enough is to look at the color of your urine. Normally, urine should be light yellow to nearlycolorless. If you are drinking enough, you should pass urine every three to five hours. Acetaminophen (such as Tylenol and other brands) can relieve fever, headache, and muscle aches. Aspirin, and medicines that include aspirin (eg, bismuth subsalicylate; PeptoBismol), are not recommended for children under 18 because aspirin can lead to a serious disease called Jessica syndrome. Cough medicines are not usually helpful; cough usually resolves without treatment. We do not recommend cough or cold medicine for children under age six years. Antiviral treatment -- Antiviral medicines can be used to treat or prevent influenza. When used as a treatment, the medicine does not eliminate flu symptoms, although it can reduce the severity and duration of symptoms by about one day. Not every person with influenza needs an antiviral medicine; the decision is based upon your risk of developing complications of influenza. Antiviral treatment is most effective for seasonal influenza when it is taken within the first 48 hours of flu symptoms. Side effects -- Zanamivir and oseltamivir can cause mild side effects, including nausea and vomiting; zanamivir, which is inhaled, can cause difficulty breathing in some cases. Most people are able to continue the medicine despite the side effects. Antibiotics -- Antibiotics are NOT useful for treating viral illnesses such as influenza. Antibiotics should only used if there is a bacterial complication of the flu such as bacterial pneumonia, earinfection, or sinusitis. Antibiotics can cause side effects and lead to development of antibiotic resistance. documented in this encounterFirelands Regional Medical Center08-09-2022 Miscellaneous Notes* Telephone Encounter - Baliee Braswell Ma - 10/20/2021 1:28 PM EDT Request completed and faxed 10/14/2021. Confirmed and filed. Bailee Braswell Ma * Telephone Encounter - Bailee Braswell Ma - 10/14/2021 2:28 PM EDT Type of letter/form/fax request - Medical Ne[facility]ity [facility] and placed on [facility] Jos Lutz's desk for completion. Completed form needs to be faxed to [phone]. Route to [place] when form completed for processing documented in this encounterFirelands Regional Medical Center06-10-2016 History of Past illness Narrative* Problem Noted Date Resolved Date Colon cancer screening 08/22/2015 6 documented as of this encounter (statuses as of 10/20/2021) [facility] History of Past illness Narrative* Problem Noted Date Resolved Date Colon cancer screening 08/22/2015 6 documented as of this encounter (statuses as of 02/02/2022) [facility] History of Past illness Narrative* Problem Noted Date Resolved Date Colon cancer screening 08/22/2015 6 documented as of this encounter (statuses as of 02/03/2022) [facility] History of Past illness Narrative* Problem Noted Date Resolved Date Colon cancer screening 08/22/2015 6 documented as of this encounter (statuses as of 07/06/2022) [facility] History of Past illness Narrative* Problem Noted Date Resolved Date Colon cancer screening 08/22/2015 6 documented as of this encounter (statuses as of 07/06/2022) [facility] note* Diagnosis Viral URI with cough- Primary Acute upper respiratory infections of unspecified site Flu-like symptoms Other general symptoms documented in this encounter [facility] note* Diagnosis Acute right-sided thoracic back pain- Primary [facility] Diagnosis Acute right-sided thoracic back pain documented in this encounter [facility] note* Diagnosis SUE on CPAP- Primary Obstructive sleep apnea (adult) (pediatric) documented in this encounter [facility] note* Diagnosis Encounter for medical examination to establish care- Primary Screening for hypercholesterolemia Screening for lipoid disorders Special screening examination for viral disease Special screening examination for unspecified viral disease Encounter for screening examination for other mental health and behavioral disorders Screening for HIV (human immunodeficiency virus) Special screening examination for other specified viral diseases Screening for depression Encounter for immunization Need for other specified prophylactic vaccination against single bacterial disease Chest pain in adult Change in bowel habits Other symptoms involving digestive system SUE (obstructive sleep apnea) Obstructive sleep apnea (adult) (pediatric) documented in this encounter [facility]* Diagnosis Chest pain in adult documented [facility] this encounter [facility]* Diagnosis Family history of colon cancer- Primary Family history of malignant neoplasm of gastrointestinal tract Change in bowel habits Other symptoms involving digestive system Personal history of colon polyps, unspecified documented in this encounter [facility] note* Diagnosis Encounter for screening colonoscopy- Primary Special screening for malignant neoplasms, colon Screen for colon cancer Special screening for malignant neoplasms, colon documented in this encounter [facility] noteNo assessment information availableSutter Medical [facility] Work Phone: [facility] for referral (narrative)* Diagnostic Procedure Only (Urgent) - Closed Specialty Diagnoses / Procedures Referred By Contac t Referred To Contact XR IMAGING Diagnoses Acute right-sided thoracic back pain Procedures XR THORACIC GENERAL 3V AP/LAT/SWIMMERS RADEX SPINE THORACIC 3 VIEWS Carmela Forbes PA-C [address] [place] [address] Xr Imaging Referral ID Status Reason Start Date Expiration Date V isits Requested Visits Authorized [id number] Closed Auto-Generate d Referral 07/05/2022 08/04/2023 1 1 * Diagnostic Procedure Only (Urgent) - Closed Specialty Diagnoses / Procedures [facility] XR IMAGING Diagnoses Acute right-sided thoracic back pain Procedures XR RIBS/CHEST 3V AP RIB/OBLS/CXR RIGHT RADEX RIBS UNI W/POSTEROANT CH MINIMUM 3 VIEWS Carmela Forbes PA-C [address] [place] [address] Xr Imaging Referral ID Status Reason Start Date Expiration Date V isits Requested Visits Authorized [id number] Closed Auto-Generate d Referral 07/05/2022 08/04/2023 1 1 [facility] for referral (narrative)* Diagnostic Procedure Only (Urgent) - Closed Specialty Diagnoses / Procedures [facility] To Contact XR IMAGING Diagnoses Acute right-sided thoracic back pain Procedures XR THORACIC GENERAL 3V AP/LAT/SWIMMERS RADEX SPINE THORACIC 3 VIEWS Carmela Forbes PA-C [address] [place] [address] [place] [id number] Referral ID Status Reason Start Date Expiration Date V isits Requested Visits Authorized [id number] Closed Auto-Generate d Referral 07/05/2022 08/04/2023 1 1 * Diagnostic Procedure Only (Urgent) - Closed Specialty Diagnoses / Procedures Referred By Contac t Referred To Contact XR IMAGING Diagnoses Acute right-sided thoracic back pain Procedures XR RIBS/CHEST 3V AP RIB/OBLS/CXR RIGHT RADEX RIBS UNI W/POSTEROANT CH MINIMUM 3 VIEWS Carmela Forbes PA-C [address] [place] [address] [place] [id number] Referral ID Status Reason Start Date Expiration Date V isits Requested Visits Authorized [id number] Closed Auto-Generate d Referral 07/05/2022 08/04/2023 1 1 [facility] for referral (narrative)No reason for referral information availableNorth [facility] Work Phone: Reason for visit Narrative* Diagnostic Procedure Only (Urgent) - Closed Specialty Diagnoses / Procedures Referred By Contac t Referred To Contact XR IMAGING Diagnoses Acute right-sided thoracic back pain Procedures XR THORACIC GENERAL 3V AP/LAT/SWIMMERS RADEX SPINE THORACIC 3 VIEWS Carmela Forbes PA-C [address] [place] [address] [place] [address] Referral ID Status Reason Start Date Expiration Date V isits Requested Visits Authorized [id number] Closed Auto-Generate d Referral 07/05/2022 08/04/2023 1 1 [facility] for visit Narrative* Outpatient Procedure (Routine) - Closed Specialty Diagnoses / Procedures Referred By Contac t Referred To Contact [facility] Diagnoses Screen for colon cancer Procedures COLONOSCOPY SCREENING COLONOSCOPY FLX DX W/COLLJ SPEC WHEN Renetta Sorenson APRN.INFORMATICS PHYSICIAN LIAISON [address] [place] [address] Phone: tel: fax: [facility] [address] [place] [address] Referral ID Status Reason Start Date Expiration Date V isits Requested Visits Authorized [id number] Closed Auto-Generate d Referral 08/02/2024 08/02/2025 1 1 [facility] Concerns Infection Onset Date Last Indicated Resolved Time COVID-19 Rule-Out 02/02/2022 02/02/2022 02/02/2022 7:41 PM EST Summary Purpose Family History No Family History Records Found Relationship Condition Age at Onset Recorded Date/T xenia Not Specified Malignant neoplasm of skin Unknown Malignant neoplasm of colon Unknown Alcoholism Unknown Anemia Unknown Arthritis Unknown Malignant neoplasm of lung Unknown Malignant neoplasm Unknown Advance Directives No Advanced Directives Records Found Advance Directive Response Recorded Date/ Time Advance Directives No January 4:12pm Chief Complaint and Reason for Visit Chief Complaint Admit Date MYXOID CYST October 11, 2024 2:15 pm Chief Complaint Admit Date MYXOID CYST October 11, 2024 2:15 pm EORDERS October 11, 2024 2:49 pm Reason for Visit Admit Date Mucous cyst of finger October 11, 2024 2: 15pm Additional Source Comments Source Comments (unrecognize d section and content) In the event this informatio n is protected by the Federal Confidentiality of Alcohol and Drug Abuse Patient Records regulations: The Federal rules restrict any use of the information to criminally investigate or prosecute any alcohol or drug abuse patient.[facility] CenterIn the event this information is protected by the Federal Confidentiality of Alcohol and Drug Abuse Patient Records regulations: The Federal rules restrict any use of the information to criminally investigate or prosecute any alcohol or drug abuse patient.[facility] CenterIn the event this information is protected by the Federal Confidentiality of Alcohol and Drug Abuse Patient Records regulations: The Federal rules restrict any use of the information to criminally investigate or prosecute any alcohol or drug abuse patient.[facility] CenterIn the event this information is protected by the Federal Confidentiality of Alcohol and Drug Abuse Patient Records regulations: The Federal rules restrict any use of the information to criminally investigate or prosecute any alcohol or drug abuse patient.[facility] CenterIn the event this information is protected by the Federal Confidentiality of Alcohol and Drug Abuse Patient Records regulations: The Federal rules restrict any use of the information to criminally investigate or prosecute any alcohol or drug abuse patient.[facility] CenterIn the event this information is protected by the Federal Confidentiality of Alcohol and Drug Abuse Patient Records regulations: The Federal rules restrict any use of the information to criminally investigate or prosecute any alcohol or drug abuse patient.[facility] CenterIn the event this information is protected by the Federal Confidentiality of Alcohol and Drug Abuse Patient Records regulations: The Federal rules restrict any use of the information to criminally investigate or prosecute any alcohol or drug abuse patient.[facility] CenterIn the event this information is protected by the Federal Confidentiality of Alcohol and Drug Abuse Patient Records regulations: The Federal rules restrict any use of the information to criminally investigate or prosecute any alcohol or drug abuse patient.[facility] CenterIn the event this information is protected by the Federal Confidentiality of Alcohol and Drug Abuse Patient Records regulations: The Federal rules restrict any use of the information to criminally investigate or prosecute any alcohol or drug abuse patient.[facility] CenterIn the event this information is protected by the Federal Confidentiality of Alcohol and Drug Abuse Patient Records regulations: The Federal rules restrict any use of the information to criminally investigate or prosecute any alcohol or drug abuse patient.[facility] CenterIn the event this information is protected by the Federal Confidentiality of Alcohol and Drug Abuse Patient Records regulations: The Federal rules restrict any use of the information to criminally investigate or prosecute any alcohol or drug abuse patient.[facility] CenterIn the event this information is protected by the Federal Confidentiality of Alcohol and Drug Abuse Patient Records regulations: The Federal rules restrict any use of the information to criminally investigate or prosecute any alcohol or drug abuse patient.[facility] CenterIn the event this information is protected by the Federal Confidentiality of Alcohol and Drug Abuse Patient Records regulations: The Federal rules restrict any use of the information to criminally investigate or prosecute any alcohol or drug abuse patient.[facility] CenterIn the event this information is protected by the Federal Confidentiality of Alcohol and Drug Abuse Patient Records regulations: The Federal rules restrict any use of the information to criminally investigate or prosecute any alcohol or drug abuse patient.[facility] CenterIn the event this information is protected by the Federal Confidentiality of Alcohol and Drug Abuse Patient Records regulations: The Federal rules restrict any use of the information to criminally investigate or prosecute any alcohol or drug abuse patient.[facility] CenterIn the event this information is protected by the Federal Confidentiality of Alcohol and Drug Abuse Patient Records regulations: The Federal rules restrict any use of the information to criminally investigate or prosecute any alcohol or drug abuse patient.[facility] CenterIn the event this information is protected by the Federal Confidentiality of Alcohol and Drug Abuse Patient Records regulations: The Federal rules restrict any use of the information to criminally investigate or prosecute any alcohol or drug abuse patient.[facility] CenterIn the event this information is protected by the Federal Confidentiality of Alcohol and Drug Abuse Patient Records regulations: The Federal rules restrict any use of the information to criminally investigate or prosecute any alcohol or drug abuse patient.[facility] CenterIn the event this information is protected by the Federal Confidentiality of Alcohol and Drug Abuse Patient Records regulations: The Federal rules restrict any use of the information to criminally investigate or prosecute any alcohol or drug abuse patient.[facility] CenterIn the event this information is protected by the Federal Confidentiality of Alcohol and Drug Abuse Patient Records regulations: The Federal rules restrict any use of the information to criminally investigate or prosecute any alcohol or drug abuse patient.[facility] Reason for Visit (unrecogniz ed section and content) Reason Comments CMN-- PAP supplies [facility] Reason Comments Chest Congestion cough, headache, chi lls x 2 days Reason Comments Results Reason Comments Back Pain Back pain fell x 1 w [place] Reason Comments Orders Received fax from Gaudencio calixto at [facility] requesting signed office note and a signature on the CMN. Requests faxed to Sleep Medicine at [facility], per provider request. Reason Comments Orders Received faxed CPAP Rx from Mamta alicea [facility]. Most recent e-signed office note included. Placed on Jos's desk for signature and review. Reason Comments Orders Faxed e-signed offic e note back to [facility]. CPAP Rx unsigned as patient has not been seen since July 2019. Patient contacted to schedule appointment. Reason Comments Orders Reason Comments New Patient Evaluation Reason Comments OV Notes Reason Comments Establish Care Reason Comments Consult Change in bowel habi ts, More constipated than usual, past six months. Specialty Diagnoses / Procedures Referred By Liliana hankins Referred To Contact General Surgery Diagnoses Change in bowel habits Procedures CONSULT TO GENERAL SURGERY OFFICE/OUTPATIENT MINDY URRUTIA 60 MINUTES Podlogar, NATE Adams.NATALIA [address] [place] [address] Phone: tel: fax: Referral ID Status Reason Start Date Expiration Date V isits Requested Visits Authorized [id number] Closed PCP Requested Referral 07/16/2024 07/16/2025 1 1 Reason Comments Reminder Call Care Teams (unrecognized sec tion and content) Case Picker Relationship Specialty Start Date End Date Antionette Rodney PA-C [address] [place] [address] PCP - General Family Practice 08/22/15 Case Picker Relationship Specialty Start Date End Date Antionette Rodney PA-C [address] [place] [address] PCP - General Family Medicine 08/22/15 Case Picker Relationship Specialty Start Date End Date Antionette Rodney PA-C [address] [place] [address] PCP - General Family Medicine 08/22/15 Case Picker Relationship Specialty Start Date End Date Antionette Rodney PA-C [address] [place] [address] PCP - General Family Medicine 08/22/15 Case Picker Relationship Specialty Start Date End Date Antionette Rodney PA-C [address] [place] [address] PCP - General Family Medicine 08/22/15 Case Picker Relationship Specialty Start Date End Date Antionette Rodney PA-C [address] [place] [address] PCP - General Family Medicine 08/22/15 Case Picker Relationship Specialty Start Date End Date Antionette Rodney PA-C [address] [place] [address] PCP - General Family Medicine 08/22/15 Case Picker Relationship Specialty Start Date End Date Antionette Rodney PA-C [address] [place] [address] PCP - General Family Medicine 08/22/15 11/01/23 Case Picker Relationship Specialty Start Date End Date Genia Hernández MD [address] [place] [address] PCP - General Family Medicine 07/16/24 Podlogar, NATE Adams.INFORMATICS PHYSICIAN LIAISON [address] [place] [address] Family Medicine 07/16/24 Case Picker Relationship Specialty Start Date End Date Genia Hernández MD [address] [place] [address] PCP - General Family Medicine 07/16/24 Podlogar, NATE Adams.INFORMATICS PHYSICIAN LIAISON [address] [place] [address] Family Medicine 07/16/24 Case Picker Relationship Specialty Start Date End Date Genia Hernández MD [address] [place] [address] PCP - General Family Medicine 07/16/24 Podlogar, NATE Adams.INFORMATICS PHYSICIAN LIAISON [address] [place] [address] Family Medicine 07/16/24 Case Picker Relationship Specialty Start Date End Date Genia Hernández MD [address] [place] [address] PCP - General Family Medicine 07/16/24 Podlogar, Angie, STORE OPERATIONS ASSOCIATE.INFORMATICS PHYSICIAN LIAISON [address] [facility] [place] [address] Family Medicine 07/16/24 Case Picker Relationship Specialty Start Date End Date Genia Hernández MD [address] [place] [address] PCP - General Family Medicine 07/16/24 Podlogar, Angie, STORE OPERATIONS ASSOCIATE.INFORMATICS PHYSICIAN LIAISON [address] [place] [address] Family Medicine 07/16/24 Podlogar, Angie, STORE OPERATIONS ASSOCIATE.INFORMATICS PHYSICIAN LIAISON [address] [place] [address] Janitor Caretaker Family Medicine 07/30/24 Case Picker Relationship Specialty Start Date End Date Genia Hernández MD [address] [place] [address] PCP - General Family Medicine 07/16/24 Podlogar, Angie, STORE OPERATIONS ASSOCIATE.INFORMATICS PHYSICIAN LIAISON [address] [facility] [place] [address] Family Medicine 07/16/24 Podlogar, Angie, STORE OPERATIONS ASSOCIATE.INFORMATICS PHYSICIAN LIAISON [address] [facility] [place] [address] Janitor Caretaker Family Medicine 07/30/24 Betzaida Rai APRN.INFORMATICS PHYSICIAN LIAISON [address] [facility], [place] [address] [facility] 08/23/24 Case Picker Relationship Specialty Start Date End Date Genia Hernández MD [address] [facility], [place] [id number] PCP - General Family Medicine 07/16/24 PodlogarAngie, STORE OPERATIONS ASSOCIATE.INFORMATICS PHYSICIAN LIAISON [address] [place] [address] Family Medicine 07/16/24 Podlogar, Angie, STORE OPERATIONS ASSOCIATE.INFORMATICS PHYSICIAN LIAISON [address] [facility], [place] [address] Janitor Caretaker Family Medicine 07/30/24 Betzaida Rai, STORE OPERATIONS ASSOCIATE.INFORMATICS PHYSICIAN LIAISON [address] [place], [place] [address] Janitor Caretaker [facility] 08/23/24 Team Status: Inactive Member Role/Relationship Status Dates Dr. Jeet Monge MD Attending Provider Active Start: October 11, 2024 End: October 11, 2024 Team Status: Active Member Role/Relationship Status Dates No Primary Care Physician Primary Care Provider Active Team Status: Inactive Member Role/Relationship Status Dates Dr. Jeet Monge MD Attending Provider Active Start: October 11, 2024 End: October 11, 2024 Team Status: Inactive Member Role/Relationship Status Dates No Primary Care Physician Primary Care Provider Active Start: October 11, 2024 End: October 11, 2024 Dr. Jeet Monge MD Attending Provider Active Start: October 11, 2024 End: October 11, 2024 Dr. Jeet Monge MD Referring Provider Active Start: October 11, 2024 End: October 11, 2024 (unrecognized sect ion and content) No Status Records FoundNo Status Records FoundNo Status Records Found INFORMATION SOURCE (unrecogn ized section and content) DATE CREATED AUTHOR 08/01/2024 [facility] DATE CREATED AUTHOR AUTHOR'S ORGANIZ ATION 10/01/2024 [facility] DATE CREATED AUTHOR AUTHOR'S ORGANIZ ATION 10/29/2024 [facility] Goals (unrecognized section and content) Goals may be documented in a n alternate sectionGoals may be documented in an alternate section FOR RECORDS PERTAINING TO PATIENTS WHO ARE OR HAVE BEEN ENROLLED IN A CHEMICAL DEPENDENCY/SUBSTANCEABUSE PROGRAM, SOME INFORMATION MAY BE OMITTED. This clinical summary was aggregated from multiple sources. Caution should be exercised in using it in the provision of clinical care. This summary normalizes information from multiple sources, and as a consequence, information in this document may materially change the coding, format and clinical context of patient data. In addition, data may be omitted in some cases. CLINICAL DECISIONS SHOULD BE BASED ON THE PRIMARY CLINICAL RECORDS. [facility] [employer] provides no warranty or guarantee of the accuracy or completeness of information in this document.
--- NOTE | 2024-10-31 07:19 | HP.PCM.SX_ITS ---
HPI - General HPI Narrative SABRINA GILLETTE, is a 59 M who presents with right index finger mucous cyst. I marked it in pre-op holding Current Encounter (DATE OF SURGERY H&P UPDATE): I saw and examined the patient this morning in pre-operative holding. We discussed risks and benefits of today's surgery and they would like to proceed. NO CHANGE in health history since last seen and evaluated. Ready to proceed with surgery. REPLACED BY [facility] Medical History Wears glasses Non-smoker CPAP (continuous positive airway pressure) dependence Sleep apnea History of stress test Arthritis Home Medications ?Medication ?Instructions ?Recorded ?Last Taken ?Type NK 10/19/24 Unknown History Allergy/AdvReac Type Severity Reaction Status Date / Time No Known Allergies Allergy Verified 10/19/24 13:37 Family History Other Alcoholism Anemia Arthritis Cancer Colon cancer Lung cancer Skin cancer Surgical History Hx of colonoscopy Social History Smoking Status: Never smoker alcohol intake: never substance use type: does not use additional social history: pt denies vaping, denies edibles, denies marijuana use, denies aspirin and ibuprofen use does not have family history of blood clots Physical Exam Narrative Right Upper Extremity Inspection: Right index finger dorsal mucous cyst, no drainage observed. Viable skin over the cyst. Transilluminates. Masses over the DIP joint. no collateral ligament instability Palpation: No mallet finger Motor: Able to bend and extend all MP, PIP, and DIP joints. Sensory: Intact to light touch on the radial and ulnar borders. Vascular: Finger tips are warm and well perfused with greater than 2 second capillary refill Assessment & Plan Assessment/Plan (1) Mucous cyst of finger: PLAN: INTERVAL H&P PLAN, DATE OF SURGERY: We will proceed with surgery today. I talked to the patient extensively about the risks of surgery, including bleeding, infection, damage to surrounding structures, poor scaring, surgical site dehiscence and wound formation, need for wound care, need for repeat operations, failure to obtain the desired result, DVT/PE, and the risks of anesthesia including , including stroke (from low blood pressure/ischemia or clot). The benefits and alternatives of this surgery were also discussed. All of their questions were answered, and they agreed to proceed with surgery. Plan for sedation and local, with excision in the operating room I talked the patient about the potential for excision and rotation flap (rota tion flap having the risk of necrosis and need for wound care reconstruction). I also talked to him about DIP joint incision dorsally with debridement of the osteophytes and debridement of the cyst stalk with plan for involution of the cyst over time, which I think is the best option to start with. He understands the risks of cyst recurrence. CPT codes for insurance prior authorization are as follows: 39994, [id number]
[2024-10-31] MEDS: Lactated Ringers 1,000 ML 15 ML IV (07:46)
--- NOTE | 2024-10-31 08:02 | PCM.PRE.AN2 ---
ASA Classification* ASA Classification ASA Classification: 2 Assessment & Plan Anesthesia* Anesthesia Assessment Anesthesia Assessment: Discussed sedation and/or anesthesia options, risks, benefits, and alternatives with patient/parents/legal guardian/POA. Questions invited. The patient/parents/legal guardian/POA seems to understand and agrees to proceed with anesthesia plan. Reviewed the physical assessment, medical history, allergy history and patient home medications list prior to surgery/procedure/anesthetic and documented any changes. Performed airway and anesthesia risk assessments. Anesthesia Type Anesthesia Type: MAC History Source History Obtained from:: Patient and Chart Anesthesia Focused Assessment* Temperature: 97.0 F Pulse Rate: 52 Blood Pressure: 152/92 Respiratory Rate: 18 Pulse Ox: 100 Oxygen Delivery Method: Room Air Airway Assessment Mouth opens: >3 cm Mallampati Score: III Teeth Condition: Intact Neck Range of motion (ROM): Full ROM Labs Anesthesia Preop lab: CBC WBC 6.1 K/mm3 (4.4-11.0) 01/23/13 15:36 01/23/13 RBC 4.52 M/mm3 (4.6-6.2) L 01/23/13 15:36 01/23/13 Hgb 13.8 g/dl (13.0-16.5) 01/23/13 15:36 01/23/13 Hct 40.6 % (40-54) 01/23/13 15:36 01/23/13 Plt Count 191 K/mm3 (150-450) 01/23/13 15:36 01/23/13 CHEMISTRY COAG Pre-Assessment Diagnosis/Proposed Procedure Planned Operative Procedure(s): (L) Left index finger mucous cyst excision Anesthesia History Anesthesia History - emissions engineer: Anesthesia History - emissions engineer Hx Hospitalization No 10/19/24 13:42 Any Problems With Anesthesia No 10/19/24 13:42 Cholinesterase deficiency No 10/19/24 13:42 You/Your Family Experience No 10/19/24 13:42 fever (hyperthermia) with Relationship Recent Exposure to Contagious No 10/31/24 07:28 Disease Does patient have nerve No 10/19/24 13:42 stimulator Patient instructed to have device shut off --Does patient have Pacemaker No 10/31/24 07:28 or ICD? When Was Last Pacemaker Check QUESTION #4 FULL TEXT: You/Your Family Experience fever (hyperthermia) with Anesthesia Last Oral Intake Last Oral intake: Last Oral Intake NPO since 18:00 10/31/24 07:28 Meds taken in AM with sips of No 10/31/24 07:28 water? Meds patient instructed to take am of surgery PONV PONV - emissions engineer: PONV - emissions engineer Female No 10/19/24 13:42 HX of Motion Sickness No 10/19/24 13:42 HX of N/V After Surgery No 10/19/24 13:42 Non-Smoker Yes 10/19/24 13:42 Duration of Surgery greater No 10/19/24 13:42 than 60 minutes Number of Risk Factors 1 10/19/24 13:42 PONV Score Low Risk 10/19/24 13:42 Height & Weight Height & Weight: Anesthesia: Height & Weight Height 5 ft 11 in 10/31/24 07:28 Weight: 88 kg 10/31/24 07:28 Body Mass Index (BMI) 27.0 10/31/24 07:28 Respiratory Assessment Respiratory Assessment - emissions engineer: Respiratory Tract Infection Hx - emissions engineer Hx Respiratory Tract Infection No 10/19/24 13:42 STOP Sleep Apnea STOP Sleep Apnea - emissions engineer: STOP Sleep Apnea - emissions engineer Hx Hypertension No 10/19/24 13:42 Hx Sleep Apnea Yes 10/19/24 13:42 CPAP Yes 10/19/24 13:42 BIPAP No 10/19/24 13:42 Do you snore loudly (louder than talking or can be heard Do you often feel tired/ fatigued/ sleepy during daytime? Has anyone observed you stop breathing during sleep? STOP Results Positive 10/19/24 13:42 QUESTION #5 FULL TEXT : Do you snore loudly (louder than talking or can be heard through closed doors)? Tobacco Use History Tobacco Use History - emissions engineer: Tobacco Use History - emissions engineer Tobacco Use Smoking Status Never smoker 10/19/24 13:42 Hx Tobacco Use No 10/19/24 13:42 Years Smoking Packs Smoked per Day Smoking Cessation Date was within the last 15 years Hx Smoking Cessation Date Hx Smoking Cessation Counseling Hematologic Medial History Hematologic Hx - emissions engineer: Hematologic Medical Hx - clinical documentation clerk Hx of Blood Transfusion No 10/19/24 13:42 Hx of Transfusion in last 3 No 10/19/24 13:42 Months Date of Last Transfusion (if within last 3 months) Ever experience any problems No 10/19/24 13:42 with transfusion(s)? Specify any problems Hx of Preganancy in last 3 N/A 10/19/24 13:42 Months Nurse Filling Out Transfusion TJ 10/19/24 13:42 & Questions: Date: 10/19/24 10/19/24 13:42 Time: 13:43 10/19/24 13:42 Patient unable to answer at this time (ie. confused, unrespo /Reproduction History /Reproductive History - emissions engineer: /Reproductive Hx- emissions engineer Hx Now No 10/19/24 13:42 Gestational Age (in weeks): EDC: Hx Hx Para Hx Section SAB No 10/19/24 13:42 Active Medications Active Medications: Current Medications Generic Name Dose Route Start Last Admin Trade Name Freq PRN Reason Stop Dose Admin Cefazolin Sodium 2 gm/ Sodium 110 mls @ 200 mls/hr 10/31/24 08:45 Chloride IV 10/31/24 09:17 INTRAOP ONE Lactated Ringer's 1,000 mls @ 15 mls/hr 10/31/24 07:15 10/31/24 07:46 IV 15 mls/hr .Q48H BRICE Administration PFSH Medical History Wears glasses Non-smoker CPAP (continuous positive airway pressure) dependence Sleep apnea History of stress test Arthritis Home Medications ?Medication ?Instructions ?Recorded ?Last Taken ?Type NK 10/19/24 Unknown History doxycycline hyclate 100 mg capsule 100 mg PO BID 7 days #14 caps 10/31/24 Unknown Rx oxycodone 5 mg tablet 5 mg PO Q12H PRN pain 5 days #10 10/31/24 Unknown Rx tabs Allergy/AdvReac Type Severity Reaction Status Date / Time No Known Allergies Allergy Verified 10/31/24 07:27 Family History Other Alcoholism Anemia Arthritis Cancer Colon cancer Lung cancer Skin cancer Surgical History Hx of colonoscopy Social History Smoking Status: Never smoker alcohol intake: never substance use type: does not use additional social history: pt denies vaping, denies edibles, denies marijuana use, denies aspirin and ibuprofen use does not have family history of blood clots Review of Systems (Anesthesia) ROS Narrative System reviewed and no additional complaints, except as documented.
--- NOTE | 2024-10-31 08:45 | CYST_PTH ---
PATIENT: SABRINA GILLETTE LOC: [facility] [place] U#:[id number] AGE/SX: 59/M ROOM: RE10/31/[address]: Dr. Jeet Monge MD : 1965 BED: DIS: 10/31/2024 SPEC #: [id number] RECD: 10/31/24 10:34 STATUS: MARIBELL REKuldeep #: [id number] KEREN: 10/31/24 08:[address]: Jeet Monge DEPT: SURGICAL PATHOLOGY RECD BY: Kamaljit Mtz ENTERED: 10/31/24 10:59 SP TYPE: Cyst OTHR DR: Dr. Medardo Hernández MD Tissues: A - CYST Procedures: Surgery Specimen Level IV HEADER OPERATION: Right index finger mucous cyst excision PRE-OP DIAGNOSIS: Right index finger mucous cyst TISSUE SUBMITTED: A- Mucous cyst right index finger MICROSCOPIC DIAGNOSIS A. Soft tissue, right index finger, excisional biopsy: - Fibrous tissue consistent with dermis containing a collapsed muscular blood vessel. MICROSCOPIC DESCRIPTION Slides are reviewed. GROSS DESCRIPTION A. Received in formalin labeled with the patient's name and date of . Designated as mucous cyst right index finger is a 0.4 x 0.3 x 0.1 cm pink-red shaggy tissue fragment. Entirely submitted in 1 cassette. PR 10/31/2024 CPT:[id number]
[2024-10-31] MEDS: Midazolam 2 MG/2 ML Syringe IV (08:50)
[2024-10-31] MEDS: Cefazolin 1 GM/5 ML Vial 2 GM IV (08:51)
[2024-10-31] MEDS: fentaNYL 100 MCG/2 ML Ampul 50 MCG IV (08:51)
[2024-10-31] MEDS: Lidocaine 1% (5 ml sdv) 5 ML Vial IV (08:55)
[2024-10-31] MEDS: Bupiv/Epi 0.25% 30 ML Vial (09:16)
[2024-10-31] MEDS: Lidocaine 1% (30 ml sdv) 30 ML Vial (09:17)
--- NOTE | 2024-10-31 09:32 | PCM.POST.ANE ---
Anesthesia: Postop Eval I Current Vital Signs Temperature: 97 F Pulse Rate: 62 Blood Pressure: 124/92 Respiratory Rate: 16 Pulse Ox: 96 Oxygen Delivery Method: Room Air Assessment Airway patent: Yes Spontaneous unlabored respirations: Yes Mental status: Awake and Calm nausea: No Vomiting: No Anesthesia Complication: No Fluid Hydration Crystalloid volume administer (ml): 700 Total IV fluid infused: 700 Progress Note Anesthesia document: Postop Eval 1 completed: Yes
--- NOTE | 2024-10-31 09:59 | PCM.OPRPT ---
Problems Associated Problem List Diagnoses (1) Mucous cyst of finger: Operative Report (Standard) Operative Information Date of Procedure: 10/31/24 Pre-Operative Diagnosis: Right index finger mucous cyst Post-Operative Diagnosis: Same Surgery/Procedure Performed: 1) excision right index finger mucous cyst doubler operator: No Type of Anesthesia: Local MAC (7 cc of a 50/50 mixture of 0.25% Marcaine and 1% lidocaine ) RN Documented Start/Stop Times: Operation Date: 10/31/24 08:45 Case Time Into Pre-Op 10/31/24 07:09 Out of Pre-Op 10/31/24 08:30 Anesthesia Start 10/31/24 08:31 Into Room 10/31/24 08:31 Procedure Start 10/31/24 09:00 Procedure End 10/31/24 09:23 Anesthesia End 10/31/24 09:27 Out of Room 10/31/24 09:27 Into Recovery 10/31/24 09:30 Out of Recovery 10/31/24 09:45 Into Phase II Recovery 10/31/24 09:46 Out of Phase II 10/31/24 11:12 Procedure Start Time: 09:00 Procedure Stop Time: 09:23 Select all DRAINS/GRAFTS/IMPLANTS that apply: None Estimated Blood Loss: minimal Specimen collected: Yes Description of specimen(s) removed: Mucous cyst stock Description of surgery: INDICATIONS: Patient is a 59YO M with history of a mucous cyst on the right index finger. Presents today for excision of the cyst. I talked the patient extensively about the risks of surgery, including bleeding, infection (especially of the DIP joint), damage to surrounding structures (including mallet deformity, lateral joint instability with collateral ligament injury), surgical site dehiscence and wound formation, need for wound care, need for repeat operations, failure to obtain the desired result (return of the cyst), and the risks of anesthesia. All of their questions were answered, and they agreed to proceed with surgery. OPERATIVE DETAILS: Patient was correctly identified in preoperative holding and the correct mucous cyst and digit were marked with the patient in agreement. They were taken back to the operating room where they are administered MAC/local for anesthesia. They were prepped and draped in sterile fashion. All proper timeouts were performed. We began the procedure by making a transverse incision over the DIP joint of the right index finger (RIF). Care was taken to preserve the terminal slip. The cyst stalk was excised beneath the cyst skin with a curette, and the joint was examined for osteophytes/spurs lateral to and underneath the terminal slip (care was taken to protect the terminal slip), and any existing osteophytes in this location were debrided with a curette. The cyst was proximal to the incision. The contents that were removed with the curette (cyst synovial fluid and cyst wall) were sent to pathology. The wound was then washed out with copious amounts of normal saline and Irrisept. The cyst skin was left in place to involute over time. Hemostasis was obtained with bipolar electrocautery and 10 cc of topical 0.25% Marcaine with 1:200,000 epinephrine. The incision was then closed with 4-0 Nylon suture vertical mattresses. A Xeroform, Kerlix, and AlumaFoam splint with Coban (DIP joint immobilized in extension, PIP joint free) were then placed for dressing. The patient was awakened and taken to the PACU in stable condition. Surgical Findings: Cyst involuted Complications Complications: No
--- NOTE | 2024-10-31 10:18 | POSTOPAN2_ITS ---
Anesthesia Postop Eval I Sum Postop Eval Completion status Anesthesia document: Postop Eval 1 completed: Yes Anesthesia Postop Eval I Summary Anesthesia Postop Eval I Summary: Anesthesia Postop Eval I: Assessment Summary Airway patent Yes 10/31/24 09:34 [email or web address] [email or web address] Spontaneous unlabored Yes 10/31/24 09:34 RETAIL [email or web address] respirations Mental status Awake,Calm 10/31/24 09:34 [email or web address] [email or web address] nausea No 10/31/24 09:34 RETAIL [email or web address] Vomiting No 10/31/24 09:34 RETAIL [email or web address] Anesthesia Postop Eval I: Fluid Summary Crystalloid volume administer 700 10/31/24 09:34 RETAIL [email or web address] (ml) Colloids volume administered ( ml) Blood Product volume administered (ml) Total IV fluid infused 700 10/31/24 09:34 RETAIL [email or web address] Anesthesia Postop Eval I: Summary Notes Anesthesia Complication No 10/31/24 09:34 RETAIL [email or web address] Anesthesia Complication Comment: Post-operative progress note Anesthesia: Postop Eval II Evaluation Mental status: Awake Pain Level: 2 nausea: No Vomiting: No
--- NOTE | 2024-10-31 10:18 | PCM.POSTANE2 ---
Anesthesia Postop Eval I Sum Postop Eval Completion status Anesthesia document: Postop Eval 1 completed: Yes Anesthesia Postop Eval I Summary Anesthesia Postop Eval I Summary: Anesthesia Postop Eval I: Assessment Summary Airway patent Yes 10/31/24 09:34 [email or web address] Spontaneous unlabored Yes 10/31/24 09:34 [email or web address] respirations Mental status Awake,Calm 10/31/24 09:34 [email or web address] nausea No 10/31/24 09:34 [email or web address] Vomiting No 10/31/24 09:34 [email or web address] Anesthesia Postop Eval I: Fluid Summary Crystalloid volume administer 700 10/31/24 09:34 [email or web address] (ml) Colloids volume administered ( ml) Blood Product volume administered (ml) Total IV fluid infused 700 10/31/24 09:34 [email or web address] Anesthesia Postop Eval I: Summary Notes Anesthesia Complication No 10/31/24 09:34 [email or web address] Anesthesia Complication Comment: Post-operative progress note Anesthesia: Postop Eval II Evaluation Mental status: Awake Pain Level: 2 nausea: No Vomiting: No
== END 2024-10-31 11:12 | disposition home or self-care (01) ==
LOC: SDC 07:08 → AC 07:10
PROVIDERS: PCP Family Medicine; Referring Provider Surgery Plastic and Reconstructive Surgery; Visit Provider Surgery Plastic and Reconstructive Surgery
PROC: (CPT 26055; principal; 2024-10-31 08:35)
DX: M67.431 Ganglion, right wrist (principal)
CPT/HCPCS: 26160; 01810; 88304; 88305; J2405